=== PATIENT | male | born 1940 | race Caucasian/White ===

== ENCOUNTER 2017-01-05 22:15 | Emergency (ER) | payer MEDICARE ==
[2017-01-05 22:35] LABS: Glucose,Whole Blood 112 mg/dL (75-99)
[2017-01-05 23:06] LABS: Basophils % (A) 0 %; CH 35.1; CHCM 34.2; Eosinophils # (A) 0.2 k/uL (0-0.7); Eosinophils % (A) 2 %; HCT 47.9 % (39.0-53.0); HDW 2.16; HGB 15.9 gm/dL (13.0-17.5); Luc # (Auto) 0.16; Luc % (Auto) 2; Lymphocytes # (A) 1.2 k/uL (1.0-4.8); Lymphocytes % (A) 16 %; MCH 34.2 pg (25.0-35.0); MCHC 33.2 g/dL (31.0-37.0); MCV 103.1 fL (80.0-100.0); Macrocytosis Slight; Monocytes # (A) 0.4 k/uL (0-1.0); Monocytes % (A) 5 %; Neutrophils # (A) 5.3 k/uL (1.3-7.7); Neutrophils % (A) 74 %; RBC 4.65 m/uL (4.30-5.90); RDW 13.5 % (11.5-15.5); WBC 7.2 k/uL (3.8-10.6); WBC (Perox) 7.03
[2017-01-05 23:14] LABS: Anion Gap 12 mmol/L; Calcium 9.4 mg/dL (8.4-10.2); Carbon Dioxide 24 mmol/L (22-30); Chloride 104 mmol/L (98-107); Glucose 117 mg/dL (74-99); Non-African American GFR(MDRD) >60 (>60 ml/min/1.73 sqM); Sodium 140 mmol/L (137-145); Total Bilirubin 0.8 mg/dL (0.2-1.3); Total Protein 6.7 g/dL (6.3-8.2)
[2017-01-05 23:16] LABS: ALT 36 U/L (21-72); AST 29 U/L (17-59); Alkaline Phosphatase 62 U/L (38-126); Blood Urea Nitrogen 33 mg/dL (9-20); Phosphorous 3.4 mg/dL (2.5-4.5); Potassium 4.1 mmol/L (3.5-5.1)
--- NOTE | 2017-01-05 23:25 | XR ---
EXAM: XR Chest, 2 Views CLINICAL HISTORY: Reason: Pain TECHNIQUE: Frontal and lateral views of the chest. COMPARISON: 09/12/15 FINDINGS: Lungs: Left basilar platelike atelectasis. Pleural space: Unremarkable. No pneumothorax. Heart: Unremarkable. No cardiomegaly. Mediastinum: Unremarkable. Bones/joints: Multilevel degenerative changes of the spine with bridging marginal osteophytes. IMPRESSION: Left basilar platelike atelectasis.
[2017-01-05 23:27] LABS: Creatine Kinase 48 U/L (55-170)
[2017-01-05 23:39] LABS: Creatine Kinase MB 1.3 ng/mL (0.0-2.4); Troponin I <0.012 ng/mL (0.000-0.034)
--- NOTE | 2017-01-05 23:53 | ED ---
Altered Mental Status HPI - General Source: patient Mode of arrival: ambulatory Limitations: altered mental status <Subha Elizabeth - Last Filed: 01/06/17 00:47> <AntwanRoc - Last Filed: 01/06/17 00:56> - General Chief Complaint: Altered Mental Status Stated Complaint: altered Time Seen by Provider: 01/05/17 22:29 - History of Present Illness Initial Comments: 76-year-old male patient presents to emergency department today after having an episode of acute confusion and slurred speech. states that she and the patient were lying in bed having a conversation. She states that he went by it when she asked him what was wrong when he spoke his speech was garbled. She states that he has had numerous episodes similar to this in the past. He has known hypoglycemia. She did give the patient glucose tablets and try to get him to drink some milk. states that after he took a sip of an out patient started breathing heavily. She states that when she tried a question patient asked what was wrong he seemed confused and wouldn't answer her. She states when his breathing continued to be labored she called EMS. She states at that time patient asked her what she was doing, took the phone from her hand and tried to brush his hair with her. She states that patient continued with the confusion for about 35 minutes. She states EMS did arrive there patient seemed to come out of it. She states that he repeatedly questioned why EMS was there. She did convince him to come to the emergency department for evaluation. During my exam patient is alert and oriented 4. Patient states he has a foggy memory of the incident. states that he seemed to be back to normal. Speech is fluent and clear. Patient denies any headache, dizziness, weakness, chest pain, shortness of breath,, congestion, abdominal pain, nausea, vomiting, conservation, diarrhea, hematuria, dysuria, urinary frequency or urinary urgency. The patient states that he has had 50 similar episodes over the last 4 years. 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 states that patient seems to get the episodes more often when he does heavy labor. She states that over the last 2 days he has been cutting down trees and loading the residual wood. She states that they have had full workups and numerous CAT scans in the past and have not been able to find the cause of these episodes. Patient states that they do have a follow-up appointment at [facility] tomorrow with a genetics nurse. States that he goes for a rechecks every 6 months. (Subha Elizabeth) - Related Data Home Medications Medication Instructions Recorded Confirmed Testosterone [Androderm] 2 patch TOPICAL DAILY 09/26/14 01/05/17 Multivit-Min/FA/Lycopen/Lutein 1 tab PO DAILY 09/12/15 01/05/17 [Centrum Silver Tablet] Phos-Nak Powder Concentrate 1 packet PO QID 09/12/15 01/05/17 Biotin 5 mg PO DAILY 01/05/17 01/05/17 Cyanocobalamin (Vitamin B-12) 1,000 mcg PO DAILY 01/05/17 01/05/17 [Vitamin B-12] Allergies Allergy/AdvReac Type Severity Reaction Status Date / Time No Known Allergies Allergy Verified 01/05/17 23:26 Review of Systems ROS Other: All systems not noted in ROS Statement are negative. <Subha Elizabeth - Last Filed: 01/06/17 00:47> ROS Other: All systems not noted in ROS Statement are negative. <Roc Moncada - Last Filed: 01/06/17 00:56> ROS Statement: Those systems with pertinent positive or pertinent negative responses have been documented in the HPI. 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 History of Any Multi-Drug Resistant Organisms: None Reported Past Surgical History: Appendectomy, Hernia Repair Additional Past Surgical History / Comment(s): DEVIATED NASAL SEPTUM SX X2, TURP , HAD A PERM PACER PUT due to syncopy but found to have LOW PHOSPHOUS-PACER SINCE REMOVED BUT WIRES STILL IN PLACE.COLONOSCPY, EGD, L inguina hernia repair, electrical vaporization of prostate twice. sinus surgery , colonoscopy Past Anesthesia/Blood Transfusion Reactions: No Reported Reaction Additional Past Anesthesia/Blood Transfusion Reaction / Comment(s): Pt has never received blood. Past Psychological History: No Psychological Hx Reported Smoking Status: Former smoker Past Alcohol Use History: None Reported Past Drug Use History: None Reported - Past Family History Father Family Medical History: Myocardial Infarction ([place]) Additional Family Medical History / Comment(s): Father at age 66 or 67yrs of possible UT Mother Family Medical History: No Reported History Additional Family Medical History / Comment(s): AGE 93 was healthy Brother(s) Family Medical History: Cancer Additional Family Medical History / Comment(s): BRAIN CANCER <Subha Elizabeth - Last Filed: 01/06/17 00:47> General Exam Limitations: altered mental status General appearance: alert, in no apparent distress Head exam: Present: atraumatic, normocephalic, normal inspection Eye exam: Present: normal appearance, PERRL, EOMI. Absent: scleral icterus, conjunctival injection, periorbital swelling Pupils: Present: normal accommodation ENT exam: Present: normal exam, normal oropharynx, mucous membranes moist Neck exam: Present: normal inspection. Absent: tenderness, meningismus, lymphadenopathy Respiratory exam: Present: normal lung sounds bilaterally. Absent: respiratory distress, wheezes, rales, rhonchi, stridor Cardiovascular Exam: Present: regular rate, normal rhythm, normal heart sounds. Absent: systolic murmur, diastolic murmur, rubs, gallop, clicks GI/Abdominal exam: Present: soft, normal bowel sounds. Absent: distended, tenderness, guarding, rebound, rigid Extremities exam: Present: normal inspection, full ROM, normal capillary refill. Absent: tenderness, pedal edema, joint swelling, calf tenderness Back exam: Present: normal inspection Neurological exam: Present: alert, oriented X3, CN II-XII intact, other (GCS 15. NIHHS 0. ) Psychiatric exam: Present: normal affect, normal mood Skin exam: Present: warm, dry, intact, normal color. Absent: rash <Subha Elizabeth - Last Filed: 01/06/17 00:47> Course <Subha Elizabeth - Last Filed: 01/06/17 00:47> <Roc Moncada - Last Filed: 01/06/17 00:56> Vital Signs 01/05/17 01/05/17 01/05/17 22:23 22:49 23:03 Temperature 98.7 F Pulse Rate 77 78 78 Respiratory 20 18 18 Rate Blood Pressure 178/84 149/82 151/76 O2 Sat by Pulse 96 99 99 Oximetry 01/06/17 01/06/17 00:00 00:52 Temperature 97.4 F L Pulse Rate 75 69 Respiratory 18 16 Rate Blood Pressure 154/78 119/70 O2 Sat by Pulse 95 98 Oximetry - Reevaluation(s) Reevaluation #1: 01/06/17 00:56 I did personally evaluate this case and did review the findings. The patient does not want to be admitted to the hospital at this time. This apparently is one of many similar events in the past. They do not want CAT scan. They will follow-up with her doctor on palpation. There are where the risks and benefits. They were offered admission and did not want to be admitted. (Roc Moncada) Medical Decision Making - Lab Data Result diagrams: 01/05/17 22:40 01/05/17 22:40 - Radiology Data Radiology results: report reviewed, image reviewed <Subha Elizabeth - Last Filed: 01/06/17 00:47> - Lab Data Result diagrams: 01/05/17 22:40 01/05/17 22:40 <Roc Moncada - Last Filed: 01/06/17 00:56> - Medical Decision Making 76-year-old male patient presented to emergency department today after an acute episode of confusion and slurred speech. states episode lasted about 35 minutes. She also stated the patient has had approximately 50 episodes similar to this over the last 4 years, has had a workup numerous times without any diagnosis for why this keeps happening. Did offer a computed tomography scan at patient presentation. They state they have had numerous CT scans in the past all have been normal, they refused this test at this time. Labs were performed and reviewed and did show some mild dehydration. Phosphorus level is normal at this time. Chest x-ray no acute cardiopulmonary process. Did recommend admission for further evaluation and observation per patient. Patient states that he is feeling back to his normal self, states that patient seems to be acting normally for his baseline. They refused his admission at this time stating that he does have a follow-up appointment tomorrow that they do not want to miss. Patient is currently alert and oriented 4. Has remained alert and oriented 4 throughout stay in the emergency department. They state that he will follow-up with his primary care physician in one to 2 days for recheck. They state they will return immediately for any new, worsening, or concerning symptoms. (Subha Elizabeth) - Lab Data Lab Results 01/05/17 01/05/17 01/05/17 Range/Units 22:33 22:40 22:40 WBC 7.2 (3.8-10.6) k/uL RBC 4.65 (4.30-5.90) m/uL Hgb 15.9 (13.0-17.5) gm/dL Hct 47.9 (39.0-53.0) % MCV 103.1 H (80.0-100.0) fL MCH 34.2 (25.0-35.0) pg MCHC 33.2 (31.0-37.0) g/dL RDW 13.5 (11.5-15.5) % Plt Count 142 L (150-450) k/uL Neutrophils % 74 % Lymphocytes % 16 % Monocytes % 5 % Eosinophils % 2 % Basophils % 0 % Neutrophils # 5.3 (1.3-7.7) k/uL Lymphocytes # 1.2 (1.0-4.8) k/uL Monocytes # 0.4 (0-1.0) k/uL Eosinophils # 0.2 (0-0.7) k/uL Basophils # 0.0 (0-0.2) k/uL Macrocytosis Slight Sodium (137-145) mmol/L Potassium (3.5-5.1) mmol/L Chloride (98-107) mmol/L Carbon Dioxide (22-30) mmol/L Anion Gap mmol/L BUN (9-20) mg/dL Creatinine (0.66-1.25) mg/dL Est GFR (MDRD) Af Amer (>60 ml/min/1.73 sqM) Est GFR (MDRD) Non-Af (>60 ml/min/1.73 sqM) Glucose (74-99) mg/dL POC Glucose (mg/dL) 112 H (75-99) mg/dL POC Glu Center Director Lead Teacher ID Edith Boudreaux Calcium (8.4-10.2) mg/dL Phosphorus (2.5-4.5) mg/dL Total Bilirubin (0.2-1.3) mg/dL AST (17-59) U/L ALT (21-72) U/L Alkaline Phosphatase (38-126) U/L Total Creatine Kinase 48 L (55-170) U/L CK-MB (CK-2) 1.3 (0.0-2.4) ng/mL CK-MB (CK-2) Rel Index 2.7 Troponin I <0.012 (0.000-0.034) ng/mL Total Protein (6.3-8.2) g/dL Albumin (3.5-5.0) g/dL Urine Color Urine Appearance (Clear) Urine pH (5.0-8.0) Ur Specific [place] (1.001-1.035) Urine Protein (Negative) Urine Glucose (UA) (Negative) Urine Ketones (Negative) Urine Blood (Negative) Urine Nitrite (Negative) Urine Bilirubin (Negative) Urine Urobilinogen (<2.0) mg/dL Ur Leukocyte Esterase (Negative) 01/05/17 01/05/17 Range/Units 22:40 23:51 WBC (3.8-10.6) k/uL RBC (4.30-5.90) m/uL Hgb (13.0-17.5) gm/dL Hct (39.0-53.0) % MCV (80.0-100.0) fL MCH (25.0-35.0) pg MCHC (31.0-37.0) g/dL RDW (11.5-15.5) % Plt Count (150-450) k/uL Neutrophils % % Lymphocytes % % Monocytes % % Eosinophils % % Basophils % % Neutrophils # (1.3-7.7) k/uL Lymphocytes # (1.0-4.8) k/uL Monocytes # (0-1.0) k/uL Eosinophils # (0-0.7) k/uL Basophils # (0-0.2) k/uL Macrocytosis Sodium 140 (137-145) mmol/L Potassium 4.1 (3.5-5.1) mmol/L Chloride 104 (98-107) mmol/L Carbon Dioxide 24 (22-30) mmol/L Anion Gap 12 mmol/L BUN 33 H (9-20) mg/dL Creatinine 1.00 (0.66-1.25) mg/dL Est GFR (MDRD) Af Amer >60 (>60 ml/min/1.73 sqM) Est GFR (MDRD) Non-Af >60 (>60 ml/min/1.73 sqM) Glucose 117 H (74-99) mg/dL POC Glucose (mg/dL) (75-99) mg/dL POC Glu Center Director Lead Teacher ID Calcium 9.4 (8.4-10.2) mg/dL Phosphorus 3.4 (2.5-4.5) mg/dL Total Bilirubin 0.8 (0.2-1.3) mg/dL AST 29 (17-59) U/L ALT 36 (21-72) U/L Alkaline Phosphatase 62 (38-126) U/L Total Creatine Kinase (55-170) U/L CK-MB (CK-2) (0.0-2.4) ng/mL CK-MB (CK-2) Rel Index Troponin I (0.000-0.034) ng/mL Total Protein 6.7 (6.3-8.2) g/dL Albumin 4.2 (3.5-5.0) g/dL Urine Color Yellow Urine Appearance Clear (Clear) Urine pH 6.5 (5.0-8.0) Ur Specific [place] 1.017 (1.001-1.035) Urine Protein Negative (Negative) Urine Glucose (UA) Negative (Negative) Urine Ketones Negative (Negative) Urine Blood Negative (Negative) Urine Nitrite Negative (Negative) Urine Bilirubin Negative (Negative) Urine Urobilinogen <2.0 (<2.0) mg/dL Ur Leukocyte Esterase Negative (Negative) - Radiology Data Two-view x-ray of the chest shows left basilar platelike atelectasis, pleural spaces unremarkable, no pneumothorax, heart is unremarkable no cardia megaly, mediastinum is unremarkable, bones and joints show multilevel degenerative changes of the spine with bridging marginal osteophytes. Impression by Dr. Clark reveals left basilar platelike atelectasis. (Subha Elizabeth) Disposition Time of Disposition: 00:47 <Subha Elizabeth - Last Filed: 01/06/17 00:47> <Roc Moncada - Last Filed: 01/06/17 00:56> Clinical Impression: Episode of confusion Disposition: HOME SELF-CARE Condition: Good Instructions: Altered Mental Status (ED) Additional Instructions: Keep scheduled appointment with her genetics nurse tomorrow at [facility]. Follow up with primary care physician in one to 2 days for recheck. Return immediately for any new, worsening, returning, or concerning symptoms. Referrals: Akbar Encinas MD [Primary Care Provider] - 1-2 days
[2017-01-06 00:04] LABS: Appearance,Urine Clear (Clear); Bilirubin,Urine Negative (Negative); Glucose,Urine (UA) Negative (Negative); Ketones,Urine Negative (Negative); Leukocyte Esterase,Urine Negative (Negative); Nitrite,Urine Negative (Negative); PH, Urine 6.5 (5.0-8.0); Protein,Urine Negative (Negative); Specific Gravity,Urine 1.017 (1.001-1.035); UA Billing (MACRO vs. MICRO) CHEM; Urobilinogen,Urine <2.0 mg/dL (<2.0)
[2017-01-06 00:54] VITALS: BP 119/70; PULSE 69; RESP 16; TEMP 97.4
== END 2017-01-06 00:52 | disposition home or self-care (01) ==
LOC: EC 22:15
DX: R41.0 Disorientation, unspecified (principal); E83.30 Disorder of phosphorus metabolism, unspecified; J98.11 Atelectasis; Z79.899 Other long term (current) drug therapy; Z87.891 Personal history of nicotine dependence
CPT/HCPCS: 36415; 71020; 80053; 81003; 82550; 82553; 84100; 84484; 85025; 93005; 99285

== ENCOUNTER → 2017-11-19 | Outpatient (CLI) | payer MEDICARE | END | disposition home or self-care (01) | LOC: LABWHC1 09:10 | PROVIDERS: ATTEND Family Medicine | DX: E27.40 Unspecified adrenocortical insufficiency (principal) | CPT/HCPCS: 36415; 82024; 82533 ==

== ENCOUNTER 2018-03-30 03:17 | Inpatient (IN) | payer MEDICARE ==
[2018-03-30] MEDS ORDERED: LORazepam 2 MG/ML INJ IM STA (03:23)
[2018-03-30] MEDS ORDERED: SODIUM CHLORIDE 0.9% 1,000 ML IV STA (03:23)
[2018-03-30 03:31] LABS: Glucose,Whole Blood 140 mg/dL (75-99)
[2018-03-30 03:43] LABS: Basophils % (A) 0 %; Eosinophils # (A) 0.3 k/uL (0-0.7); Eosinophils % (A) 3 %; HCT 45.4 % (39.0-53.0); HGB 15.1 gm/dL (13.0-17.5); Lymphocytes # (A) 3.7 k/uL (1.0-4.8); Lymphocytes % (A) 37 %; MCHC 33.3 g/dL (31.0-37.0); MCV 102.3 fL (80.0-100.0); Macrocytosis Slight; Mean Platelet Volume 8.1; Monocytes # (A) 0.5 k/uL (0-1.0); Monocytes % (A) 5 %; Neutrophils # (A) 5.2 k/uL (1.3-7.7); Neutrophils % (A) 53 %; Platelet Count 193 k/uL (150-450); RBC 4.44 m/uL (4.30-5.90); RDW 12.8 % (11.5-15.5); WBC 9.9 k/uL (3.8-10.6)
[2018-03-30 03:55] LABS: ALT 31 U/L (21-72); AST 25 U/L (17-59); Albumin 4.1 g/dL (3.5-5.0); Alcohol <10 mg/dL; Alkaline Phosphatase 64 U/L (38-126); Anion Gap 11 mmol/L; Blood Urea Nitrogen 29 mg/dL (9-20); Calcium 9.6 mg/dL (8.4-10.2); Carbon Dioxide 24 mmol/L (22-30); Chloride 105 mmol/L (98-107); Glucose 149 mg/dL (74-99); Potassium 3.5 mmol/L (3.5-5.1); Sodium 140 mmol/L (137-145); Total Bilirubin 0.6 mg/dL (0.2-1.3); Total Protein 6.7 g/dL (6.3-8.2)
[2018-03-30 04:09] LABS: Appearance,Urine Clear (Clear); Bilirubin,Urine Negative (Negative); Blood,Urine Negative (Negative); Color,Urine Yellow; Glucose,Urine (UA) Negative (Negative); Ketones,Urine Negative (Negative); Leukocyte Esterase,Urine Negative (Negative); Nitrite,Urine Negative (Negative); PH, Urine 6.5 (5.0-8.0); Protein,Urine Trace (Negative); Urobilinogen,Urine <2.0 mg/dL (<2.0)
--- NOTE | 2018-03-30 04:16 | ED ---
Altered Mental Status HPI - General Chief Complaint: Altered Mental Status Stated Complaint: Altered Mental Status Time Seen by Provider: 03/30/18 03:23 Source: patient, EMS Mode of arrival: EMS Limitations: no limitations, altered mental status - History of Present Illness Initial Comments: Wilson Lozano is a 77-year-old male with a distant medical history of a single seizure in his 50s which his reports was due to low phosphorus level. Patient was subsequently had a phosphorus supplementation until June of this year. The patient has been in his usual state of health, reports that the exercise regularly walking at least a mile every day and doing yoga. She reports that she woke up to find him shaking and not responding to her to get his attention. She was concerned that he was seizing and 911 was called. EMS reports that they arrived on scene, the patient was altered, not responding appropriately. Patient is noted to have some tongue biting and also urinary incontinence. Patient was combative with EMS and was restrained and transported to the ER for further evaluation. - Related Data Home Medications Medication Instructions Recorded Confirmed Multivit-Min/FA/Lycopen/Lutein 1 tab PO DAILY 09/12/15 03/30/18 [Centrum Silver Tablet] Cyanocobalamin (Vitamin B-12) 1,000 mcg PO DAILY 01/05/17 03/30/18 [Vitamin B-12] Allergies Allergy/AdvReac Type Severity Reaction Status Date / Time No Known Allergies Allergy Verified 03/30/18 03:23 Review of Systems ROS Statement: Those systems with pertinent positive or pertinent negative responses have been documented in the HPI. ROS Other: All systems not noted in ROS Statement are negative. ( provided review of systems to the best of her ability) Limitations: ROS unobtainable due to patients medical condition (Patient unable to provide review of systems due to altered mental status) Past Medical History Past Medical History: GERD/Reflux, Osteoarthritis (OA), Prostate Disorder, Seizure Disorder, Skin Disorder, Syncope Additional Past Medical History / Comment(s): low phosphorus-loss of consciousness with this at times-etiology unknown after numerous work-ups, HYPOTESTOSTERONISM, PSORIASES, ARTHRITIS,LACTOSE INTOLERANT, hx of BPH and has had prostate surgery twice, ocular migraines. History of Any Multi-Drug Resistant Organisms: None Reported Past Surgical History: Appendectomy, Hernia Repair Additional Past Surgical History / Comment(s): DEVIATED NASAL SEPTUM SX X2, TURP , HAD A PERM PACER PUT due to syncopy but found to have LOW PHOSPHOUS-PACER SINCE REMOVED BUT WIRES STILL IN PLACE.COLONOSCPY, EGD, L inguina hernia repair, electrical vaporization of prostate twice. sinus surgery , colonoscopy Past Anesthesia/Blood Transfusion Reactions: No Reported Reaction Additional Past Anesthesia/Blood Transfusion Reaction / Comment(s): Pt has never received blood. Past Psychological History: No Psychological Hx Reported Smoking Status: Former smoker Past Alcohol Use History: None Reported Past Drug Use History: None Reported - Past Family History Father Family Medical History: Myocardial Infarction ([place]) Additional Family Medical History / Comment(s): Father at age 66 or 67yrs of possible [place] Mother Family Medical History: No Reported History Additional Family Medical History / Comment(s): AGE 93 was healthy Brother(s) Family Medical History: Cancer Additional Family Medical History / Comment(s): BRAIN CANCER General Exam - General Exam Comments Initial Comments: Physical Exam GENERAL: Patient is altered, rashing, yelling out but not making any sense HENT: Normocephalic, Atraumatic. Noted to have tongue biting with dried blood in the oropharynx EYES: PERRL, EOMI PULMONARY: Unlabored respirations. No audible rales rhonchi or wheezing was noted. CARDIOVASCULAR: There is a regular rate and rhythm without any murmurs gallops or rubs. Pacemaker in place in left chest ABDOMEN: Soft and nontender with normal bowel sounds. SKIN: Skin is clear with no lesions or rashes and otherwise unremarkable. : Deferred NEUROLOGIC: Patient is awake, alert and agitated, oriented to self only MUSCULOSKELETAL: Normal extremities with adequate strength and full range of motion. No lower extremity swelling or edema. No calf tenderness. PSYCHIATRIC: Confused, agitated Limitations: no limitations Limitations: no limitations, altered mental status Course Vital Signs 03/30/18 03/30/18 03/30/18 03:20 03:26 03:30 Temperature 97.7 F Pulse Rate 93 93 92 Respiratory 20 13 16 Rate Blood Pressure 146/87 169/97 162/86 O2 Sat by Pulse 97 Oximetry 03/30/18 03/30/18 03/30/18 03:40 03:50 04:00 Temperature Pulse Rate 85 Respiratory 15 12 Rate Blood Pressure 146/87 150/83 150/83 O2 Sat by Pulse Oximetry 03/30/18 03/30/18 03/30/18 04:10 04:20 04:30 Temperature Pulse Rate 79 80 78 Respiratory 12 17 14 Rate Blood Pressure 138/79 138/79 O2 Sat by Pulse 90 L 97 95 Oximetry 03/30/18 03/30/18 03/30/18 04:40 04:50 05:00 Temperature Pulse Rate 80 74 72 Respiratory 17 14 14 Rate Blood Pressure 137/91 100/49 100/49 O2 Sat by Pulse 91 L 93 L 93 L Oximetry 03/30/18 03/30/18 05:20 05:30 Temperature Pulse Rate 73 79 Respiratory 19 16 Rate Blood Pressure 93/50 93/50 O2 Sat by Pulse 93 L 94 L Oximetry Medical Decision Making - Medical Decision Making Patient arrived to the ER via EMS priority 1 Patient was seen and evaluated immediately upon arrival to the emergency department Patient was agitated and thrashing, striking out at staff. Concerning the patient is postictal, IM Ativan was ordered Labs and imaging were ordered Patient became calm after IM Ativan, was able to cooperate for computed tomography scan Labs notable for elevated lactic which is likely secondary to seizure activity CT head with no acute findings Patient resting comfortably after IM Ativan Results were discussed with the patient's At this time I have a high suspicion that this patient did in fact have a seizure. I will plan to admit him to the hospital with seizure precautions and a consult to neurology. is agreeable to this. Patient care was discussed with his primary care physician Dr. Encinas who accepts the admission. - Lab Data Result diagrams: 03/30/18 03:30 03/30/18 03:30 Lab Results 03/30/18 03/30/18 03/30/18 Range/Units 03:26 03:30 03:30 WBC 9.9 (3.8-10.6) k/uL RBC 4.44 (4.30-5.90) m/uL Hgb 15.1 (13.0-17.5) gm/dL Hct 45.4 (39.0-53.0) % MCV 102.3 H (80.0-100.0) fL MCH 34.0 (25.0-35.0) pg MCHC 33.3 (31.0-37.0) g/dL RDW 12.8 (11.5-15.5) % Plt Count 193 (150-450) k/uL Neutrophils % 53 % Lymphocytes % 37 % Monocytes % 5 % Eosinophils % 3 % Basophils % 0 % Neutrophils # 5.2 (1.3-7.7) k/uL Lymphocytes # 3.7 (1.0-4.8) k/uL Monocytes # 0.5 (0-1.0) k/uL Eosinophils # 0.3 (0-0.7) k/uL Basophils # 0.0 (0-0.2) k/uL Macrocytosis Slight PT (9.0-12.0) sec INR (<1.2) APTT (22.0-30.0) sec Sodium 140 (137-145) mmol/L Potassium 3.5 (3.5-5.1) mmol/L Chloride 105 (98-107) mmol/L Carbon Dioxide 24 (22-30) mmol/L Anion Gap 11 mmol/L BUN 29 H (9-20) mg/dL Creatinine 1.11 (0.66-1.25) mg/dL Est GFR (CKD-EPI)AfAm 73 (>60 ml/min/1.73 sqM) Est GFR (CKD-EPI)NonAf 63 (>60 ml/min/1.73 sqM) Glucose 149 H (74-99) mg/dL POC Glucose (mg/dL) 140 H (75-99) mg/dL POC Glu Senior National Account Manager ID Lorraine Alas Plasma Lactic Acid Amish (0.7-2.0) mmol/L Calcium 9.6 (8.4-10.2) mg/dL Phosphorus (2.5-4.5) mg/dL Total Bilirubin 0.6 (0.2-1.3) mg/dL AST 25 (17-59) U/L ALT 31 (21-72) U/L Alkaline Phosphatase 64 (38-126) U/L Troponin I (0.000-0.034) ng/mL Total Protein 6.7 (6.3-8.2) g/dL Albumin 4.1 (3.5-5.0) g/dL Urine Color Urine Appearance (Clear) Urine pH (5.0-8.0) Ur Specific [place] (1.001-1.035) Urine Protein (Negative) Urine Glucose (UA) (Negative) Urine Ketones (Negative) Urine Blood (Negative) Urine Nitrite (Negative) Urine Bilirubin (Negative) Urine Urobilinogen (<2.0) mg/dL Ur Leukocyte Esterase (Negative) Urine Opiates Screen (NotDetected) Ur Oxycodone Screen (NotDetected) Urine Methadone Screen (NotDetected) Ur Propoxyphene Screen (NotDetected) Ur Barbiturates Screen (NotDetected) U Tricyclic Antidepress (NotDetected) Ur Phencyclidine Scrn (NotDetected) Ur Amphetamines Screen (NotDetected) U Methamphetamines Scrn (NotDetected) U Benzodiazepines Scrn (NotDetected) Urine Cocaine Screen (NotDetected) U Marijuana (THC) Screen (NotDetected) Serum Alcohol <10 mg/dL 03/30/18 03/30/18 03/30/18 Range/Units 03:30 03:30 03:30 WBC (3.8-10.6) k/uL RBC (4.30-5.90) m/uL Hgb (13.0-17.5) gm/dL Hct (39.0-53.0) % MCV (80.0-100.0) fL MCH (25.0-35.0) pg MCHC (31.0-37.0) g/dL RDW (11.5-15.5) % Plt Count (150-450) k/uL Neutrophils % % Lymphocytes % % Monocytes % % Eosinophils % % Basophils % % Neutrophils # (1.3-7.7) k/uL Lymphocytes # (1.0-4.8) k/uL Monocytes # (0-1.0) k/uL Eosinophils # (0-0.7) k/uL Basophils # (0-0.2) k/uL Macrocytosis PT 10.0 (9.0-12.0) sec INR 1.0 (<1.2) APTT 21.0 L (22.0-30.0) sec Sodium (137-145) mmol/L Potassium (3.5-5.1) mmol/L Chloride (98-107) mmol/L Carbon Dioxide (22-30) mmol/L Anion Gap mmol/L BUN (9-20) mg/dL Creatinine (0.66-1.25) mg/dL Est GFR (CKD-EPI)AfAm (>60 ml/min/1.73 sqM) Est GFR (CKD-EPI)NonAf (>60 ml/min/1.73 sqM) Glucose (74-99) mg/dL POC Glucose (mg/dL) (75-99) mg/dL POC Glu Senior National Account Manager ID Plasma Lactic Acid Amish 4.9 H* (0.7-2.0) mmol/L Calcium (8.4-10.2) mg/dL Phosphorus (2.5-4.5) mg/dL Total Bilirubin (0.2-1.3) mg/dL AST (17-59) U/L ALT (21-72) U/L Alkaline Phosphatase (38-126) U/L Troponin I <0.012 (0.000-0.034) ng/mL Total Protein (6.3-8.2) g/dL Albumin (3.5-5.0) g/dL Urine Color Urine Appearance (Clear) Urine pH (5.0-8.0) Ur Specific [place] (1.001-1.035) Urine Protein (Negative) Urine Glucose (UA) (Negative) Urine Ketones (Negative) Urine Blood (Negative) Urine Nitrite (Negative) Urine Bilirubin (Negative) Urine Urobilinogen (<2.0) mg/dL Ur Leukocyte Esterase (Negative) Urine Opiates Screen (NotDetected) Ur Oxycodone Screen (NotDetected) Urine Methadone Screen (NotDetected) Ur Propoxyphene Screen (NotDetected) Ur Barbiturates Screen (NotDetected) U Tricyclic Antidepress (NotDetected) Ur Phencyclidine Scrn (NotDetected) Ur Amphetamines Screen (NotDetected) U Methamphetamines Scrn (NotDetected) U Benzodiazepines Scrn (NotDetected) Urine Cocaine Screen (NotDetected) U Marijuana (THC) Screen (NotDetected) Serum Alcohol mg/dL 03/30/18 03/30/18 Range/Units 03:30 03:42 WBC (3.8-10.6) k/uL RBC (4.30-5.90) m/uL Hgb (13.0-17.5) gm/dL Hct (39.0-53.0) % MCV (80.0-100.0) fL MCH (25.0-35.0) pg MCHC (31.0-37.0) g/dL RDW (11.5-15.5) % Plt Count (150-450) k/uL Neutrophils % % Lymphocytes % % Monocytes % % Eosinophils % % Basophils % % Neutrophils # (1.3-7.7) k/uL Lymphocytes # (1.0-4.8) k/uL Monocytes # (0-1.0) k/uL Eosinophils # (0-0.7) k/uL Basophils # (0-0.2) k/uL Macrocytosis PT (9.0-12.0) sec INR (<1.2) APTT (22.0-30.0) sec Sodium (137-145) mmol/L Potassium (3.5-5.1) mmol/L Chloride (98-107) mmol/L Carbon Dioxide (22-30) mmol/L Anion Gap mmol/L BUN (9-20) mg/dL Creatinine (0.66-1.25) mg/dL Est GFR (CKD-EPI)AfAm (>60 ml/min/1.73 sqM) Est GFR (CKD-EPI)NonAf (>60 ml/min/1.73 sqM) Glucose (74-99) mg/dL POC Glucose (mg/dL) (75-99) mg/dL POC Glu Senior National Account Manager ID Plasma Lactic Acid Amish (0.7-2.0) mmol/L Calcium (8.4-10.2) mg/dL Phosphorus 3.0 (2.5-4.5) mg/dL Total Bilirubin (0.2-1.3) mg/dL AST (17-59) U/L ALT (21-72) U/L Alkaline Phosphatase (38-126) U/L Troponin I (0.000-0.034) ng/mL Total Protein (6.3-8.2) g/dL Albumin (3.5-5.0) g/dL Urine Color Yellow Urine Appearance Clear (Clear) Urine pH 6.5 (5.0-8.0) Ur Specific [place] 1.020 (1.001-1.035) Urine Protein Trace H (Negative) Urine Glucose (UA) Negative (Negative) Urine Ketones Negative (Negative) Urine Blood Negative (Negative) Urine Nitrite Negative (Negative) Urine Bilirubin Negative (Negative) Urine Urobilinogen <2.0 (<2.0) mg/dL Ur Leukocyte Esterase Negative (Negative) Urine Opiates Screen Not Detected (NotDetected) Ur Oxycodone Screen Not Detected (NotDetected) Urine Methadone Screen Not Detected (NotDetected) Ur Propoxyphene Screen Not Detected (NotDetected) Ur Barbiturates Screen Not Detected (NotDetected) U Tricyclic Antidepress Not Detected (NotDetected) Ur Phencyclidine Scrn Not Detected (NotDetected) Ur Amphetamines Screen Not Detected (NotDetected) U Methamphetamines Scrn Not Detected (NotDetected) U Benzodiazepines Scrn Not Detected (NotDetected) Urine Cocaine Screen Not Detected (NotDetected) U Marijuana (THC) Screen Not Detected (NotDetected) Serum Alcohol mg/dL - EKG Data EKG Comments: EKG obtained at 3:25 AM, rate is 93, rhythm is sinus, there is a left axis, there are normal intervals, LA 184, QRS 120, QTC 489. There is noted to be a biphasic T-wave in V3 no other acute ST elevations or depressions. Disposition Clinical Impression: Seizure, Lactic acidosis Disposition: ADMITTED IP TO THIS [facility] Condition: Stable Is patient prescribed a controlled substance at d/c from ED?: No Referrals: Akbar Encinas MD [Primary Care Provider] - 1-2 days
[2018-03-30 04:21] LABS: Amphetamine Screen,Urine Not Detected (NotDetected); Barbiturate Screen,Urine Not Detected (NotDetected); Benzodiazepines Screen,Urine Not Detected (NotDetected); Cocaine Screen,Urine Not Detected (NotDetected); Methadone Screen, Urine Not Detected (NotDetected); Opiate Screen,Urine Not Detected (NotDetected); Oxycodone Screen, Urine Not Detected (NotDetected); Phencyclidine Screen,Urine Not Detected (NotDetected); Tricyclic Antidepressant,Urine Not Detected (NotDetected); Urn Cannabinoid Scrn Not Detected (NotDetected)
[2018-03-30] MEDS ORDERED: SODIUM CHLORIDE 0.9% 2,000 ML IV STA (04:24)
--- NOTE | 2018-03-30 04:29 | CT ---
EXAM: CT Head Without Intravenous Contrast CLINICAL HISTORY: ITS.REASON CT Reason: seizure activity TECHNIQUE: Axial computed tomography images of the head/brain without intravenous contrast. CTDI is 38 mGy and DLP is 844 mGy-cm. This CT exam was performed using one or more of the following dose reduction techniques: automated exposure control, adjustment of the mA and/or kV according to patient size, and/or use of iterative reconstruction technique. COMPARISON: CT brain 09/12/15 FINDINGS: Brain: No hemorrhage, large hypodensity, or mass effect. Ventricles: No hydrocephalus. Bones/joints: Unremarkable. Soft tissues: Unremarkable. Sinuses: Unremarkable. Mastoid air cells: Clear. IMPRESSION: No acute hemorrhage, hydrocephalus, or mass effect. If further evaluation is required, an MRI with epilepsy protocol is recommended.
[2018-03-30] MEDS ORDERED: NALOXONE 0.4 MG/ML 1 ML VIAL IV PRN (05:24)
[2018-03-30] MEDS ORDERED: LORazepam 2 MG/ML INJ IV PRN (05:27)
[2018-03-30] MEDS ORDERED: ASPIRIN 81 MG PO PRN (10:43)
[2018-03-30] MEDS: SODIUM CHLORIDE 0.9% 1,000 ML IV SCH ×3 (11:23→20:48)
--- NOTE | 2018-03-30 11:45 | P.HPIM ---
History of Present Illness 77-year-old male on presented to the emergency room by EMS with report of possible seizure post ictal. Patient had episode where he bit his tongue was not coherent and had urinary incontinence. Review of Systems Constitutional: Reports fatigue Neurological: Reports confusion, Reports motor disturbance Past Medical History Past Medical History: GERD/Reflux, Osteoarthritis (OA), Prostate Disorder, Seizure Disorder, Skin Disorder, Syncope Additional Past Medical History / Comment(s): Seizures, spouse states pt has had cardiac arrest in past, low phosphorus in past worked up extensively with at several institutions and no cause found/levels have been normal last few month/pt now off phosphorus medication, low testosterone in the past but levels have been normal last few months so pt is off testoterone rx, thought possibly had hypoglycemia, rare ocular migraines, BPH, psoriasis, lactose intolerant. History of Any Multi-Drug Resistant Organisms: None Reported Past Surgical History: Appendectomy, Hernia Repair, Pacemaker, Prostate Surgery Additional Past Surgical History / Comment(s): Prostrate vaporization and TURP, L inguinal hernia repair, deviated septum surgery, pacemaker later removed but still has wires, EGD/colonoscopy. Past Anesthesia/Blood Transfusion Reactions: No Reported Reaction Additional Past Anesthesia/Blood Transfusion Reaction / Comment(s): Pt has never received blood. Type of Cardiac Device: Permanent Pacemaker Device Placement Date:: 1996-since removed/still has wires Smoking Status: Former smoker - Past Family History Sister(s) Family Medical History: Thyroid Disorder Additional Family Medical History / Comment(s): Hyperthyroidism Father Family Medical History: Myocardial Infarction ([place]) Additional Family Medical History / Comment(s): Father at age 66 or 67yrs of [place] Mother Family Medical History: No Reported History Additional Family Medical History / Comment(s): AGE 93 was healthy Brother(s) Family Medical History: Cancer Additional Family Medical History / Comment(s): Older brother had geoblastoma/ brain cancer and younger brother with renal cancer/renal failure and is on dialysis. Medications and Allergies Home Medications Medication Instructions Recorded Confirmed Type Multivit-Min/FA/Lycopen/Lutein 1 tab PO DAILY 09/12/15 03/30/18 History [Centrum Silver Tablet] Aspirin 81 mg PO Q4H PRN 03/30/18 03/30/18 History Cholecalciferol [Vitamin D3] 1,000 unit PO DAILY 03/30/18 03/30/18 History Allergies Allergy/AdvReac Type Severity Reaction Status Date / Time lactose AdvReac Nausea & Verified 03/30/18 07:10 Vomiting & Diarrhea Physical Exam Vitals: Vital Signs Temp Pulse Pulse Resp BP BP Pulse Ox 03/30/18 08:00 98.2 F 71 18 157/94 94 L 03/30/18 06:40 71 18 120/67 94 L 03/30/18 06:30 54 L 16 108/69 94 L 03/30/18 06:20 72 19 108/69 94 L 03/30/18 06:10 73 19 107/60 93 L 03/30/18 06:00 75 20 102/58 93 L 03/30/18 05:50 74 18 102/58 93 L 03/30/18 05:40 74 18 99/56 93 L 03/30/18 05:30 79 16 93/50 94 L 03/30/18 05:20 73 19 93/50 93 L 03/30/18 05:00 72 14 100/49 93 L 03/30/18 04:50 74 14 100/49 93 L 03/30/18 04:40 80 17 137/91 91 L 03/30/18 04:30 78 14 138/79 95 03/30/18 04:20 80 17 138/79 97 03/30/18 04:10 79 12 90 L 03/30/18 04:00 150/83 03/30/18 03:50 12 150/83 03/30/18 03:40 85 15 146/87 03/30/18 03:30 92 16 162/86 03/30/18 03:26 93 13 169/97 03/30/18 03:20 97.7 F 93 20 146/87 97 Intake and Output 03/29/18 03/30/18 03/30/18 22:59 06:59 14:59 Other: Weight 81.284 kg - Constitutional General appearance: mild distress - EENT Eyes: PERRLA Ears: bilateral: normal - Neck Neck: normal ROM - Respiratory Respiratory: negative: CTA - Cardiovascular Rhythm: regular - Gastrointestinal General gastrointestinal: soft - Integumentary Integumentary: normal - Neurologic Neurologic: CNII-XII intact - Musculoskeletal Musculoskeletal: generalized weakness, strength equal bilaterally Results CBC & Chem 7: 03/30/18 03:30 03/30/18 03:30 Labs: Abnormal Lab Results - Last 24 Hours (Table) 03/30/18 03/30/18 03/30/18 Range/Units 03:26 03:30 03:30 MCV 102.3 H (80.0-100.0) fL APTT (22.0-30.0) sec BUN 29 H (9-20) mg/dL Glucose 149 H (74-99) mg/dL POC Glucose (mg/dL) 140 H (75-99) mg/dL Plasma Lactic Acid Amish (0.7-2.0) mmol/L Urine Protein (Negative) 03/30/18 03/30/18 03/30/18 Range/Units 03:30 03:30 03:42 MCV (80.0-100.0) fL APTT 21.0 L (22.0-30.0) sec BUN (9-20) mg/dL Glucose (74-99) mg/dL POC Glucose (mg/dL) (75-99) mg/dL Plasma Lactic Acid Amish 4.9 H* (0.7-2.0) mmol/L Urine Protein Trace H (Negative) CT Scan - head: report reviewed Thrombosis Risk Factor Assmnt - Choose All That Apply Any of the Below Risk Factors Present?: Yes Other Risk Factors: Yes Each Risk Factor Represents 3 Points: Age 75 years or older Other congenital or acquired thrombophilia - If yes, enter type in comment: No Thrombosis Risk Factor Assessment Total Risk Factor Score: 3 Thrombosis Risk Factor Assessment Level: Moderate Risk Assessment and Plan Plan: Assessment Seizure disorder Lactic acidosis GERD Osteoarthritis BPH Dehydration Plan Consultation with Dr. Pike regarding possibility of seizure
--- NOTE | 2018-03-30 17:57 | EEG ---
ELECTROENCEPHALOGRAM REPORT DATE OF SERVICE: 03/30/2018 REASON FOR TESTING: Altered mental status. DESCRIPTION OF THE PROCEDURE: This EEG was performed using a 21-channel digital electroencephalograph, following international 10-20 system. DESCRIPTION OF THE RECORDING: From the beginning of the tracing, and with the patient's eyes closed, the background rhythm was mostly consisting of 8 Hz alpha frequency in the posterior occipital leads. Muscle artifacts are seen. Photic stimulation was performed with no driving response seen. No pathological waves were elicited. Hyperventilation was not performed. The patient remains awake throughout the tracing. No epileptiform discharges were seen. His EKG lead showed a regular rate and rhythm. INTERPRETATION: This awake EEG can be considered within normal limits. There was no asymmetry seen. No epileptiform discharges were noticed. The absence of epileptiform discharges does not rule out the diagnosis of epilepsy; therefore clinical correlation is recommended. MMBELIAL / IJStan: [id number] /
--- NOTE | 2018-03-30 20:43 | P.CNNES ---
History of Present Illness Consult date: 03/30/18 Reason for Consult: Patient admitted with possible seizure. History of Present Illness: This patient is a 77-year-old right-handed white male who was in his usual state of health until early this morning. According to the patient's who was at bedside today and provided the medical history he apparently had what appeared to be a seizure early this morning at 3 AM. The was in bed and apparently she was aroused very quickly at about 3 AM when she noticed her was moving side to side and having lip smacking and grading of his teeth. She tried to help him and assist him to stop and he was unresponsive and he was staring into space. He bit his tongue and there was blood coming from the mouth onto his pillowcase. Apparently continued for several minutes in this fashion and she decided to call EMS. She tried to shake him to get him to snap out of the vent but he continued on relentlessly. When EMS arrived on the scene the patient remains somewhat confused and disoriented. He was not responding appropriately to the EMS personnel. He did bite his tongue and there was notation made by the EMS personnel stating that he had urinary incontinence. Patient became very combative and required restraints. He was transported to the emergency room where he was seen at [facility] ER by Dr. Izquierdo. She quickly assessed him in the ER at about 3 AM and noted that he was still very postictal and confused. His was also able to assist their and apparently he was given 1 mg of Ativan and this helped him to relax. Once he was less combative he was sent for a computed tomography scan of the brain which was reported to revealed no acute hemorrhage. There was no evidence of hydrocephalus or mass effect. MRI of the brain was recommended. Unfortunately the patient has a pacemaker and is unable to have MRI of the brain performed. He was noted to have elevation of his lactic acid level in the ER possibly secondary to a seizure. Dr. Izquierdo's impression in the ER was that the patient did in fact have a seizure. He was recommended admission to the hospital for neurology consultation. Patient is now examined at bedside with his present. His states that he clearly was confused and combative when she tried to arouse him at 3 AM this morning. She states he just would not open his mouth instead was grinding his teeth and had bit his tongue. As noted the patient was subtotally admitted to Hospital from the emergency room and is now doing much better. He is able to answer questions appropriately. On further questioning the patient states he has been having episodes which she attributes to dizzy spells off and on for the past several years. According to his he did have a seizure-like event in 1989. He was worked up at that time but apparently was not placed on long-term anticonvulsant therapy. The patient states he has been having small spells for the past several years off-and-on. He states they only last seconds in duration. In June of this year he had some changes to his medication list and was taken off of phosphorus. Apparently he had an admission in 2014 for similar episode of seizure-like events which was due to a mismanagement of his phosphorus dosage. In June Dr. Akbar Encinas advised him to discontinue his phosphorus. In November of this year he was also tapered off of his testosterone. Apparently he had been doing fairly well but still has little spells which is clearly not defined as to whether these may represent simple partial seizures or other alteration of consciousness. We discussed these findings in detail today with the patient and his at bedside. We are recommending the patient to be started on anticonvulsant therapy tonight and should have further follow-up and workup at the epilepsy monitoring unit at the [facility] when an appointment can be made for him. The patient and his are in agreement and will discuss this further with Dr. Encinas tomorrow morning. We are recommending discharge the patient on levetiracetam [ Keppra] 500 mg 1 by mouth twice a day starting tonight. He should have a follow -up Keppra level done in 1 week after discharge. He underwent a routine EEG today which was read by Dr. George as being normal. We recommend he should have follow-up in the epilepsy monitoring unit where he can be monitored for several days and a decision made whether he needs to be maintained on anticonvulsant therapy. We have also gone over the [place] driving law with the patient and his in detail today. The patient is aware that he cannot drive in the [facility] for appeared of 6 months following this event that occurred this morning suggesting underlying seizure. The patient states this be very inconvenient for him as he remains very active and feels he has to dry. We once again made it clear in our discussion with him that this is the [place] state law and that he should abide with these restrictions until further clearance from the specialist at the [facility] after appeared of 6 months. Apparently the patient is being seen at the [facility] for several other medical conditions. He denies any history of underlying cancer. As mentioned he is unable to have MRI of the brain as he has a pacemaker. We will continue close neurological follow- up for the patient during this admission. He should have a Keppra blood level done in a week to make sure he is in a therapeutic range. We once again clearly reviewed with the patient the [place] driving law which states he cannot drive for appeared of 6 months following his last seizure or syncopal episode. We will continue close neurological follow-up for the patient during this admission. We suggest that Dr. Akbar Encinas make arrangements for him to be seen in the epilepsy monitoring unit at the [facility] as soon as possible. Neurology is now been consulted for further evaluation and recommendations. Review of Systems Constitutional: Denies chills, Denies fever Eyes: denies blurred vision, denies pain Ears, nose, mouth and throat: Denies headache, Denies sore throat Cardiovascular: Denies chest pain, Denies shortness of breath Respiratory: Denies cough Gastrointestinal: Denies abdominal pain, Denies diarrhea, Denies nausea, Denies vomiting Musculoskeletal: Denies myalgias Integumentary: Denies pruritus, Denies rash Neurological: Reports confusion, Reports convulsions, Reports memory loss, Reports seizures, Denies numbness, Denies weakness Psychiatric: Denies anxiety, Denies depression Endocrine: Denies fatigue, Denies weight change Past Medical History Past Medical History: GERD/Reflux, Osteoarthritis (OA), Prostate Disorder, Seizure Disorder, Skin Disorder, Syncope Additional Past Medical History / Comment(s): Seizures, spouse states pt has had cardiac arrest in past, low phosphorus in past worked up extensively with at several institutions and no cause found/levels have been normal last few month/pt now off phosphorus medication, low testosterone in the past but levels have been normal last few months so pt is off testoterone rx, thought possibly had hypoglycemia, rare ocular migraines, BPH, psoriasis, lactose intolerant. History of Any Multi-Drug Resistant Organisms: None Reported Past Surgical History: Appendectomy, Hernia Repair, Pacemaker, Prostate Surgery Additional Past Surgical History / Comment(s): Prostrate vaporization and TURP, L inguinal hernia repair, deviated septum surgery, pacemaker later removed but still has wires, EGD/colonoscopy. Past Anesthesia/Blood Transfusion Reactions: No Reported Reaction Additional Past Anesthesia/Blood Transfusion Reaction / Comment(s): Pt has never received blood. Type of Cardiac Device: Permanent Pacemaker Device Placement Date:: 1996-since removed/still has wires Smoking Status: Former smoker - Past Family History Sister(s) Family Medical History: Thyroid Disorder Additional Family Medical History / Comment(s): Hyperthyroidism Father Family Medical History: Myocardial Infarction (CT) Additional Family Medical History / Comment(s): Father at age 66 or [address] Mother Family Medical History: No Reported History Additional Family Medical History / Comment(s): AGE 93 was healthy Brother(s) Family Medical History: Cancer Additional Family Medical History / Comment(s): Older brother had geoblastoma/ brain cancer and younger brother with renal cancer/renal failure and is on dialysis. Medications and Allergies Home Medications Medication Instructions Recorded Confirmed Type Multivit-Min/FA/Lycopen/Lutein 1 tab PO DAILY 09/12/15 03/30/18 History [Centrum Silver Tablet] Aspirin 81 mg PO Q4H PRN 03/30/18 03/30/18 History Cholecalciferol [Vitamin D3] 1,000 unit PO DAILY 03/30/18 03/30/18 History Allergies Allergy/AdvReac Type Severity Reaction Status Date / Time lactose AdvReac Nausea & Verified 03/30/18 07:10 Vomiting & Diarrhea Physical Examination - Vital Signs Vital Signs: Vital Signs Temp Pulse Pulse Resp BP BP Pulse Ox 03/30/18 16:00 98.0 F 71 18 107/59 96 03/30/18 11:49 98.3 F 90 18 147/70 97 03/30/18 08:00 98.2 F 71 18 157/94 94 L 03/30/18 06:40 71 18 120/67 94 L 03/30/18 06:30 54 L 16 108/69 94 L 03/30/18 06:20 72 19 108/69 94 L 03/30/18 06:10 73 19 107/60 93 L 03/30/18 06:00 75 20 102/58 93 L 03/30/18 05:50 74 18 102/58 93 L 03/30/18 05:40 74 18 99/56 93 L 03/30/18 05:30 79 16 93/50 94 L 03/30/18 05:20 73 19 93/50 93 L 03/30/18 05:00 72 14 100/49 93 L 03/30/18 04:50 74 14 100/49 93 L 03/30/18 04:40 80 17 137/91 91 L 03/30/18 04:30 78 14 138/79 95 03/30/18 04:20 80 17 138/79 97 03/30/18 04:10 79 12 90 L 03/30/18 04:00 150/83 03/30/18 03:50 12 150/83 03/30/18 03:40 85 15 146/87 03/30/18 03:30 92 16 162/86 03/30/18 03:26 93 13 169/97 03/30/18 03:20 97.7 F 93 20 146/87 97 Intake and Output 03/30/18 03/30/18 03/30/18 06:59 14:59 22:59 Intake Total 240 Balance 240 Intake: Oral 240 Other: Weight 81.284 kg - Constitutional General appearance: average body habitus, cooperative - EENT EENT: PERRL, mucous membranes moist - Respiratory Respiratory: lungs clear, normal breath sounds - Cardiovascular Cardiovascular: regular rate, normal S1, normal S2 Extremities: no peripheral edema bilaterally - Gastrointestinal Gastrointestinal: normoactive bowel sounds - Integumentary Integumentary: normal - Neurologic Cranial nerve examination: PERRL, EOMI, VFF, V1/V2/V3 grossly intact, face symmetric, tongue midline, intact gag reflex, intact corneal reflex, normal palatal elevation Speech examination: intact Sensorimotor examination: intact Motor examination - right side: 4/5: biceps, triceps, wrist flexion, wrist extension, manager adobe, hip flexors, knee extensors, dorsiflexion, toe extension (EHL) , plantarflexion Motor examination - left side: 4/5: biceps, triceps, wrist flexion, wrist extension, manager adobe, hip flexors, knee extensors, dorsiflexion, toe extension (EHL) , plantarflexion Detailed sensory examination: intact Reflex and gait examination: intact Reflexes: 1+: ankle, bicep, knee, tricep - Musculoskeletal Musculoskeletal: no pain - Psychiatric Psychiatric: mood/affect appropriate, cooperative Results - Laboratory Findings CBC and BMP: 03/30/18 03:30 03/30/18 03:30 Abnormal Lab Findings: Abnormal Labs 03/30/18 03/30/18 03/30/18 03:26 03:30 03:30 MCV 102.3 H APTT BUN 29 H Glucose 149 H POC Glucose (mg/dL) 140 H Plasma Lactic Acid Amish Urine Protein 03/30/18 03/30/18 03/30/18 03:30 03:30 03:42 MCV APTT 21.0 L BUN Glucose POC Glucose (mg/dL) Plasma Lactic Acid Amish 4.9 H* Urine Protein Trace H Assessment and Plan (1) New onset seizure Current Visit: Yes Status: Acute Code(s): R56.9 - UNSPECIFIED CONVULSIONS SNOMED Code(s): 67379524 (2) Lactic acidosis Current Visit: Yes Status: Acute Code(s): E87.2 - ACIDOSIS SNOMED Code(s) : 33532417 (3) Hypophosphatemia Current Visit: No Status: Acute Code(s): E83.39 - OTHER DISORDERS OF PHOSPHORUS METABOLISM SNOMED Code(s): 6699554 (4) Syncope Current Visit: No Status: Acute Code(s): R55 - SYNCOPE AND COLLAPSE SNOMED Code(s): 628887804 Plan: This patient is a 77-year-old male being evaluated for possible new onset seizure that occurred early this morning at his home. Patient awoke his at 3 AM as he was shaking and moving about in bed in an unusual manner. His was awakened at 3 AM and noticed that he was grinding his teeth and doing some lipsmacking. He bit his tongue and was bleeding from the mouth. She tried to shake and awaken him but he was unresponsive. EMS was immediately called by the and when they had arrived they found the patient be postictal with evidence of biting his tongue as well as urinary incontinence. He became very combative and required restraints and he was transported by EMS to the emergency room at [facility] ER. Patient was seen in the ER by Dr. Izquierdo who found him to be postictal and confused. He was given Ativan and then sent for a computed tomography scan of the brain results of which are noted above. CAT scan was reported negative for any evidence of acute hemorrhage, mass effect, or hydrocephalus. Patient is unable to have MRI of the brain as he has a pacemaker. He was admitted to hospital for further evaluation. He underwent a EEG which was reviewed by Dr. George and is reported to be normal. We have discussed the [employer] driving law with the patient in detail as well as his at bedside. They're both aware that he cannot drive in the [facility] for. To 6 months following this event. We are strongly recommending to start the patient on anticonvulsant therapy today and he is agreeable and we will begin him on Keppra 500 mg twice a day. He is to follow-up in the epilepsy monitoring unit at the [facility] where he can undergo further long-term monitoring to determine the extent of his underlying seizure disorder and events. Patient will be started on Keppra this evening. He may have a Keppra level done in a week and adjusted as necessary. Once again we are recommending Dr. Akbar Encinas to make arrangements for this patient to be evaluated in the epilepsy monitoring unit at the [facility] as soon as possible. Patient was once again reminded of the [place] driving law and is aware of the restriction of no driving for 6 months following this event of possible seizure and unresponsiveness. We will continue close neurological follow-up for the patient during this admission. His overall prognosis at this time remains very guarded. Time with Patient: Greater than 30
[2018-03-30] MEDS: levETIRAcetam 500 MG TAB PO SCH (20:47)
[2018-03-31] MEDS: SODIUM CHLORIDE 0.9% 1,000 ML IV SCH ×2 (05:06→10:34)
[2018-03-31 07:39] LABS: Anion Gap 5 mmol/L; Blood Urea Nitrogen 21 mg/dL (9-20); Calcium 8.6 mg/dL (8.4-10.2); Carbon Dioxide 24 mmol/L (22-30); Chloride 112 mmol/L (98-107); Glucose 94 mg/dL (74-99); Potassium 3.7 mmol/L (3.5-5.1); Sodium 141 mmol/L (137-145)
[2018-03-31] MEDS: levETIRAcetam 500 MG TAB PO SCH (07:53)
[2018-03-31 08:27] VITALS: RESP 18
[2018-03-31] MEDS ORDERED: CHOLECALCIFEROL 1,000 UNIT TAB PO SCH (09:00)
[2018-03-31] MEDS ORDERED: MULTIVITAMINS, THERA 1 EACH TAB PO SCH (09:00)
[2018-03-31 11:38] VITALS: BP 164/78; PULSE 87; TEMP 97
--- NOTE | 2018-03-31 12:05 | P.DS ---
Providers Date of admission: 03/30/18 05:28 Expected date of discharge: 03/31/18 Attending physician: Akbar Encinas Consults: 03/30/18 08:11 Consult Physician Stat Consulting Provider: Leanna Marvin Consult Reason/Comments: seizures Do you want consulting provider notified?: Yes Primary care physician: Akbar Encinas [facility] Course: 77-year-old male was brought to the emergency room after change in mental status status with tongue biting and urinary incontinence. Patient became combative in the emergency room. Patient was evaluated by neurologist. EEG negative. Diagnosis was seizure disorder started on Keppra. Patient will follow-up with family physician for in home monitoring Assessment Seizure disorder Lactic acidosis secondary to seizure disorder Dehydration GERD Osteoarthritis BPH Plan Follow-up with family physician Patient Condition at Discharge: Stable Plan - Discharge Summary Discharge Rx Participant: No New Discharge Prescriptions: New levETIRAcetam [Keppra] 500 mg PO Q12HR 30 Days #60 tab Continue Multivit-Min/FA/Lycopen/Lutein [Centrum Silver Tablet] 1 tab PO DAILY Cholecalciferol [Vitamin D3] 1,000 unit PO DAILY Aspirin 81 mg PO Q4H PRN PRN Reason: Pain Discharge Medication List Multivit-Min/FA/Lycopen/Lutein [Centrum Silver Tablet] 1 tab PO DAILY 09/12/15 [ History] Aspirin 81 mg PO Q4H PRN 03/30/18 [History] Cholecalciferol [Vitamin D3] 1,000 unit PO DAILY 03/30/18 [History] levETIRAcetam [Keppra] 500 mg PO Q12HR 30 Days #60 tab 03/31/18 [Rx] Follow up Appointment(s)/Referral(s): Akbar Encinas MD [Primary Care Provider] - 04/03/18 9:00 am (friday -previously scheduled appointment)
== END 2018-03-31 13:00 | disposition home or self-care (01) | DRG 101 ==
LOC: SUPCPDRO 03:17 → EC 03:17 → 3SCARD 05:28
PROVIDERS: ADMIT Family Medicine; ATTEND Family Medicine
DX: G40.909 Epilepsy, unspecified, not intractable, without status epilepticus (principal); E87.2 Acidosis; E83.39 Other disorders of phosphorus metabolism; E86.0 Dehydration; K21.9 Gastro-esophageal reflux disease without esophagitis; M19.90 Unspecified osteoarthritis, unspecified site; N40.0 Benign prostatic hyperplasia without lower urinary tract symptoms; R32 Unspecified urinary incontinence; Z78.1 Physical restraint status; Z80.51 Family history of malignant neoplasm of kidney; Z80.8 Family history of malignant neoplasm of other organs or systems; Z82.49 Family history of ischemic heart disease and other diseases of the circulatory system; Z86.74 Personal history of sudden cardiac arrest; Z87.891 Personal history of nicotine dependence; Z95.0 Presence of cardiac pacemaker; L40.9 Psoriasis, unspecified; E73.9 Lactose intolerance, unspecified; Z90.79 Acquired absence of other genital organ(s); R45.1 Restlessness and agitation; Z79.82 Long term (current) use of aspirin
CPT/HCPCS: 36415; 70450; 80048; 80053; 80177; 80306; 80320; 81003; 83605; 84100; 84402; 84403; 84484; 85025; 85610; 85730; 93005; 95819; 96360; 96361; 96372; 99285

== ENCOUNTER 2018-09-13 08:35 | Emergency (ER) | payer MEDICARE ==
[2018-09-13 08:53] VITALS: TEMP 97.6
[2018-09-13] MEDS ORDERED: SODIUM CHLORIDE 0.9% 1,000 ML IV STA ×2 (09:14)
[2018-09-13 09:28] LABS: Basophils % (A) 0 %; Eosinophils # (A) 0.1 k/uL (0-0.7); Eosinophils % (A) 1 %; HCT 38.9 % (39.0-53.0); HGB 12.9 gm/dL (13.0-17.5); Lymphocytes # (A) 0.9 k/uL (1.0-4.8); Lymphocytes % (A) 9 %; MCH 33.5 pg (25.0-35.0); MCHC 33.2 g/dL (31.0-37.0); MCV 100.9 fL (80.0-100.0); Mean Platelet Volume 7.5; Monocytes # (A) 0.4 k/uL (0-1.0); Monocytes % (A) 5 %; Neutrophils # (A) 8.1 k/uL (1.3-7.7); Neutrophils % (A) 85 %; Platelet Count 159 k/uL (150-450); RBC 3.86 m/uL (4.30-5.90); RDW 13.2 % (11.5-15.5); WBC 9.6 k/uL (3.8-10.6)
--- NOTE | 2018-09-13 09:34 | ED ---
Seizure HPI - General Chief Complaint: Seizure Stated Complaint: Seizure Time Seen by Provider: 09/13/18 08:49 Source: family, EMS, old records reviewed Mode of arrival: EMS Limitations: altered mental status - History of Present Illness Initial Comments: Patient is a 77-year-old male with a history of seizure disorder and reported epilepsy presents emergency department today after 2 episodes seizure activity,of clenching his teeth and becoming stiff and tremors. He would have postictal episodes of afterward and act confused according to . First episode was at 3:00 in the morning second episode was at 7 AM. Patient arrives to emergency Department after urinating on himself at 8am. He arrived somewhat postictal and was given ativan by EMS. Patient has had this happen before, was previously on Keppra but stated that made him feel ill. He reports he's not been taking Keppra. He reports that any drinking normally. He denies any pain. He reports he had no fall or significant head injury related to this "seizure- like" activity. Patient denies any chest pain shortness of breath. - Related Data Home Medications Medication Instructions Recorded Confirmed Multivit-Min/FA/Lycopen/Lutein 1 tab PO DAILY 09/12/15 09/13/18 [Centrum Silver Tablet] Cholecalciferol [Vitamin D3] 1,000 unit PO DAILY 03/30/18 09/13/18 Phosak 1 pack PO BID 09/13/18 09/13/18 Vitamin B Complex 1 cap PO DAILY 09/13/18 09/13/18 Allergies Allergy/AdvReac Type Severity Reaction Status Date / Time lactose AdvReac Nausea & Verified 09/13/18 09:12 Vomiting & Diarrhea Review of Systems ROS Statement: Those systems with pertinent positive or pertinent negative responses have been documented in the HPI. ROS Other: All systems not noted in ROS Statement are negative. Past Medical History Past Medical History: GERD/Reflux, Osteoarthritis (OA), Prostate Disorder, Seizure Disorder, Skin Disorder, Syncope Additional Past Medical History / Comment(s): Seizures, spouse states pt has had cardiac arrest in past, low phosphorus in past worked up extensively with at several institutions and no cause found/levels have been normal last few month/pt now off phosphorus medication, low testosterone in the past but levels have been normal last few months so pt is off testoterone rx, thought possibly had hypoglycemia, rare ocular migraines, BPH, psoriasis, lactose intolerant. History of Any Multi-Drug Resistant Organisms: None Reported Past Surgical History: Appendectomy, Hernia Repair, Pacemaker, Prostate Surgery Additional Past Surgical History / Comment(s): Prostrate vaporization and TURP, L inguinal hernia repair, deviated septum surgery, pacemaker later removed but still has wires, EGD/colonoscopy. Past Anesthesia/Blood Transfusion Reactions: No Reported Reaction Additional Past Anesthesia/Blood Transfusion Reaction / Comment(s): Pt has never received blood. Type of Cardiac Device: Permanent Pacemaker Device Placement Date:: 1996-since removed/still has wires Past Psychological History: Anxiety Smoking Status: Former smoker Past Alcohol Use History: None Reported Past Drug Use History: None Reported - Past Family History Sister(s) Family Medical History: Thyroid Disorder Additional Family Medical History / Comment(s): Hyperthyroidism Father Family Medical History: Myocardial Infarction (NE) Additional Family Medical History / Comment(s): Father at age 66 or 67yrs of NE Mother Family Medical History: No Reported History Additional Family Medical History / Comment(s): AGE 93 was healthy Brother(s) Family Medical History: Cancer Additional Family Medical History / Comment(s): Older brother had geoblastoma/brain cancer and younger brother with renal cancer/renal failure and is on dialysis. General Exam - General Exam Comments Initial Comments: 77-year-old male. Patient is slightly confused and appearing postictal tired. Limitations: altered mental status General appearance: alert, in no apparent distress Head exam: Present: atraumatic, normocephalic, normal inspection Eye exam: Present: normal appearance, PERRL, EOMI. Absent: scleral icterus, conjunctival injection, periorbital swelling ENT exam: Present: normal exam, mucous membranes moist Neck exam: Present: normal inspection. Absent: tenderness, meningismus, lymphadenopathy Respiratory exam: Present: normal lung sounds bilaterally. Absent: respiratory distress, wheezes, rales, rhonchi, stridor Cardiovascular Exam: Present: regular rate, normal rhythm, normal heart sounds. Absent: systolic murmur, diastolic murmur, rubs, gallop, clicks GI/Abdominal exam: Present: soft, normal bowel sounds. Absent: distended, tenderness, guarding, rebound, rigid Extremities exam: Present: normal inspection, full ROM, normal capillary refill. Absent: tenderness, pedal edema, joint swelling, calf tenderness Back exam: Present: normal inspection, full ROM Neurological exam: Present: alert, oriented X3, CN II-XII intact Expanded Patient oriented to: Present: person, place, time Speech: Present: fluid speech Cranial nerves: EOM's Intact: Normal, Facial Sensation: Normal Cerebellar function: Finger to Nose: Normal Upper motor neuron: Pronator Drift: Normal Sensory exam: Upper Extremity Light Touch: Normal, Lower Extremity Light Touch: Normal Motor strength exam: RUE: 5, LUE: 5, RLE: 5, LLE: 5 Eye Response: (4) open spontaneously Motor Response: (6) obeys commands Verbal Response: (5) oriented [place] Total: 15 Psychiatric exam: Present: normal affect, normal mood Skin exam: Present: warm, dry, intact, normal color. Absent: rash Course Vital Signs 09/13/18 09/13/18 09/13/18 08:48 09:30 10:30 Temperature 97.6 F Pulse Rate 87 60 61 Respiratory 20 20 21 Rate Blood Pressure 109/62 98/53 103/55 O2 Sat by Pulse 86 L 100 99 Oximetry 09/13/18 09/13/18 09/13/18 11:01 12:00 12:30 Temperature Pulse Rate 87 91 86 Respiratory 17 Rate Blood Pressure 107/61 127/54 112/91 O2 Sat by Pulse 97 99 98 Oximetry Medical Decision Making - Medical Decision Making 77-year-old male with a history of seizure disorder presents today after 2 seizures. Patient reports that he's been having these episodes intermittently for a few months. He has been evaluated by pillowcase folder Dr. Garcia at [facility]. He follows with Dr. Xie regularly. Patient was given IV fluids and lab work obtained. He complains of no pain at this time. CT of the brain was completed and negative for any acute process. Chest x-ray is normal. EKG shows no acute changes. Patient's lab work was otherwise unremarkable. He reports he's had history of low phosphorus. Patient's phosphorus level is 2.4 at this time. When I reevaluated the Patient I discussed all the findings with family. Family is very hesitant for him to be discharged home. I discussed the case with Dr. Xie from [facility]. He recommended the Patient be transferred to them for more workup with neurology. Patient case discussed with ER attending physician. Due to the active opacity I did discuss the Patient could be discharged and Started on his antiseizure medication at a lower dose and could possibly follow-up outpatient. Patient's family reports they're still concerned with discharge home at this time. After another discussion with Dr. Xie, he reports to pers e transfer to [facility]. Patient is stable at this time alert and oriented 3. Does not appear to be significantly postictal at this time. Patient will be transferred to [facility] via EMS. - Lab Data Result diagrams: 09/13/18 09:15 09/13/18 09:15 Lab Results 09/13/18 09/13/18 09/13/18 Range/Units 09:15 09:15 09:15 WBC 9.6 (3.8-10.6) k/uL RBC 3.86 L (4.30-5.90) m/uL Hgb 12.9 L (13.0-17.5) gm/dL Hct 38.9 L (39.0-53.0) % MCV 100.9 H (80.0-100.0) fL MCH 33.5 (25.0-35.0) pg MCHC 33.2 (31.0-37.0) g/dL RDW 13.2 (11.5-15.5) % Plt Count 159 (150-450) k/uL Neutrophils % 85 % Lymphocytes % 9 % Monocytes % 5 % Eosinophils % 1 % Basophils % 0 % Neutrophils # 8.1 H (1.3-7.7) k/uL Lymphocytes # 0.9 L (1.0-4.8) k/uL Monocytes # 0.4 (0-1.0) k/uL Eosinophils # 0.1 (0-0.7) k/uL Basophils # 0.0 (0-0.2) k/uL Sodium 137 (137-145) mmol/L Potassium 4.1 (3.5-5.1) mmol/L Chloride 107 (98-107) mmol/L Carbon Dioxide 24 (22-30) mmol/L Anion Gap 6 mmol/L BUN 27 H (9-20) mg/dL Creatinine 0.89 (0.66-1.25) mg/dL Est GFR (CKD-EPI)AfAm >90 (>60 ml/min/1.73 sqM) Est GFR (CKD-EPI)NonAf 82 (>60 ml/min/1.73 sqM) Glucose 111 H (74-99) mg/dL Calcium 8.9 (8.4-10.2) mg/dL Phosphorus 2.4 L (2.5-4.5) mg/dL Magnesium 1.9 (1.6-2.3) mg/dL Total Bilirubin 0.7 (0.2-1.3) mg/dL AST 23 (17-59) U/L ALT 29 (21-72) U/L Alkaline Phosphatase 53 (38-126) U/L Troponin I <0.012 (0.000-0.034) ng/mL Total Protein 5.3 L (6.3-8.2) g/dL Albumin 3.4 L (3.5-5.0) g/dL 09/13/18 10:16 EKG shows sinus rhythm with marked sinus arrhythmia, otherwise normal EKG. Ventricular rate of 77 bpm. NE interval is 188 ms. QRS duration 104. QT QTC 396/448 ms. - Radiology Data Radiology results: report reviewed CT shows no acute intracranial normality. Mild degenerative changes noted. No active intrathoracic disease on chest x-ray. Disposition Clinical Impression: Seizure Disposition: DC/TRNS INTERMEDIATE CARE FAC Condition: Stable Is patient prescribed a controlled substance at d/c from ED?: No Referrals: Akbar Encinas MD [STAFF PHYSICIAN] - 1-2 days Time of Disposition: 14:04 - Out of Hospital Transfer - Req. Specs Out of Hospital Transfer - Requested Specifics: Other [facility] ([facility])
[2018-09-13 09:41] LABS: ALT 29 U/L (21-72); AST 23 U/L (17-59); Albumin 3.4 g/dL (3.5-5.0); Alkaline Phosphatase 53 U/L (38-126); Anion Gap 6 mmol/L; Blood Urea Nitrogen 27 mg/dL (9-20); Calcium 8.9 mg/dL (8.4-10.2); Carbon Dioxide 24 mmol/L (22-30); Chloride 107 mmol/L (98-107); Glucose 111 mg/dL (74-99); Magnesium 1.9 mg/dL (1.6-2.3); Phosphorus 2.4 mg/dL (2.5-4.5); Potassium 4.1 mmol/L (3.5-5.1); Sodium 137 mmol/L (137-145); Total Bilirubin 0.7 mg/dL (0.2-1.3); Total Protein 5.3 g/dL (6.3-8.2)
--- NOTE | 2018-09-13 09:43 | XR ---
EXAMINATION TYPE: XR chest 2V DATE OF EXAM: 09/13/2018 HISTORY: Pain. REFERENCE: Previous study dated 01/05/2017. FINDINGS: There are pacing wire leads overlying the chest. The lungs are clear. Pleural space are clear. The heart is not enlarged. IMPRESSION: NO ACTIVE INTRATHORACIC DISEASE.
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
[2018-09-13 12:42] VITALS: RESP 17
[2018-09-13] MEDS ORDERED: PROPARACAINE 0.5% OPHTH DROPS 15 ML BTL ONE (14:32)
[2018-09-13 15:02] VITALS: BP 115/75; PULSE 82
[2018-09-13 15:17] LABS: Appearance,Urine Clear (Clear); Bilirubin,Urine Negative (Negative); Blood,Urine Negative (Negative); Color,Urine Light Yellow; Glucose,Urine (UA) Negative (Negative); Ketones,Urine Negative (Negative); Leukocyte Esterase,Urine Negative (Negative); Nitrite,Urine Negative (Negative); Protein,Urine Negative (Negative); Specific Gravity,Urine 1.012 (1.001-1.035); Urobilinogen,Urine <2.0 mg/dL (<2.0)
[2018-09-13 15:26] LABS: Amphetamine Screen,Urine Not Detected (NotDetected); Barbiturate Screen,Urine Not Detected (NotDetected); Benzodiazepines Screen,Urine Not Detected (NotDetected); Cocaine Screen,Urine Not Detected (NotDetected); Methadone Screen, Urine Not Detected (NotDetected); Opiate Screen,Urine Not Detected (NotDetected); Oxycodone Screen, Urine Not Detected (NotDetected); Phencyclidine Screen,Urine Not Detected (NotDetected); Tricyclic Antidepressant,Urine Not Detected (NotDetected); Urn Cannabinoid Scrn Not Detected (NotDetected)
== END 2018-09-13 15:07 ==
LOC: EC 08:35
DX: G40.909 Epilepsy, unspecified, not intractable, without status epilepticus (principal); Z91.048 Other nonmedicinal substance allergy status; Z86.74 Personal history of sudden cardiac arrest; Z95.0 Presence of cardiac pacemaker; Z87.891 Personal history of nicotine dependence
CPT/HCPCS: 36415; 70450; 71046; 80053; 80177; 80306; 81003; 83735; 84100; 84484; 85025; 93005; 96360; 96361; 99285

== ENCOUNTER 2021-11-21 15:42 | Emergency (ER) | payer MEDICARE, OTHER ==
[2021-11-21] MEDS ORDERED: SODIUM CHLORIDE 0.9% 500 ML 500 ML IV STA (16:08)
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
[2021-11-21 17:43] VITALS: RESP 18
--- NOTE | 2021-11-21 17:47 | XR ---
EXAMINATION TYPE: XR pelvis AP view DATE OF EXAM: 11/21/2021 COMPARISON: NONE HISTORY: Pain TECHNIQUE: Single view FINDINGS: Pelvic ring is intact. There is acetabular spurring. Proximal femurs are intact. Sacroiliac joints are intact. IMPRESSION: No fracture seen.
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
[2021-11-21 18:17] LABS: Basophils % (A) 0 %; Eosinophils # (A) 0.1 k/uL (0-0.7); Eosinophils % (A) 1 %; HCT 41.2 % (39.0-53.0); HGB 13.8 gm/dL (13.0-17.5); Lymphocytes # (A) 0.8 k/uL (1.0-4.8); Lymphocytes % (A) 13 %; MCH 34.8 pg (25.0-35.0); MCHC 33.5 g/dL (31.0-37.0); MCV 103.9 fL (80.0-100.0); Macrocytosis Slight; Mean Platelet Volume 9.4; Monocytes # (A) 0.3 k/uL (0-1.0); Monocytes % (A) 5 %; Neutrophils # (A) 5.1 k/uL (1.3-7.7); Neutrophils % (A) 79 %; Platelet Count 183 k/uL (150-450); RBC 3.97 m/uL (4.30-5.90); RDW 13.5 % (11.5-15.5); WBC 6.5 k/uL (3.8-10.6)
[2021-11-21 18:22] LABS: Appearance,Urine Clear (Clear); Bilirubin,Urine Negative (Negative); Blood,Urine Negative (Negative); Color,Urine Yellow; Glucose,Urine (UA) Negative (Negative); Ketones,Urine Negative (Negative); Leukocyte Esterase,Urine Negative (Negative); Nitrite,Urine Negative (Negative); PH, Urine 5.5 (5.0-8.0); Protein,Urine Negative (Negative); Specific Gravity,Urine 1.022 (1.001-1.035); Urobilinogen,Urine <2.0 mg/dL (<2.0)
[2021-11-21 18:26] LABS: ALT 19 U/L (4-49); AST 28 U/L (17-59); African American GFR (CKD) >90 (>60 ml/min/1.73 sqM); Albumin 4.2 g/dL (3.5-5.0); Alcohol <10 mg/dL; Alkaline Phosphatase 46 U/L (38-126); Anion Gap 5 mmol/L; Blood Urea Nitrogen 30 mg/dL (9-20); Calcium 9.4 mg/dL (8.4-10.2); Carbon Dioxide 29 mmol/L (22-30); Chloride 106 mmol/L (98-107); Glucose 105 mg/dL (74-99); Non-African American GFR(CKD) 80 (>60 ml/min/1.73 sqM); Potassium 3.7 mmol/L (3.5-5.1); Sodium 140 mmol/L (137-145); Total Bilirubin 0.9 mg/dL (0.2-1.3); Total Protein 6.7 g/dL (6.3-8.2)
[2021-11-21 18:27] LABS: Partial Thromboplastin Time 23.2 sec (22.0-30.0); Prothrombin Time 10.7 sec (9.0-12.0)
[2021-11-21 18:32] LABS: Amphetamine Screen,Urine Not Detected (NotDetected); Barbiturate Screen,Urine Not Detected (NotDetected); Benzodiazepines Screen,Urine Not Detected (NotDetected); Cocaine Screen,Urine Not Detected (NotDetected); Methadone Screen, Urine Not Detected (NotDetected); Opiate Screen,Urine Not Detected (NotDetected); Oxycodone Screen, Urine Not Detected (NotDetected); Phencyclidine Screen,Urine Not Detected (NotDetected); Tricyclic Antidepressant,Urine Not Detected (NotDetected); Urn Cannabinoid Scrn Not Detected (NotDetected)
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
[2021-11-21 20:52] VITALS: BP 178/89; PULSE 58; TEMP 97.6
== END 2021-11-21 20:52 | disposition home or self-care (01) ==
LOC: EC 15:42
DX: S06.0X0A Concussion without loss of consciousness, initial encounter (principal); R40.2412 Glasgow coma scale score 13-15, at arrival to emergency department; Z91.011 Allergy to milk products; V43.52XA Car driver injured in collision with other type car in traffic accident, initial encounter
CPT/HCPCS: 36415; 70450; 70486; 71045; 72125; 72170; 80053; 80306; 80320; 81003; 84484; 85025; 85610; 85730; 86850; 86900; 86901; 96360; 99285

== ENCOUNTER 2023-03-07 06:13 | Inpatient (IN) | payer MEDICARE ==
[2023-03-07] MEDS ORDERED: SODIUM CHLORIDE 0.9% 1,000 ML IV STA (06:30)
[2023-03-07] MEDS ORDERED: MORPHINE SULFATE 4 MG/ML SYRINGE IV STA (06:30)
[2023-03-07] MEDS ORDERED: NITROGLYCERIN SL TABS 0.4 MG TAB SUBLINGUAL PRN (06:31)
[2023-03-07] MEDS ORDERED: ASPIRIN 81 MG PO STA (06:31)
[2023-03-07] MEDS ORDERED: HEPARIN SODIUM 1,000 UN/ML (10ML VL) IV ONE (06:31)
[2023-03-07] MEDS ORDERED: MORPHINE SULFATE 4 MG/ML SYRINGE IV PRN (06:31)
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
[2023-03-07] MEDS ORDERED: HEPARIN SOD,PORK IN 0.45% NACL 25,000 UNIT in 0.45% NACL 1 250ML.BAG IV SCH (06:45)
--- NOTE | 2023-03-07 06:50 | XR ---
EXAM: XR Chest, 1 View CLINICAL HISTORY: ITS.REASON XR Reason: cp TECHNIQUE: Frontal view of the chest. COMPARISON: No relevant prior studies available. FINDINGS: Lungs: Unremarkable. No consolidation. Pleural space: Unremarkable. No pneumothorax. Heart: Unremarkable. No cardiomegaly. Mediastinum: Unremarkable. Bones/joints: Unremarkable. Tubes, lines and devices: Residual CRMD leads visible. IMPRESSION: No acute findings in the chest.
[2023-03-07] MEDS: ATORVASTATIN 80 MG TAB PO SCH (06:52)
[2023-03-07] MEDS ORDERED: SODIUM CHLORIDE 0.9% 1,000 ML IV ONE (07:00)
[2023-03-07] MEDS ORDERED: VERAPAMIL 2.5 MG/ML 2 ML AMP ONE (07:01)
[2023-03-07] MEDS ORDERED: HEPARIN SODIUM 1,000 UN/ML (10ML VL) ONE (07:01)
[2023-03-07] MEDS ORDERED: fentaNYL (PF) 50 MCG/ML 2 ML AMP ONE (07:01)
[2023-03-07] MEDS ORDERED: MIDAZOLAM 2 MG/2 ML VIAL IVP ONE (07:10)
[2023-03-07] MEDS ORDERED: fentaNYL (PF) 50 MCG/ML 2 ML AMP IVP ONE (07:10)
[2023-03-07] MEDS ORDERED: LIDOCAINE 1% INJ 10MG/ML (5 ML VIAL-PF) SQ ONE (07:11)
[2023-03-07 07:13] LABS: ALT 42 U/L (4-49); AST 49 U/L (17-59); African American GFR (CKD) >90 (>60 ml/min/1.73 sqM); Albumin 4.6 g/dL (3.5-5.0); Alkaline Phosphatase 73 U/L (38-126); Anion Gap 12 mmol/L; Blood Urea Nitrogen 27 mg/dL (9-20); Calcium 9.9 mg/dL (8.4-10.2); Carbon Dioxide 28 mmol/L (22-30); Chloride 103 mmol/L (98-107); Glucose 122 mg/dL (74-99); Magnesium 1.9 mg/dL (1.6-2.3); Non-African American GFR(CKD) 81 (>60 ml/min/1.73 sqM); Phosphorus 3.8 mg/dL (2.5-4.5); Potassium 4.2 mmol/L (3.5-5.1); Sodium 143 mmol/L (137-145); Total Bilirubin 0.8 mg/dL (0.2-1.3); Total Protein 7.5 g/dL (6.3-8.2)
[2023-03-07] MEDS ORDERED: VERAPAMIL SYRINGE (5 MG/10 ML) INTRAARTER ONE (07:13)
[2023-03-07] MEDS: HEPARIN SODIUM 1,000 UN/ML (10ML VL) IVP ONE ×2 (07:15→07:30)
[2023-03-07 07:16] LABS: INR 0.9 (<1.2); Partial Thromboplastin Time 23.2 sec (22.0-30.0); Prothrombin Time 9.9 sec (9.0-12.0)
[2023-03-07] MEDS ORDERED: TICAGRELOR 90 MG TAB PO ONE (07:16)
[2023-03-07] MEDS ORDERED: TICAGRELOR 90 MG TAB ONE (07:18)
[2023-03-07 07:21] LABS: NT-Pro-B-Type Natriuretic Pept 815 pg/mL
[2023-03-07] MEDS ORDERED: NITROGLYCERIN 1000MCG/10ML SYRINGE INTRAARTER ONE (07:34)
--- NOTE | 2023-03-07 07:55 | P.CRDCN ---
History of Present Illness History of present illness: HISTORY OF PRESENTING ILLNESS This is a pleasant 82-year-old with past medical history significant for hypertension as well as previous pacemaker that was removed apparently after electrolytes were improved as well as remote tobacco abuse. Patient presented with chest pain that started at 3 AM. He states he has never had pain similar to this in the past. He admits to associated shortness breath. He presented to the ER and was found to have diffuse anterolateral ST elevations as well as inferior ST elevations which did improve after aspirin and heparin. Denies any family history of or coronary artery disease. He did have a pacemaker placed previously however the generator was taken out as he did not need this anymore. REVIEW OF SYSTEMS At the time of my exam: CONSTITUTIONAL: Denies fever or chills. CARDIOVASCULAR: +chest pain, +shortness of breath, no orthopnea, PND or pa lpitations. RESPIRATORY: Denies cough. GASTROINTESTINAL: Denies abdominal pain, diarrhea, constipation, nausea or vomiting. MUSCULOSKELETAL: Denies myalgias. NEUROLOGIC: Denies numbness, tingling or weakness. ENDOCRINE: Denies fatigue, weight change, polydipsia or polyurina. GENITOURINARY: Denies burning, hematuria or urgency with micturation. HEMATOLOGIC: Denies history of anemia or bleeding. PHYSICAL EXAMINATION Vital signs reviewed. CONSTITUTIONAL: No apparent distress. HEENT: Head is normocephalic. Pupils are equal, round. Sclerae anicteric. Mucous membranes of the mouth are moist. No JVD. No carotid bruit. CHEST EXAMINATION: Lungs are clear to auscultation. No chest wall tenderness is noted on palpation or with deep breathing. HEART EXAMINATION: Regular rate and rhythm. S1, S2 heard. No murmurs, gallops or rub. ABDOMEN: Soft, nontender. Positive bowel sounds. EXTREMITIES: 2+ peripheral pulses, no lower extremity edema and no calf tenderness. NEUROLOGIC EXAMINATION: Patient is awake, alert and oriented x3. ASSESSMENT 1. Anterolateral STEMI with inferior involvement likely wraparound LAD 2. Hypertension 3. Previous history of permanent pacemaker status post generator removal PLAN Patient with anterolateral ST elevations involving inferior leads as well likely related to wraparound LAD. ST elevations have somewhat improved after aspirin and heparin. Discussed emergent left heart catheterization and patient agreeable. Aspirin, heparin, check 2-D echo. Further recommendations to follow. Past Medical History Past Medical History: GERD/Reflux, Osteoarthritis (OA), Prostate Disorder, Seizure Disorder, Skin Disorder, Syncope Additional Past Medical History / Comment(s): Seizures, spouse states pt has had cardiac arrest in past, low phosphorus in past worked up extensively with at several institutions and no cause found/levels have been normal last few month/pt now off phosphorus medication, low testosterone in the past but levels have been normal last few months so pt is off testoterone rx, thought possibly had hypoglycemia, rare ocular migraines, BPH, psoriasis, lactose intolerant. History of Any Multi-Drug Resistant Organisms: None Reported Past Surgical History: Appendectomy, Hernia Repair, Pacemaker, Prostate Surgery Additional Past Surgical History / Comment(s): Prostrate vaporization and TURP, L inguinal hernia repair, deviated septum surgery, pacemaker later removed but still has wires, EGD/colonoscopy. Past Anesthesia/Blood Transfusion Reactions: No Reported Reaction Additional Past Anesthesia/Blood Transfusion Reaction / Comment(s): Pt has never received blood. Type of Cardiac Device: Permanent Pacemaker Device Placement Date:: 1996-since removed/still has wires Past Psychological History: Anxiety Past Alcohol Use History: None Reported Past Drug Use History: None Reported - Past Family History Sister(s) Family Medical History: Thyroid Disorder Additional Family Medical History / Comment(s): Hyperthyroidism Father Family Medical History: Myocardial Infarction ([place]) Additional Family Medical History / Comment(s): Father at age 66 or 67yrs of [place] Mother Family Medical History: No Reported History Additional Family Medical History / Comment(s): AGE 93 was healthy Brother(s) Family Medical History: Cancer Additional Family Medical History / Comment(s): Older brother had geoblastoma/brain cancer and younger brother with renal cancer/renal failure and is on dialysis. Medications and Allergies Home Medications Medication Instructions Recorded Confirmed Type Aspirin EC [Ecotrin Low Dose] 81 mg PO HS 03/07/23 03/07/23 History NIFEdipine XL [Procardia XL] 60 mg PO DAILY 03/07/23 03/07/23 History carvediloL [Coreg] 3.125 mg PO BID 03/07/23 03/07/23 History Allergies Allergy/AdvReac Type Severity Reaction Status Date / Time lactose AdvReac Nausea & Verified 03/07/23 06:43 Vomiting & Diarrhea Physical Exam Vitals: Vital Signs Temp Pulse Resp BP Pulse Ox 03/07/23 06:17 97.5 F L 71 16 168/97 96 Intake and Output 03/06/23 03/07/23 03/07/23 22:59 06:59 14:59 Other: Weight 74.843 kg Results Current Medications Generic Name Dose Route Start Last Admin Trade Name Freq PRN Reason Stop Dose Admin Aspirin 325 mg 03/08/23 09:00 Aspirin 325 Mg Tab PO DAILY BETSY Atorvastatin Calcium 80 mg 03/07/23 09:00 03/07/23 06:52 Atorvastatin 80 Mg Tab PO 80 mg DAILY BETSY Administration Sodium Chloride 1,000 mls @ 130 mls/hr 03/07/23 06:30 03/07/23 06:42 Saline 0.9% IV 03/07/23 14:11 130 mls/hr .[id number] STA Administration Heparin Sodium/Sodium Chloride 250 mls @ 8.981 mls/hr 03/07/23 06:45 03/07/23 06:46 25,000 unit/ Sodium Chloride IV 12 units/kg/hr .Q24H BETSY 8.981 mls/hr Administration Protocol 12 UNITS/KG/HR Metoprolol Tartrate 25 mg 03/07/23 09:00 Metoprolol Tartrate 25 Mg Tab PO BID BETSY Morphine Sulfate 4 mg 03/07/23 06:31 Morphine Sulfate 4 Mg/Ml Syringe IV Q4HR PRN Chest Pain Nitroglycerin 0.4 mg 03/07/23 06:31 Nitroglycerin Sl Tabs 0.4 Mg Tab SUBLINGUAL Q5M PRN Chest Pain Intake and Output 03/06/23 03/07/23 03/07/23 22:59 06:59 14:59 Other: Weight 74.843 kg
[2023-03-07] MEDS ORDERED: IOPAMIDOL-370 200ML BTL INJ ONE (07:57)
--- NOTE | 2023-03-07 08:01 | P.PRCINT ---
Percutaneous Coronary Int. - Percutaneous Coronary Intervention Percutaneous Coronary Intervention: PROCEDURES PERFORMED: Bilateral coronary angiography, ultrasound guided arterial access, PCI left main into LAD with a 3.5 x 28mm Xience MARVIN, post dilated with a 4.5 NC balloon left main and proximal LAD, intravascular ultrasound INDICATION: Anterolateral STEMI CONSENT:I have discussed the risks, benefits and alternative therapies for the above-mentioned procedure and for both sedation/analgesia as well as necessary blood product administration, if indicated, as they pertain to this patient. The patient has indicated understanding and acceptance of the risks and procedures discussed. PROCEDURE: After the risks, benefits and alternatives of the above mentioned procedure explained in detail with the patient, informed consent was obtained. Patient was taken to the catheterization lab and prepped and draped in usual fashion. Ultrasound guidance was used to assess for arterial access. 1% lidocaine was used to anesthetize the right radial artery. A 6-Iranian sheath was placed in the right radial artery using modified Seldinger technique and ultrasound guidance. Left coronary angiography was performed with a 5-Iranian JL 3.5 catheter and right coronary angiography was performed with a 6-Iranian AR2 catheter in various views. The decision was made to perform PCI of the LAD. Heparin was given for ACT greater than 250. A 6-Iranian CLS 3.5 guide was used to engage left main. A 0.014 BMW wire was advanced of this LAD. Predilation was performed with a 2.5 balloon and then a 3.25 noncompliant balloon. Intravascular ultrasound showed extension into the left main and therefore decision made to stent into the left main. PCI was performed with a 3.5 x 28 mm Xience MARVIN into the left main and LAD. The proximal LAD was postdilated gently with a 4.5 noncompliant balloon up to 10 mm and then the left main was postdilated with a 4.5 noncompliant balloon. Final angiograms were performed. Repeat intravascular ultrasound showed diffuse disease distally however well-expanded stent with left main 4.5 mm expansion. The right radial sheath was removed and a TR band was placed with hemostasis achieved. The patient tolerated the procedure well. Patient was transported back to the post catheterization holding area in stable condition. Conscious Sedation: Patient was monitored under the direct supervision of myself for conscious sedation using Versed and fentanyl for a total duration of 43 m inutes HEMODYNAMICS: Aorta: 125/78 SELECTIVE CORONARY ARTERIOGRAPHY: LEFT MAIN: The left main is a large caliber vessel which bifurcates into the LAD and circumflex. There is no significant stenosis. LEFT ANTERIOR DESCENDING CORONARY ARTERY: LAD is a large caliber vessel which wraps around to the apex. There is an ostial LAD 95% stenosis. There is LUZ MARINA 2 flow. Diagonal 1 is small to moderate caliber with a ostial 60% stenosis and mid diagonal 70% stenosis. The remainder of the LAD has mild diffuse 10-30% stenosis. LEFT CIRCUMFLEX CORONARY ARTERY: Left circumflex is a moderate to large caliber vessel with proximal 30-40% stenosis and OM1 has a proximal 30% stenosis. RIGHT CORONARY ARTERY: The right coronary artery is a large caliber vessel which gives off a PDA and PLV branch and is the dominant vessel. There is a proximal RCA 50% stenosis and otherwise mild luminal irregularities FINAL IMPRESSION: 1. Coronary artery disease as described above including 95% ostial LAD, d iagonal 70% stenosis, circumflex 30-40%, proximal RCA 50% stenosis 2. S/p PCI left main into LAD with a 3.5 x 28mm Xience MARVIN, post dilated with a 4.5 NC balloon left main and proximal LAD PLAN: 1. Aggressive risk factor modification per most recent ACC/AHA guidelines. 2. Continue dual antiplatelets with aspirin and Brillinta for 12 months
[2023-03-07] MEDS ORDERED: ZOLPIDEM 5 MG TAB PO PRN (08:17)
[2023-03-07] MEDS ORDERED: RX INFO: IV CONTRAST WAS GIVEN 1 EACH MISC MISCELLANE PRN (08:17)
[2023-03-07] MEDS ORDERED: MAG HYDROX/AL HYDROX/SIMETH 30 ML CUP PO PRN (08:17)
[2023-03-07] MEDS ORDERED: ATROPINE SULFATE 0.1 MG/ML 10ML SYRINGE IV PRN (08:17)
[2023-03-07 08:19] LABS: Glucose,Whole Blood 106 mg/dL (70-110)
[2023-03-07 08:25] LABS: Basophils % (A) 0 %; Eosinophils # (A) 0.1 k/uL (0-0.7); Eosinophils % (A) 1 %; HCT 51.1 % (39.0-53.0); HGB 16.2 gm/dL (13.0-17.5); Lymphocytes # (A) 1.6 k/uL (1.0-4.8); Lymphocytes % (A) 22 %; MCHC 31.7 g/dL (31.0-37.0); MCV 103.9 fL (80.0-100.0); Macrocytosis Slight; Monocytes # (A) 0.4 k/uL (0-1.0); Monocytes % (A) 5 %; Neutrophils # (A) 5.2 k/uL (1.3-7.7); Neutrophils % (A) 70 %; Platelet Count 143 k/uL (150-450); RBC 4.92 m/uL (4.30-5.90); RDW 13.6 % (11.5-15.5); WBC 7.4 k/uL (3.8-10.6)
[2023-03-07] MEDS ORDERED: SODIUM CHLORIDE 0.9% 1,000 ML in EMPTY BAG 1 BAG IV SCH (08:30)
[2023-03-07] MEDS: METOPROLOL TARTRATE 25 MG TAB PO SCH ×3 (10:12→20:43)
[2023-03-07 13:29] VITALS: BMI 21.2
--- NOTE | 2023-03-07 14:05 | HP ---
HISTORY AND PHYSICAL CHIEF COMPLAINT: Chest pain. HISTORY OF PRESENT ILLNESS: This is an 82-year-old gentleman with a past medical history of multiple medical problems including seizure disorder, DJD, was admitted to [facility] with complaints of chest pain. The patient underwent cardiac catheterization and as well as stenting of the LAD. The patient also had 70% diagonal stenosis and 30% to 40% circumflex, and proximal RCA 50% stenosis. The patient is being closely monitored in ICU. There is no history of any fever, rigors, or chills at this time. PAST MEDICAL HISTORY: Reviewed include seizure disorder, DJD. Rest of the history and rest of the chart is also reviewed. HOME MEDICATIONS: Reviewed which include Coreg. Dose and rest of medications reviewed. ALLERGIES: Lactose. FAMILY HISTORY: History of myocardial infarction. SOCIAL HISTORY: No history of smoking or alcohol. REVIEW OF SYSTEMS: Fourteen-point review is negative except as mentioned earlier. PHYSICAL EXAMINATION: VITAL SIGNS: Pulse is 65, blood pressure is 150/85, respirations 20. HEENT: Conjunctivae normal. NECK: No JVD. CARDIOVASCULAR: S1, S2. RESPIRATIONS: Breath sounds diminished at the bases. ABDOMEN: Soft, nontender. LEGS: No edema. NERVOUS SYSTEM: No focal deficits. SKIN: No ulcer, rash, or bleeding. JOINTS: No active deforming arthropathy. LABORATORY DATA: MCV 103.9. Rest of the labs are noted. Troponin 1.200. ASSESSMENT: 1. Acute lys-NP-hehhpvu-elevation myocardial infarction, status post cardiac catheterization and LAD stenting. 2. Degenerative joint disease. 3. Seizure disorder. 4. History of syncope. 5. History of appendectomy. RECOMMENDATIONS AND DISCUSSION: This is an 82-year-old gentleman, who presented with multiple complex medical issues, we will monitor the patient closely. Continue the current medications. Continue with dual antiplatelet treatment, DVT prophylaxis. Closely follow with Cardiology. Resume the home medications. Repeat labs. We will follow the patient closely with you. Recommend close followup with primary physician in the outpatient setting. See orders for further details. MMODL / IJN: [id number] /
[2023-03-07] MEDS: TICAGRELOR 90 MG TAB PO SCH (20:49)
[2023-03-07] MEDS: ASPIRIN 81 MG PO SCH (20:50)
[2023-03-08 05:15] LABS: Basophils % (A) 0 %; Eosinophils # (A) 0.1 k/uL (0-0.7); Eosinophils % (A) 1 %; HCT 41.6 % (39.0-53.0); HGB 13.6 gm/dL (13.0-17.5); Lymphocytes # (A) 1.7 k/uL (1.0-4.8); Lymphocytes % (A) 18 %; MCHC 32.7 g/dL (31.0-37.0); MCV 104.1 fL (80.0-100.0); Macrocytosis Slight; Mean Platelet Volume 9.4; Monocytes # (A) 0.6 k/uL (0-1.0); Monocytes % (A) 6 %; Neutrophils # (A) 6.8 k/uL (1.3-7.7); Neutrophils % (A) 73 %; Platelet Count 142 k/uL (150-450); RDW 13.7 % (11.5-15.5); WBC 9.4 k/uL (3.8-10.6)
[2023-03-08 05:27] LABS: African American GFR (CKD) >90 (>60 ml/min/1.73 sqM); Anion Gap 6 mmol/L; Blood Urea Nitrogen 24 mg/dL (9-20); Calcium 8.9 mg/dL (8.4-10.2); Carbon Dioxide 30 mmol/L (22-30); Chloride 101 mmol/L (98-107); Glucose 107 mg/dL (74-99); Non-African American GFR(CKD) 84 (>60 ml/min/1.73 sqM); Sodium 137 mmol/L (137-145)
[2023-03-08] MEDS: METOPROLOL TARTRATE 25 MG TAB PO SCH ×2 (08:35→19:33)
[2023-03-08] MEDS: TICAGRELOR 90 MG TAB PO SCH ×2 (08:35→19:33)
[2023-03-08] MEDS: ATORVASTATIN 80 MG TAB PO SCH (08:35)
[2023-03-08] MEDS ORDERED: ASPIRIN 325 MG TAB PO SCH (09:00)
[2023-03-08 10:05] LABS: Chol/HDL Ratio 2.62 Ratio
[2023-03-08 10:06] LABS: Appearance,Urine Clear (Clear); Bilirubin,Urine Negative (Negative); Blood,Urine Negative (Negative); Color,Urine Colorless; Glucose,Urine (UA) Negative (Negative); Ketones,Urine Negative (Negative); Leukocyte Esterase,Urine Negative (Negative); Nitrite,Urine Negative (Negative); Protein,Urine Negative (Negative); Specific Gravity,Urine 1.011 (1.001-1.035); Urobilinogen,Urine <2.0 mg/dL (<2.0)
--- NOTE | 2023-03-08 10:50 | P.PN ---
Subjective HISTORY OF PRESENT ILLNESS: This is a pleasant 82-year-old with past medical history significant for hypertension as well as previous pacemaker that was removed apparently after electrolytes were improved as well as remote tobacco abuse. Patient presented with chest pain that started at 3 AM. He states he has never had pain similar to this in the past. He admits to associated shortness breath. He presented to the ER and was found to have diffuse anterolateral ST elevations as well as inferior ST elevations which did improve after aspirin and heparin. Denies any family history of or coronary artery disease. He did have a pacemaker placed previously however the generator was taken out as he did not need this anymore. 03/08/2023 Patient is status post cardiac catheterization yesterday with Dr. Jovel. Patient was found to have 90% ostial LAD, 70% stenosis of diagonal, circumflex 30-40% lesion, and proximal RCA 50% lesion. Patient underwent PCI of the left main into the LAD. Patient examined this morning in the intensive care unit. Patient denies any chest pain or pressure. He denies any shortness of breath. Telemetry reveals sinus mechanism. Patient did have some bradycardia overnight while sleeping. He denies any dizziness or lightheadedness. PHYSICAL EXAM: VITAL SIGNS: Reviewed. GENERAL: Well-developed in no acute distress. NECK: Supple. No JVD or thyromegaly LUNGS: Respirations even and unlabored. Lungs essentially clear to auscultation bilaterally. HEART: Regular rate and rhythm. S1 and S2 heard. EXTREMITIES: Normal range of motion. No clubbing or cyanosis. Peripheral pulses intact. No lower extremity edema ASSESSMENT: Acute STEMI, status post stenting of left main and LAD Coronary artery disease Hypertension Previous history of pacemaker implantation, status post generator removal Asymptomatic bradycardia PLAN: Continue dual antiplatelet therapy with aspirin and brilinta Continue high intensity statin Continue current dose of metoprolol. Patient is asymptomatic with his jacqueline ycardia overnight. If he becomes symptomatic, will decrease dosage 2-D echo is currently pending. Await results Patient may be transferred to the cardiac stepdown unit today Further recommendations pending patient's course Nurse practitioner note has been reviewed by physician. Signing provider agrees with the documented findings, assessment, and plan of care. Objective - Vital Signs Vital signs: Vital Signs Temp 97.5 F L 03/08/23 08:00 Pulse 62 03/08/23 08:00 Resp 18 03/08/23 08:00 BP 113/84 03/08/23 08:00 Pulse Ox 94 L 03/08/23 08:12 FiO2 Intake & Output 03/07/23 03/08/23 03/08/23 18:59 06:59 18:59 Intake Total 1440 30 250 Output Total 1000 852 250 Balance 440 -822 0 Weight 72.1 kg 77.8 kg Intake: IV 960 30 10 Invasive Line 1 30 Invasive Line 2 30 30 10 Sodium Chloride 0.9% 1, 800 000 ml In Empty Bag 1 bag @ 80 mls/hr IV .[id number] [facility] Rx#:[id number] Oral 480 240 Output: Urine 1000 675 250 Post Void Residual 177 Other: Voiding Method Urinal External Catheter External Catheter - Labs CBC & Chem 7: 03/08/23 04:26 03/08/23 04:26 Labs: Abnormal Lab Results - Last 24 Hours (Table) 03/07/23 03/08/23 03/08/23 Range/Units 09:34 04:26 04:26 RBC 4.00 L (4.30-5.90) m/uL MCV 104.1 H (80.0-100.0) fL Plt Count 142 L (150-450) k/uL BUN 24 H (9-20) mg/dL Glucose 107 H (74-99) mg/dL Troponin I 1.200 H* (0.000-0.034) ng/mL
[2023-03-08] MEDS: TAMSULOSIN 0.4 MG CAP.ER.24H PO SCH (12:13)
[2023-03-08] MEDS ORDERED: QUEtiapine 25 MG TAB PO PRN (12:20)
--- NOTE | 2023-03-08 13:10 | CA ---
Transthoracic Echo Report Name: Wilson Lozano Age: 82 Gender: M : 1940 Exam Date: 03/08/2023 09:11 Exam Location: [facility] Ht (in): 74 Wt (lb): 158 Ordering Physician: James Jovel DO ([email or web address]) Attending/Referring Phys: [employer] Leena Beatty RDCS Procedure CPT: Indications: lvef Cardiac Hx: Technical Quality: Fair Contrast 1: Total Dose (mL): Contrast 2: Total Dose (mL): MEASUREMENTS (Male / Female) Normal Values 2D ECHO LV Diastolic Diameter PLAX 5.2 cm 4.2 - 5.9 / 3.9 - 5.3 cm LV Systolic Diameter PLAX 3.4 cm IVS Diastolic Thickness 0.9 cm 0.6 - 1.0 / 0.6 - 0.9 cm LVPW Diastolic Thickness 1.1 cm 0.6 - 1.0 / 0.6 - 0.9 cm LV Relative Wall Thickness 0.4 RV Internal Dim ED PLAX 2.7 cm LA Systolic Diameter LX 3.4 cm 3.0 - 4.0 / 2.7 - 3.8 cm LV Diastolic Volume MOD 4C 91.4 cm??? LV Systolic Volume MOD 4C 37.4 cm??? LV Ejection Fraction MOD 4C 59.1 % LV Cardiac Index MOD 4C 1600.9 cm???/min???m??? LV Diastolic Length 4C 9.0 cm LV Systolic Length 4C 7.8 cm LV Diastolic Volume MOD 2C 61.2 cm??? LV Systolic Volume MOD 2C 31.8 cm??? LV Ejection Fraction MOD 2C 48.1 % LV Cardiac Index MOD 2C 871.9 cm???/min???m??? LV Diastolic Length 2C 7.9 cm LV Systolic Length 2C 6.7 cm LA Volume 39.7 cm??? 18 - 58 / 22 - 52 cm??? LA Volume Index 20.6 cm???/m??? 16 - 28 cm???/m??? M-MODE Aortic Root Diameter MM 3.8 cm MV E Point Septal Separation 0.4 cm AV Cusp Separation MM 2.1 cm DOPPLER AV Peak Velocity 109.2 cm/s AV Peak Gradient 4.8 mmHg MV Area PHT 2.4 cm??? Mitral E Point Velocity 79.3 cm/s Mitral A Point Velocity 92.8 cm/s Mitral E to A Ratio 0.9 MV Deceleration Time 313.8 ms MV E' Velocity 4.9 cm/s Mitral E to MV E' Ratio 16.1 TR Peak Velocity 263.3 cm/s TR Peak Gradient 27.7 mmHg Right Ventricular Systolic Press 32.7 mmHg FINDINGS Left Ventricle Left ventricular ejection fraction is estimated at 40-45 %. Left ventricular cavity size normal. Apical hypokinesis of septum ,inferior , anterior and lateral lala Right Ventricle Normal right ventricular size. Right ventricular systolic pressure within normal limits. Right Atrium Normal right atrial size. Left Atrium Normal left atrial size. Mitral Valve Structurally normal mitral valve. Mitral annular calcification. Mild mitral regurgitation. Aortic Valve Aortic valve sclerosis. No aortic regurgitation. No aortic stenosis. Tricuspid Valve Structurally normal tricuspid valve. Mild tricuspid regurgitation. Pulmonic Valve Pulmonic valve not well visualized. Pericardium No pericardial effusion. Aorta Mild aortic dilatation at the level of the sinuses of valsalva 38 mm CONCLUSIONS Mildly impaired LV function with EF 40-45% with mid ventricle and apical hypokinesia Previewed by: Dr. Roney Medley MD (Electronically Signed) Final Date: 08 March 2023 13:09
[2023-03-08] MEDS: FOLIC ACID 1 MG TAB PO SCH (13:35)
[2023-03-08] MEDS: THIAMINE 100 MG TAB PO SCH (13:35)
[2023-03-08] MEDS: MULTIVITAMINS, THERA 1 EACH TAB PO SCH (13:35)
--- NOTE | 2023-03-08 14:07 | CT ---
EXAMINATION TYPE: CT brain wo con DATE OF EXAM: 03/08/2023 COMPARISON: 11/21/2021 HISTORY: AMS CT DLP: 1189.4 mGycm Automated exposure control for dose reduction was used. FINDINGS: The ventricles, basal cisterns and sulci over convexities within normal limits and there is no mass e ffect or shift of midline structures. 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 There is a small stable remote white matter infarct adjacent to the frontal horn the righ t lateral ventricle There is a small remote lacunar infarct in the left caudate nucleus. There is no acute intra or extra-axial hemorrhage. The posterior fossa including the brainstem, fourth ventricle and cerebellar pontine angles appear no rmal. The intraorbital contents appear normal and symmetric. Visualized paranasal sinuses and mastoid air cells are well aerated IMPRESSION: 1. NO ACUTE BLEED OR MASS EFFECT. 2. STABLE REMOTE INFARCTS DESCRIBED ABOVE.
--- NOTE | 2023-03-08 14:17 | XR ---
EXAMINATION TYPE: XR chest 2V DATE OF EXAM: 03/08/2023 COMPARISON: 03/07/2023 HISTORY: Dyspnea TECHNIQUE: Frontal and lateral views of the chest are obtained. FINDING: The lungs are clear. There is no pleural effusion or pneumothorax. Heart size normal. There is a 2-lead cardiac pacemaker disconnected from the generator. The osseous structures and soft tissues unremarkable. IMPRESSION: No acute cardiopulmonary disease.
--- NOTE | 2023-03-08 15:04 | PN ---
PROGRESS NOTE DATE OF SERVICE: 03/08/2023 SUBJECTIVE: This is an 82-year-old gentleman, who was admitted after acute non-ST segment elevation myocardial infarction, underwent cardiac catheterization with LAD stenting. The patient is mildly confused at this time. No chest pain or palpitation. PAST MEDICAL HISTORY: Reviewed. REVIEW OF SYSTEMS: 14-point review of systems is negative except as mentioned earlier. CURRENT MEDICATIONS: Reviewed, include Lopressor. Rest of the medications noted. PHYSICAL EXAMINATION: VITAL SIGNS: Pulse is 62, blood pressure is 130/80, respirations 18. HEENT: Conjunctivae normal. NECK: No jugular venous distention. CARDIOVASCULAR: S1, S2. RESPIRATIONS: Breath sounds diminished at the bases. ABDOMEN: Soft, nontender. LEGS: No edema. NERVOUS SYSTEM: Nonfocal. LABORATORY DATA: Reviewed. ASSESSMENT: 1. Acute ufh-IH-ayltdlm elevation myocardial infarction, status post cardiac catheterization with LAD stent. 2. Acute delirium. 3. Degenerative joint disease. 4. Seizure disorder. 5. History of syncope. 6. History of appendectomy. 7. FULL CODE. RECOMMENDATIONS: Recommend to continue current medications, supplement vitamins, Seroquel p.r.n., and CT scan of the brain and chest x-ray. UA has already been done. Prognosis is guarded. I had a detailed discussion with the family at the bedside and further recommendations to follow. Prognosis stable currently. Family understands. MMODL / IJN: [id number] /
[2023-03-08] MEDS: ASPIRIN 81 MG PO SCH (19:33)
[2023-03-09] MEDS: ATORVASTATIN 80 MG TAB PO SCH (09:15)
[2023-03-09] MEDS: METOPROLOL TARTRATE 25 MG TAB PO SCH ×2 (09:15→20:05)
[2023-03-09] MEDS: TICAGRELOR 90 MG TAB PO SCH ×2 (09:15→20:05)
[2023-03-09] MEDS: TAMSULOSIN 0.4 MG CAP.ER.24H PO SCH (09:15)
[2023-03-09 10:06] LABS: Basophils % (A) 0 %; Eosinophils # (A) 0.1 k/uL (0-0.7); Eosinophils % (A) 1 %; HCT 42.8 % (39.0-53.0); Lymphocytes # (A) 1.3 k/uL (1.0-4.8); Lymphocytes % (A) 16 %; MCH 33.4 pg (25.0-35.0); MCHC 32.7 g/dL (31.0-37.0); Macrocytosis Slight; Mean Platelet Volume 9.2; Monocytes # (A) 0.3 k/uL (0-1.0); Monocytes % (A) 4 %; Neutrophils # (A) 6.5 k/uL (1.3-7.7); Neutrophils % (A) 78 %; Platelet Count 151 k/uL (150-450); RDW 13.6 % (11.5-15.5); WBC 8.4 k/uL (3.8-10.6)
[2023-03-09 10:17] LABS: ALT 35 U/L (4-49); AST 70 U/L (17-59); African American GFR (CKD) >90 (>60 ml/min/1.73 sqM); Albumin 3.7 g/dL (3.5-5.0); Alkaline Phosphatase 54 U/L (38-126); Anion Gap 10 mmol/L; Blood Urea Nitrogen 24 mg/dL (9-20); Calcium 9.1 mg/dL (8.4-10.2); Carbon Dioxide 25 mmol/L (22-30); Chloride 102 mmol/L (98-107); Glucose 151 mg/dL (74-99); Non-African American GFR(CKD) 79 (>60 ml/min/1.73 sqM); Potassium 3.7 mmol/L (3.5-5.1); Sodium 137 mmol/L (137-145); Total Protein 6.1 g/dL (6.3-8.2)
--- NOTE | 2023-03-09 11:35 | P.PN ---
Subjective HISTORY OF PRESENT ILLNESS: This is a pleasant 82-year-old with past medical history significant for hypertension as well as previous pacemaker that was removed apparently after electrolytes were improved as well as remote tobacco abuse. Patient presented with chest pain that started at 3 AM. He states he has never had pain similar to this in the past. He admits to associated shortness breath. He presented to the ER and was found to have diffuse anterolateral ST elevations as well as inferior ST elevations which did improve after aspirin and heparin. Denies any family history of or coronary artery disease. He did have a pacemaker placed previously however the generator was taken out as he did not need this anymore. 03/08/2023 Patient is status post cardiac catheterization yesterday with Dr. Jovel. Patient was found to have 90% ostial LAD, 70% stenosis of diagonal, circumflex 30-40% lesion, and proximal RCA 50% lesion. Patient underwent PCI of the left main into the LAD. Patient examined this morning in the intensive care unit. Patient denies any chest pain or pressure. He denies any shortness of breath. Telemetry reveals sinus mechanism. Patient did have some bradycardia overnight while sleeping. He denies any dizziness or lightheadedness. 03/09/2023 Patient examined this morning at the bedside. Patient's daughter is present. Patient denies any chest pain or pressure. He denies any shortness of breath. Patient had some confusion yesterday and underwent CT of the brain which was negative for an acute process. Echocardiogram completed revealing ejection fr action 40-45% with mid ventricle and apical hypokinesis, mild MR, mild TR Vital signs this morning are stable. Blood pressure slightly elevated this morning. However previous readings have been well controlled. PHYSICAL EXAM: VITAL SIGNS: Reviewed. GENERAL: Well-developed in no acute distress. NECK: Supple. No JVD or thyromegaly LUNGS: Respirations even and unlabored. Lungs essentially clear to auscultation bilaterally. HEART: Regular rate and rhythm. S1 and S2 heard. EXTREMITIES: Normal range of motion. No clubbing or cyanosis. Peripheral pulses intact. 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 Patient is asymptomatic with his bradycardia. If he becomes symptomatic, will decrease dosage Patient with isolated reading of high blood pressure this morning. Add lisinopril 5 mg daily secondary to cardiomyopathy. We'll continue to monitor blood pressure and make adjustments if needed. Continue to monitor patient for an additional 24 hours. Possible discharge home tomorrow. Further recommendations pending patient's course Nurse practitioner note has been reviewed by physician. Signing provider agrees with the documented findings, assessment, and plan of care. Objective - Vital Signs Vital signs: Vital Signs Temp 98.9 F 03/09/23 08:00 Pulse 90 03/09/23 08:00 Resp 16 03/09/23 08:00 BP 164/80 03/09/23 08:00 Pulse Ox 95 03/09/23 08:00 FiO2 Intake & Output 03/08/23 03/09/23 03/09/23 18:59 06:59 18:59 Intake Total 490 540 350 Output Total 250 0 Balance 240 540 350 Intake: IV 10 Invasive Line 2 10 Oral 480 540 350 Output: Gastric Drainage 0 Urine 250 Stool 0 0 Urine/Stool Mix 0 Emesis 0 Oral Regurgitation 0 Other: Voiding Method Toilet Toilet Toilet Urinal Urinal Urinal # Voids 0 1 1 # Bowel Movements 0 - Labs CBC & Chem 7: 03/09/23 09:25 03/09/23 09:25 Labs: Abnormal Lab Results - Last 24 Hours (Table) 03/09/23 03/09/23 Range/Units 09:25 09:25 RBC 4.20 L (4.30-5.90) m/uL MCV 102.0 H (80.0-100.0) fL BUN 24 H (9-20) mg/dL Glucose 151 H (74-99) mg/dL AST 70 H (17-59) U/L Total Protein 6.1 L (6.3-8.2) g/dL
[2023-03-09] MEDS: lisinopriL 5 MG TAB PO SCH (12:11)
[2023-03-09] MEDS: MULTIVITAMINS, THERA 1 EACH TAB PO SCH (12:12)
[2023-03-09] MEDS: THIAMINE 100 MG TAB PO SCH (12:12)
[2023-03-09] MEDS: FOLIC ACID 1 MG TAB PO SCH (12:12)
[2023-03-09 12:33] LABS: Appearance,Urine Clear (Clear); Bilirubin,Urine Negative (Negative); Blood,Urine Negative (Negative); Color,Urine Colorless; Glucose,Urine (UA) Negative (Negative); Ketones,Urine Negative (Negative); Leukocyte Esterase,Urine Negative (Negative); Nitrite,Urine Negative (Negative); Protein,Urine Negative (Negative); Specific Gravity,Urine 1.007 (1.001-1.035); Urobilinogen,Urine <2.0 mg/dL (<2.0)
[2023-03-09] MEDS: ASPIRIN 81 MG PO SCH (20:05)
--- NOTE | 2023-03-09 23:29 | PN ---
PROGRESS NOTE DATE OF SERVICE: 03/09/2023 SUBJECTIVE: This 82-year-old gentleman was admitted after a hxy-DE-reazckhvh myocardial infarction, underwent cardiac catheterization with LAD stenting. The patient was confused indicating acute delirium. A CAT scan of the brain done yesterday showed stable remote small infarcts. There is no history of any fever, rigors, or chills. PAST MEDICAL HISTORY: Reviewed. REVIEW OF SYSTEMS: A 14-point review is negative except as mentioned. CURRENT MEDICATIONS: Reviewed include folic acid and Zestril, rest of the medications and doses are reviewed. OBJECTIVE: VITAL SIGNS: Pulse is 90, blood pressure 160/80, respirations 16,. CHEST: Clear to auscultation. CARDIOVASCULAR: S1, S2. ABDOMEN: Soft. NERVOUS SYSTEM: No focal deficits. LABORATORY DATA: Reviewed. ASSESSMENT: 1. Acute tce-UZ-cwvfbuj-elevation myocardial infarction, status post cardiac catheterization, LAD stenting. 2. Acute delirium. 3. Degenerative joint disease. 4. Seizure disorder. 5. History of syncope. 6. History of appendectomy. 7. Full code. RECOMMENDATIONS: Recommended to continue current management, continue symptomatic treatment, otherwise at this time I would recommend repeat labs in the morning. Continue with dual antiplatelet treatment. Watch for any delirium, p.r.n. Seroquel has been ordered. Discussed at length with the family at the bedside and prognosis guarded. Further recommendations to follow, see orders for details. MMODL / IJN: [id number] /
[2023-03-10] MEDS: TAMSULOSIN 0.4 MG CAP.ER.24H PO SCH (08:57)
[2023-03-10] MEDS: METOPROLOL TARTRATE 25 MG TAB PO SCH (08:57)
[2023-03-10] MEDS: lisinopriL 5 MG TAB PO SCH (08:57)
[2023-03-10] MEDS: TICAGRELOR 90 MG TAB PO SCH (08:57)
[2023-03-10] MEDS: ATORVASTATIN 80 MG TAB PO SCH (08:57)
[2023-03-10 09:04] VITALS: BP 133/74; PULSE 66; RESP 18; TEMP 98.2
--- NOTE | 2023-03-10 10:23 | P.PN ---
Subjective Progress Note Date: 03/10/23 HISTORY OF PRESENT ILLNESS: This is a pleasant 82-year-old with past medical history significant for hyp ertension as well as previous pacemaker that was removed apparently after electrolytes were improved as well as remote tobacco abuse. Patient presented with chest pain that started at 3 AM. He states he has never had pain similar to this in the past. He admits to associated shortness breath. He presented to the ER and was found to have diffuse anterolateral ST elevations as well as inferior ST elevations which did improve after aspirin and heparin. Denies any family history of or coronary artery disease. He did have a pacemaker placed previously however the generator was taken out as he did not need this anymore. 03/08/2023 Patient is status post cardiac catheterization yesterday with Dr. Jovel. Patient was found to have 90% ostial LAD, 70% stenosis of diagonal, circumflex 30-40% lesion, and proximal RCA 50% lesion. Patient underwent PCI of the left main into the LAD. Patient examined this morning in the intensive care unit. Patient denies any chest pain or pressure. He denies any shortness of breath. Telemetry reveals sinus mechanism. Patient did have some bradycardia overnight while sleeping. He denies any dizziness or lightheadedness. 03/09/2023 Patient examined this morning at the bedside. Patient's daughter is present. Patient denies any chest pain or pressure. He denies any shortness of breath. Patient had some confusion yesterday and underwent CT of the brain which was negative for an acute process. Echocardiogram completed revealing ejection frac tion 40-45% with mid ventricle and apical hypokinesis, mild MR, mild TR Vital signs this morning are stable. Blood pressure slightly elevated this morning. However previous readings have been well controlled. 03/10 Patient is seen today on the CSD unit. Patient denies having any chest pain or pressure. No lightheadedness or dizziness. He is complaining of pressure with his bladder. Urinalysis was negative. Blood pressure 133/74, heart rate 66, pulse ox is 95% on room air, afebrile. BUN 25 creatinine 0.86. PHYSICAL EXAM: VITAL SIGNS: Reviewed. GENERAL: Well-developed in no acute distress. NECK: Supple. No JVD or thyromegaly LUNGS: Respirations even and unlabored. Lungs essentially clear to auscultation bilaterally. HEART: Regular rate and rhythm. S1 and S2 heard. EXTREMITIES: Normal range of motion. No clubbing or cyanosis. Peripheral pulses intact. No lower extremity edema ASSESSMENT: Acute STEMI, status post stenting of left main and LAD Coronary artery disease Ischemic myopathy, ejection fraction 40-45% Hypertension Previous history of pacemaker implantation, status post generator removal Asymptomatic bradycardia PLAN: Patient is cleared for discharge from Cardiology He may follow up with Dr. Jovel in 1 week Cardiac medications have been addressed in med rec and new prescriptions have been sent to his pharmacy. Patient is unable to afford the [employer] co-pay. Patient will receive one month free and this will be addressed at his next appointment. Nurse practitioner note has been reviewed by physician. Signing provider agrees with the documented findings, assessment, and plan of care. Objective - Vital Signs Vital signs: Vital Signs Temp 98.2 F 03/10/23 08:53 Pulse 66 03/10/23 08:53 Resp 18 03/10/23 08:53 BP 133/74 03/10/23 08:53 Pulse Ox 95 03/10/23 08:53 FiO2 Intake & Output 03/09/23 03/10/23 03/10/23 18:59 06:59 18:59 Intake Total 570 240 Output Total 200 0 Balance 370 0 240 Intake: Oral 570 240 Output: Urine 200 Stool 0 0 Other: Voiding Method Toilet Toilet Toilet Urinal Urinal Urinal # Voids 1 1 - Labs CBC & Chem 7: 03/10/23 11:39 03/10/23 11:39 Labs: Abnormal Lab Results - Last 24 Hours (Table) 03/09/23 Range/Units 09:25 BUN 24 H (9-20) mg/dL Glucose 151 H (74-99) mg/dL AST 70 H (17-59) U/L Total Protein 6.1 L (6.3-8.2) g/dL
[2023-03-10] MEDS: THIAMINE 100 MG TAB PO SCH (11:55)
[2023-03-10] MEDS: MULTIVITAMINS, THERA 1 EACH TAB PO SCH (11:55)
[2023-03-10] MEDS: FOLIC ACID 1 MG TAB PO SCH (11:55)
[2023-03-10 12:36] LABS: Basophils % (A) 0 %; Eosinophils # (A) 0.1 k/uL (0-0.7); Eosinophils % (A) 2 %; HCT 39.5 % (39.0-53.0); HGB 13.2 gm/dL (13.0-17.5); Lymphocytes # (A) 1.1 k/uL (1.0-4.8); Lymphocytes % (A) 15 %; MCH 34.4 pg (25.0-35.0); MCHC 33.5 g/dL (31.0-37.0); MCV 102.8 fL (80.0-100.0); Macrocytosis Slight; Mean Platelet Volume 9.3; Monocytes # (A) 0.5 k/uL (0-1.0); Monocytes % (A) 7 %; Neutrophils # (A) 5.9 k/uL (1.3-7.7); Neutrophils % (A) 76 %; Platelet Count 142 k/uL (150-450); RBC 3.84 m/uL (4.30-5.90); RDW 13.8 % (11.5-15.5); WBC 7.8 k/uL (3.8-10.6)
[2023-03-10 12:54] LABS: African American GFR (CKD) >90 (>60 ml/min/1.73 sqM); Anion Gap 6 mmol/L; Blood Urea Nitrogen 25 mg/dL (9-20); Calcium 8.9 mg/dL (8.4-10.2); Carbon Dioxide 26 mmol/L (22-30); Chloride 103 mmol/L (98-107); Glucose 87 mg/dL (74-99); Non-African American GFR(CKD) 80 (>60 ml/min/1.73 sqM); Potassium 4.2 mmol/L (3.5-5.1); Sodium 135 mmol/L (137-145)
--- NOTE | 2023-03-10 14:41 | DS ---
DISCHARGE SUMMARY FINAL DIAGNOSES: 1. Acute whv-NZ-rwldsov-elevation myocardial infarction, status post cardiac catheterization and LAD stenting. 2. Acute delirium, improved. 3. Degenerative joint disease. 4. Seizure disorder. 5. History of syncope. 6. History of appendectomy. 7. Full code. DISCHARGE DISPOSITION: The patient will be discharged in stable condition. Guarded prognosis. HISTORY OF PRESENT ILLNESS: This is an 82-year-old gentleman with a past medical history of multiple issues, was admitted with acute gfj-VJ-kgoznky-elevation myocardial infarction. The patient had cardiac stenting. The patient has some minimal delirium. Otherwise, improved significantly. The CT scan showed only old strokes. Recommend followup in outpatient setting and discharged. PHYSICAL EXAMINATION: VITALS: Stable. CARDIOVASCULAR: S1, soft. NERVOUS SYSTEM: No focal deficits. DISCHARGE MEDICATIONS: Continue with dual antiplatelet treatment including Brilinta, aspirin, and Lipitor, metoprolol and discontinue the Coreg and nifedipine. Follow up with Cardiology and as recommended. Follow up with Urology regarding the urological issues. MMODL / IJN: [id number] /
== END 2023-03-10 14:06 | disposition home or self-care (01) | DRG 322 ==
LOC: EC 06:13 → 2SICU 06:32 → 3SCARD 03-08 11:57
PROVIDERS: ADMIT Hospitalist; ATTEND Hospitalist
PROC: B2111ZZ Fluoroscopy of Multiple Coronary Arteries using Low Osmolar Contrast (ICD-10-PCS; 2023-03-07)
PROC: 027034Z Dilation of Coronary Artery, One Artery with Drug-eluting Intraluminal Device, Percutaneous Approach (ICD-10-PCS; principal; 2023-03-07 06:55)
PROC: 4A023N7 Measurement of Cardiac Sampling and Pressure, Left Heart, Percutaneous Approach (ICD-10-PCS; 2023-03-07 06:55)
PROC: B246ZZ3 Ultrasonography of Right and Left Heart, Intravascular (ICD-10-PCS; 2023-03-07 06:55)
DX: I21.09 ST elevation (STEMI) myocardial infarction involving other coronary artery of anterior wall (principal); F05 Delirium due to known physiological condition; I08.1 Rheumatic disorders of both mitral and tricuspid valves; I25.10 Atherosclerotic heart disease of native coronary artery without angina pectoris; I10 Essential (primary) hypertension; R00.1 Bradycardia, unspecified; I25.5 Ischemic cardiomyopathy; Z95.0 Presence of cardiac pacemaker; G40.909 Epilepsy, unspecified, not intractable, without status epilepticus; M19.90 Unspecified osteoarthritis, unspecified site; Z87.19 Personal history of other diseases of the digestive system; Z79.899 Other long term (current) drug therapy; I25.2 Old myocardial infarction; Z82.49 Family history of ischemic heart disease and other diseases of the circulatory system; Z86.73 Personal history of transient ischemic attack (TIA), and cerebral infarction without residual deficits; Z86.74 Personal history of sudden cardiac arrest; Z87.891 Personal history of nicotine dependence; Z90.49 Acquired absence of other specified parts of digestive tract; Z95.5 Presence of coronary angioplasty implant and graft
CPT/HCPCS: 70450; 71045; 71046; 80048; 80053; 80061; 81003; 83605; 83735; 83880; 84100; 84484; 85025; 85610; 85730; 92978; 93005; 93306; 93454; 96374; 96375; 99291

== ENCOUNTER 2023-04-03 04:04 | Inpatient (IN) | payer MEDICARE ==
--- NOTE | 2023-04-03 05:08 | ED ---
General Adult HPI - General Chief complaint: Seizure Stated complaint: Seizure Time Seen by Provider: 04/03/23 04:42 Source: EMS Mode of arrival: EMS Limitations: altered mental status - History of Present Illness Initial comments: Dictation was produced using Smart Panel dictation software. please excuse any grammatical, word or spelling errors. Chief Complaint: 82-year-old male presents with family members for seizure History of Present Illness: This is a 2-year-old male he has past medical history of seizure disorder. He has not taken seizure medication several months. He is to be prescribed Keppra however he wasn't fond of the side effects so stopped taking it. Patient otherwise has been his usual health. Yesterday evening he had episode that lasted several minutes. As witnessed by family members followed by postictal state. Another episode approximately 3 hours prior to arrival. Patient states he feels tired. Denies any pain. No constitutional symptoms. The ROS documented in this emergency department record has been reviewed and confirmed by me. Those systems with pertinent positive or negative responses peterson ve been documented in the HPI. All other systems are other negative and/or noncontributory. - Related Data Home Medications Medication Instructions Recorded Confirmed Aspirin EC [Ecotrin Low Dose] 81 mg PO HS 03/07/23 03/07/23 Previous Rx's Medication Instructions Recorded Atorvastatin [Lipitor] 80 mg PO DAILY #90 tab 03/10/23 Folic Acid 1 mg PO DAILY@1200 #30 tab 03/10/23 Mag Hydrox/Al Hydrox/Simeth 30 ml PO Q4HR PRN ml 03/10/23 [Maalox] Metoprolol Tartrate [Lopressor] 25 mg PO BID #180 tab 03/10/23 Multivitamins, Thera [Multivitamin 1 each PO DAILY@1200 #30 tab 03/10/23 (formulary)] Nitroglycerin Sl Tabs [Nitrostat] 0.4 mg SUBLINGUAL Q5M PRN #25 tab 03/10/23 Tamsulosin [Flomax] 0.4 mg PO PC-BRKFST #30 cap 03/10/23 Thiamine [Vitamin B-1] 100 mg PO DAILY@1200 #30 tab 03/10/23 Ticagrelor [Brilinta] 90 mg PO BID #180 tab 03/10/23 lisinopriL [Zestril] 5 mg PO DAILY #90 tab 03/10/23 Allergies Allergy/AdvReac Type Severity Reaction Status Date / Time lactose AdvReac Nausea & Verified 04/03/23 04:16 Vomiting & Diarrhea Review of Systems ROS Statement: Those systems with pertinent positive or pertinent negative responses have been documented in the HPI. ROS Other: All systems not noted in ROS Statement are negative. Past Medical History Past Medical History: GERD/Reflux, Osteoarthritis (OA), Prostate Disorder, Seiz ure Disorder, Skin Disorder, Syncope Additional Past Medical History / Comment(s): Seizures, spouse states pt has had cardiac arrest in past, low phosphorus in past worked up extensively with at several institutions and no cause found/levels have been normal last few month/p t now off phosphorus medication, low testosterone in the past but levels have been normal last few months so pt is off testoterone rx, thought possibly had hypoglycemia, rare ocular migraines, BPH, psoriasis, lactose intolerant. History of Any Multi-Drug Resistant Organisms: None Reported Past Surgical History: Appendectomy, Hernia Repair, Pacemaker, Prostate Surgery Additional Past Surgical History / Comment(s): Prostrate vaporization and TURP, L inguinal hernia repair, deviated septum surgery, pacemaker later removed but still has wires, EGD/colonoscopy. Past Anesthesia/Blood Transfusion Reactions: No Reported Reaction Additional Past Anesthesia/Blood Transfusion Reaction / Comment(s): Pt has never received blood. Date of Last Stent Placement:: 03/07/2023 Type of Cardiac Device: Permanent Pacemaker Device Placement Date:: 1996-since removed/still has wires Past Psychological History: Anxiety Past Alcohol Use History: None Reported Past Drug Use History: None Reported - Past Family History Sister(s) Family Medical History: Thyroid Disorder Additional Family Medical History / Comment(s): Hyperthyroidism Father Family Medical History: Myocardial Infarction ([place]) Additional Family Medical History / Comment(s): Father at age 66 or 67yrs of [place] Mother Family Medical History: No Reported History Additional Family Medical History / Comment(s): AGE 93 was healthy Brother(s) Family Medical History: Cancer Additional Family Medical History / Comment(s): Older brother had geoblastoma/brain cancer and younger brother with renal cancer/renal failure and is on dialysis. General Exam - General Exam Comments Initial Comments: PHYSICAL EXAM: General Impression: Alert and oriented x3, not in acute distress HEENT: Normocephalic atraumatic, extra-ocular movements intact, pupils equal and reactive to light bilaterally, mucous membranes moist. Cardiovascular: Heart regular rate and rhythm Chest: Able to complete full sentences, no retractions, no tachypnea Abdomen: abdomen soft, non-tender, non-distended, no organomegaly Musculoskeletal: Pulses present and equal in all extremities, no peripheral edema Motor: no focal deficits noted Neurological: CN II-XII grossly intact, no focal motor or sensory deficits noted Skin: Intact with no visualized rashes Psych: Normal affect and mood Limitations: altered mental status Course Vital Signs 04/03/23 04:07 Temperature 97.9 F Pulse Rate 75 Respiratory 18 Rate Blood Pressure 160/73 O2 Sat by Pulse 96 Oximetry EKG Findings - EKG Comments: EKG Findings:: My EKG interpretation: Ventricular rate 86, sinus bradycardia,. Interval 92, QRS 129, QTc 463. No FL prolongation, no QTC prolongation, no ST or T-wave changes noted. EKG compared to 03/07/2023 showing no changes. Overall, this EKG is unremarkable Medical Decision Making - Medical Decision Making Was pt. sent in by a medical professional or institution (, PA, CPR INSTRUCTOR, urgent care, hospital, or long-term...) When possible be specific @ -No Did you speak to anyone other than the patient for history (EMS, parent, family, police, friend...)? What history was obtained from this source @ -Family at the bedside states that patient had a seizure Did you review nursing and triage notes (agree or disagree)? Why? @ -I reviewed and agree with nursing and triage notes Were old charts reviewed (outside hosp., previous admission, EMS record, old EKG, old radiological studies, urgent care reports/EKG's, long-term records)? Report findings @ -No old charts were reviewed Differential Diagnosis (chest pain, altered mental status, abdominal pain women, abdominal pain men, vaginal bleeding, musculoskeletal, weakness, fever, dyspnea, syncope, headache, dizziness, GI bleed, back pain, seizure, CVA, palpatations, mental health)? @ -Differential Seizure: Recurrent seizure disorder, febrile seizure, alcohol withdrawal, stimulants, meningitis, encephalitis, intercranial hemorrhage, intracranial tumor, stroke, eclampsia, thyrotoxicosis, hypocalcemia, hyponatremia, hypernatremia, hypomagnesemia, psychogenic, this is not meant to be an all-inclusive list. EKG interpreted by me (3pts min.). @ -See above X-rays interpreted by me (1pt min.). @ -None done CT interpreted by me (1pt min.). @ -Computed tomography scan of the brain shows no acute processes U/S interpreted by me (1pt. min.). @ -None done What testing was considered but not performed or refused? (CT, X-rays, U/S, labs)? Why? @ -None What meds were considered but not given or refused? Why? @ -None Did you discuss the management of the patient with other professionals (professionals i.e. , PA, CPR INSTRUCTOR, lab, RT, psych nurse, social work instructor, health information coder, t eacher, financial compliance officer, case operator)? Give summary @ -Case discussed with hospitalist for admission Was smoking cessation discussed for >3mins.? @ -No Was critical care preformed (if so, how long)? @ -No Were there social determinants of health that impacted care today? How? (Homelessness, low income, unemployed, alcoholism, drug addiction, transportation, low edu. Level, literacy, decrease access to med. care, fpc, rehab)? @ -No Was there de-escalation of care discussed even if they declined (Discuss DNR or withdrawal of care, Hospice)? DNR status @ -No What co-morbidities impacted this encounter? (DM, HTN, Smoking, COPD, CAD, Cancer, CVA, ARF, Chemo, Hep., AIDS, mental health diagnosis, sleep apnea, morbid obesity)? @ -None Was patient admitted / discharged? Hospital course, mention meds given and route, prescriptions, significant lab abnormalities, going to OR and other pertinent info. @ -82-year-old male presents to emergency department after having had 2 seizures within 24 hours. Vital signs stable. Clinical presentation consistent with status epilepticus. Laboratory evaluation is within acceptable limits. Computed tomography scan of brain is unremarkable. Patient monitored in the emergency department for several hours with no recurrence of seizures. Patient be admitted with consultation to neurology. Undiagnosed new problem with uncertain prognosis? @ -No Drug Therapy requiring intensive monitoring for toxicity (Heparin, Nitro, Insulin, Cardizem)? @ -No Were any procedures done? @ -No Diagnosis/symptom? Acute, or Chronic, or Acute on Chronic? Uncomplicated (without systemic symptoms) or Complicated (systemic symptoms)? @ -Status epilepticus Side effects of treatment? @ -No Exacerbation, Progression, or Severe Exacerbation? @ -No Poses a threat to life or bodily function? How? (Chest pain, [place], [place], pneumonia, PE, COPD, DKA, ARF, appy, cholecystitis, CVA, Diverticulitis, Homicidal, Suicidal, threat to staff... and all critical care pts) @ -yes - Lab Data Result diagrams: 04/03/23 06:54 04/03/23 05:00 Lab Results 04/03/23 04/03/23 04/03/23 Range/Units 05:00 05:00 06:54 WBC 12.7 H (3.8-10.6) k/uL RBC 3.95 L (4.30-5.90) m/uL Hgb 13.3 (13.0-17.5) gm/dL Hct 40.0 (39.0-53.0) % MCV 101.3 H (80.0-100.0) fL MCH 33.7 (25.0-35.0) pg MCHC 33.3 (31.0-37.0) g/dL RDW 13.4 (11.5-15.5) % Plt Count 164 (150-450) k/uL MPV 9.3 Neutrophils % 89 % Lymphocytes % 6 % Monocytes % 4 % Eosinophils % 0 % Basophils % 0 % Neutrophils # 11.3 H (1.3-7.7) k/uL Lymphocytes # 0.7 L (1.0-4.8) k/uL Monocytes # 0.5 (0-1.0) k/uL Eosinophils # 0.0 (0-0.7) k/uL Basophils # 0.0 (0-0.2) k/uL Macrocytosis Slight Sodium 137 (137-145) mmol/L Potassium 5.1 (3.5-5.1) mmol/L Chloride 106 (98-107) mmol/L Carbon Dioxide 22 (22-30) mmol/L Anion Gap 9 mmol/L BUN 24 H (9-20) mg/dL Creatinine 0.88 (0.66-1.25) mg/dL Est GFR (CKD-EPI)AfAm >90 (>60 ml/min/1.73 sqM) Est GFR (CKD-EPI)NonAf 79 (>60 ml/min/1.73 sqM) Glucose 130 H (74-99) mg/dL Plasma Lactic Acid Amish 2.5 H* (0.7-2.0) mmol/L Calcium 8.8 (8.4-10.2) mg/dL Magnesium 2.1 (1.6-2.3) mg/dL Total Bilirubin 2.0 H (0.2-1.3) mg/dL AST 71 H (17-59) U/L ALT 40 (4-49) U/L Alkaline Phosphatase 38 (38-126) U/L Total Protein 6.6 (6.3-8.2) g/dL Albumin 4.0 (3.5-5.0) g/dL Disposition Clinical Impression: Status epilepticus Disposition: ADMITTED IP TO THIS [facility] Condition: Serious Instructions (If sedation given, give patient instructions): Seizure/Epilepsy Discharge Instructions & Follow-Up Referrals: Courtney Pearson [Primary Care Provider] - 1-2 days Decision Time: 07:37
[2023-04-03 06:00] LABS: ALT 40 U/L (4-49); AST 71 U/L (17-59); African American GFR (CKD) >90 (>60 ml/min/1.73 sqM); Alkaline Phosphatase 38 U/L (38-126); Anion Gap 9 mmol/L; Blood Urea Nitrogen 24 mg/dL (9-20); Calcium 8.8 mg/dL (8.4-10.2); Carbon Dioxide 22 mmol/L (22-30); Chloride 106 mmol/L (98-107); Glucose 130 mg/dL (74-99); Magnesium 2.1 mg/dL (1.6-2.3); Non-African American GFR(CKD) 79 (>60 ml/min/1.73 sqM); Potassium 5.1 mmol/L (3.5-5.1); Sodium 137 mmol/L (137-145); Total Protein 6.6 g/dL (6.3-8.2)
[2023-04-03 07:10] LABS: Basophils % (A) 0 %; Eosinophils % (A) 0 %; HGB 13.3 gm/dL (13.0-17.5); Lymphocytes # (A) 0.7 k/uL (1.0-4.8); Lymphocytes % (A) 6 %; MCH 33.7 pg (25.0-35.0); MCHC 33.3 g/dL (31.0-37.0); MCV 101.3 fL (80.0-100.0); Macrocytosis Slight; Mean Platelet Volume 9.3; Monocytes # (A) 0.5 k/uL (0-1.0); Monocytes % (A) 4 %; Neutrophils # (A) 11.3 k/uL (1.3-7.7); Neutrophils % (A) 89 %; Platelet Count 164 k/uL (150-450); RBC 3.95 m/uL (4.30-5.90); RDW 13.4 % (11.5-15.5); WBC 12.7 k/uL (3.8-10.6)
--- NOTE | 2023-04-03 07:10 | CT ---
EXAMINATION TYPE: CT brain wo con CT DLP: 1090 mGycm, Automated exposure control for dose reduction was used. DATE OF EXAM: 04/03/2023 6:37 AM COMPARISON: 03/08/2023.. CLINICAL INDICATION:Male, 82 years old with history of status epilepticus, TECHNIQUE: Brain: Axial CT images of the brain were obtained with coronal and sagittal reformats created and rev iewed. Contrast used: None. Oral contrast used: None. FINDINGS: Brain: Extra-axial spaces: No abnormal extra-axial fluid collections. Ventricular system: Dilatation in proportion to cerebral atrophy. Cerebral parenchyma: Hypodense area within the right thalamus and left caudate nucleus. Similar to pr ior. No acute intraparenchymal hemorrhage or mass effect. The carballo-white junction is well differenti ated. Scattered hypoattenuating areas are seen within the white matter. Cerebellum: Unremarkable. Mass effect: No evidence of midline shift. Intracranial vasculature: Atherosclerotic calcifications of the intracranial vessels. Soft tissues: Normal. Calvarium/osseous structures: No depressed skull fracture. Paranasal sinuses and mastoid air cells: Mild scattered paranasal sinus disease. Visualized orbits: Orbital contents are intact. IMPRESSION: 1. No acute intracranial process. 2. Nonspecific white matter changes, likely secondary to chronic small vessel ischemic disease. 3. Remote injury to the right thalamus versus prominent perivascular space.
[2023-04-03] MEDS ORDERED: NALOXONE 0.4 MG/ML 1 ML VIAL IV PRN (07:25)
[2023-04-03] MEDS: SODIUM CHLORIDE 0.9% 1,000 ML IV SCH (08:15)
[2023-04-03] MEDS ORDERED: LORazepam 2 MG/ML INJ IV PRN (10:44)
[2023-04-03] MEDS ORDERED: NITROGLYCERIN SL TABS 0.4 MG TAB SUBLINGUAL PRN (10:55)
[2023-04-03] MEDS ORDERED: lisinopriL 5 MG TAB PO SCH (11:00)
[2023-04-03] MEDS ORDERED: TAMSULOSIN 0.4 MG CAP.ER.24H PO SCH (11:00)
--- NOTE | 2023-04-03 11:01 | P.HPIM ---
History of Present Illness Patient is a pleasant 82-year-old male with known history of seizure disorder and was on Keppra for many years stopped taking that medication because of this side effects and the the weight that makes him feel. Patient came in with seizures and started at around 7 PM last night. Patient is pretty functional lives with daughter and . Patient had witnessed seizure today morning here which was witnessed by the staff which resolved with Ativan patient is presently sleeping when I evaluated the patient has he just received Ativan. Most of the history was obtained from the family members. Patient did have elevated lactic acid secondary to seizures. REVIEW OF SYSTEMS: All other systems are negative unable to obtain most of the history from the patient as he is sleeping PHYSICAL EXAMINATION: GENERAL: Patient is sleeping. Ativan, not in any acute distress. Well developed, well nourished. HEENT: Pupils are round and equally reacting to light. EOMI. No scleral icterus. No conjunctival pallor. Normocephalic, atraumatic. No pharyngeal erythema. No thyromegaly. CARDIOVASCULAR: S1 and S2 present. No murmurs, rubs, or gallops. PULMONARY: Chest is clear to auscultation, no wheezing or crackles. ABDOMEN: Soft, nontender, nondistended, normoactive bowel sounds. No palpable organomegaly. MUSCULOSKELETAL: No joint swelling or deformity. EXTREMITIES: No cyanosis, clubbing, or pedal edema. NEUROLOGICAL: Unable to assess SKIN: No rashes. Assessment and plan -Breakthrough seizures: Due to noncompliance of medications. Neurology will evaluate the patient once they recommend which antiseizure medication is more appropriate for him patient can be discharged on those medications.. -Lactic acidosis secondary to seizures x-ray and have him coronary artery disease patient will be started on atorvastatin, dual antiplatelet therapy, metoprolol and lisinopril. Gastroesophageal reflux disease -Benign prostatic hypertrophy for which patient is on tamsulosin which will be continued Patient probably can be discharged later today after evaluation by neurology and if he wakes up from Ativan affect and is not postictal Past Medical History Past Medical History: GERD/Reflux, Osteoarthritis (OA), Prostate Disorder, Seizure Disorder, Skin Disorder, Syncope Additional Past Medical History / Comment(s): Seizures, spouse states pt has had cardiac arrest in past, low phosphorus in past worked up extensively with at several institutions and no cause found/levels have been normal last few month/pt now off phosphorus medication, low testosterone in the past but levels have been normal last few months so pt is off testoterone rx, thought possibly had hypoglycemia, rare ocular migraines, BPH, psoriasis, lactose intolerant. History of Any Multi-Drug Resistant Organisms: None Reported Past Surgical History: Appendectomy, Hernia Repair, Pacemaker, Prostate Surgery Additional Past Surgical History / Comment(s): Prostrate vaporization and TURP, L inguinal hernia repair, deviated septum surgery, pacemaker later removed but still has wires, EGD/colonoscopy. Past Anesthesia/Blood Transfusion Reactions: No Reported Reaction Additional Past Anesthesia/Blood Transfusion Reaction / Comment(s): Pt has never received blood. Date of Last Stent Placement:: 03/07/2023 Type of Cardiac Device: Permanent Pacemaker Device Placement Date:: 1996-since removed/still has wires Past Psychological History: Anxiety Past Alcohol Use History: None Reported Past Drug Use History: None Reported - Past Family History Sister(s) Family Medical History: Thyroid Disorder Additional Family Medical History / Comment(s): Hyperthyroidism Father Family Medical History: Myocardial Infarction ([place]) Additional Family Medical History / Comment(s): Father at age 66 or 67yrs of [place] Mother Family Medical History: No Reported History Additional Family Medical History / Comment(s): AGE 93 was healthy Brother(s) Family Medical History: Cancer Additional Family Medical History / Comment(s): Older brother had geoblastoma/brain cancer and younger brother with renal cancer/renal failure and is on dialysis. Medications and Allergies Home Medications Medication Instructions Recorded Confirmed Type Aspirin EC [Ecotrin Low Dose] 81 mg PO HS 03/07/23 03/07/23 History Atorvastatin [Lipitor] 80 mg PO DAILY #90 tab 03/10/23 Rx Folic Acid 1 mg PO DAILY@1200 #30 tab 03/10/23 Rx Mag Hydrox/Al Hydrox/Simeth 30 ml PO Q4HR PRN ml 03/10/23 Rx [Maalox] Metoprolol Tartrate [Lopressor] 25 mg PO BID #180 tab 03/10/23 Rx Multivitamins, Thera [Multivitamin 1 each PO DAILY@1200 #30 tab 03/10/23 Rx (formulary)] Nitroglycerin Sl Tabs [Nitrostat] 0.4 mg SUBLINGUAL Q5M PRN #25 tab 03/10/23 Rx Tamsulosin [Flomax] 0.4 mg PO PC-BRKFST #30 cap 03/10/23 Rx Thiamine [Vitamin B-1] 100 mg PO DAILY@1200 #30 tab 03/10/23 Rx Ticagrelor [Brilinta] 90 mg PO BID #180 tab 03/10/23 Rx lisinopriL [Zestril] 5 mg PO DAILY #90 tab 03/10/23 Rx Allergies Allergy/AdvReac Type Severity Reaction Status Date / Time lactose AdvReac Nausea & Verified 04/03/23 04:16 Vomiting & Diarrhea Physical Exam Vitals: Vital Signs Temp Pulse Resp BP Pulse Ox 04/03/23 08:13 99.2 F 77 16 120/55 92 L 04/03/23 04:07 97.9 F 75 18 160/73 96 Intake and Output 04/02/23 04/03/23 04/03/23 22:59 06:59 14:59 Other: Weight 79.379 kg Results CBC & Chem 7: 04/03/23 06:54 04/03/23 05:00 Labs: Abnormal Lab Results - Last 24 Hours (Table) 04/03/23 04/03/23 04/03/23 Range/Units 05:00 05:00 06:54 WBC 12.7 H (3.8-10.6) k/uL RBC 3.95 L (4.30-5.90) m/uL MCV 101.3 H (80.0-100.0) fL Neutrophils # 11.3 H (1.3-7.7) k/uL Lymphocytes # 0.7 L (1.0-4.8) k/uL BUN 24 H (9-20) mg/dL Glucose 130 H (74-99) mg/dL Plasma Lactic Acid Amish 2.5 H* (0.7-2.0) mmol/L Total Bilirubin 2.0 H (0.2-1.3) mg/dL AST 71 H (17-59) U/L 04/03/23 Range/Units 08:52 WBC (3.8-10.6) k/uL RBC (4.30-5.90) m/uL MCV (80.0-100.0) fL Neutrophils # (1.3-7.7) k/uL Lymphocytes # (1.0-4.8) k/uL BUN (9-20) mg/dL Glucose (74-99) mg/dL Plasma Lactic Acid Amish 2.1 H* (0.7-2.0) mmol/L Total Bilirubin (0.2-1.3) mg/dL AST (17-59) U/L
--- NOTE | 2023-04-03 11:02 | P.DS ---
Providers Date of admission: 04/03/23 07:25 Attending physician: Rosalie Ramirez Consults: 04/03/23 07:25 Consult Physician Routine Consulting Provider: Katrin Sheets Consult Reason/Comments: seizure Do you want consulting provider notified?: Yes Primary care physician: Sutter Amador Hospital Course: Patient is a pleasant 82-year-old male with known history of seizure disorder and was on Keppra for many years stopped taking that medication because of this side effects and the the weight that makes him feel. Patient came in with seizures and started at around 7 PM last night. Patient is pretty functional lives with daughter and . Patient had witnessed seizure today morning here which was witnessed by the staff which resolved with Ativan patient is presently sleeping when I evaluated the patient has he just received Ativan. Most of the history was obtained from the family members. Patient did have elevated lactic acid secondary to seizures. REVIEW OF SYSTEMS: All other systems are negative unable to obtain most of the history from the patient as he is sleeping PHYSICAL EXAMINATION: GENERAL: Patient is sleeping. Ativan, not in any acute distress. Well developed, well nourished. HEENT: Pupils are round and equally reacting to light. EOMI. No scleral icterus. No conjunctival pallor. Normocephalic, atraumatic. No pharyngeal erythema. No thyromegaly. CARDIOVASCULAR: S1 and S2 present. No murmurs, rubs, or gallops. PULMONARY: Chest is clear to auscultation, no wheezing or crackles. ABDOMEN: Soft, nontender, nondistended, normoactive bowel sounds. No palpable organomegaly. MUSCULOSKELETAL: No joint swelling or deformity. EXTREMITIES: No cyanosis, clubbing, or pedal edema. NEUROLOGICAL: Unable to assess SKIN: No rashes. Assessment and plan -Breakthrough seizures: Due to noncompliance of medications. Neurology will evaluate the patient once they recommend which antiseizure medication is more appropriate for him patient can be discharged on those medications.. -Lactic acidosis secondary to seizures x-ray and have him coronary artery disease patient will be started on atorvastatin, dual antiplatelet therapy, metoprolol and lisinopril. Gastroesophageal reflux disease -Benign prostatic hypertrophy for which patient is on tamsulosin which will be continued Patient probably can be discharged later today after evaluation by neurology and if he wakes up from Ativan affect and is not postictal Patient Condition at Discharge: Serious Plan - Discharge Summary New Discharge Prescriptions: Continue Ticagrelor [Brilinta] 90 mg PO BID #180 tab Atorvastatin [Lipitor] 80 mg PO DAILY #90 tab lisinopriL [Zestril] 5 mg PO DAILY #90 tab Folic Acid 1 mg PO DAILY@1200 #30 tab Thiamine [Vitamin B-1] 100 mg PO DAILY@1200 #30 tab Aspirin EC [Ecotrin Low Dose] 81 mg PO HS Metoprolol Tartrate [Lopressor] 25 mg PO BID #180 tab Nitroglycerin Sl Tabs [Nitrostat] 0.4 mg SUBLINGUAL Q5M PRN #25 tab PRN Reason: Chest Pain Tamsulosin [Flomax] 0.4 mg PO PC-BRKFST #30 cap Mag Hydrox/Al Hydrox/Simeth [Maalox] 30 ml PO Q4HR PRN ml PRN Reason: Heartburn Multivitamins, Thera [Multivitamin (formulary)] 1 each PO DAILY@1200 #30 tab Discharge Medication List Aspirin EC [Ecotrin Low Dose] 81 mg PO HS 03/07/23 [History] Atorvastatin [Lipitor] 80 mg PO DAILY #90 tab 03/10/23 [Rx] Folic Acid 1 mg PO DAILY@1200 #30 tab 03/10/23 [Rx] Mag Hydrox/Al Hydrox/Simeth [Maalox] 30 ml PO Q4HR PRN ml 03/10/23 [Rx] Metoprolol Tartrate [Lopressor] 25 mg PO BID #180 tab 03/10/23 [Rx] Multivitamins, Thera [Multivitamin (formulary)] 1 each PO DAILY@1200 #30 tab 03/10/23 [Rx] Nitroglycerin Sl Tabs [Nitrostat] 0.4 mg SUBLINGUAL Q5M PRN #25 tab 03/10/23 [Rx] Tamsulosin [Flomax] 0.4 mg PO PC-BRKFST #30 cap 03/10/23 [Rx] Thiamine [Vitamin B-1] 100 mg PO DAILY@1200 #30 tab 03/10/23 [Rx] Ticagrelor [Brilinta] 90 mg PO BID #180 tab 03/10/23 [Rx] lisinopriL [Zestril] 5 mg PO DAILY #90 tab 03/10/23 [Rx] Follow up Appointment(s)/Referral(s): Arnie Jurado DO [STAFF PHYSICIAN] - 1 Week Courtney Pearson [Primary Care Provider] - 3 Days Patient Instructions/Handouts: Seizure/Epilepsy Discharge Instructions & Follow-Up Discharge Disposition: HOME SELF-CARE
--- NOTE | 2023-04-03 19:59 | EEG ---
ELECTROENCEPHALOGRAM REPORT PREAMBLE: This is an 82-year-old male came with status epilepticus. The patient has a history of epilepsy, not being treated with medication. EEG FINDINGS: This is a 21-channel digital EEG recorded with video component, utilizing 10/20 [employer] System with referential and bipolar montages. The recording starts with the patient being asleep, with presence of sleep spindles and diffuse low-amplitude theta and delta range activity. Photic driving response was not seen. The patient was somewhat awake for a very brief period of time, during which, 10 Hz posterior background alpha activity was seen. Reactivity to eye opening or closing was not clearly seen. Bitemporal, independent sharp waves were seen sporadically during this study. No electrographic seizure was recorded. EKG channel showed no obvious arrhythmia. IMPRESSION: This is an abnormal EEG due to presence of sporadic, intermittent, bitemporal, independent sharp waves seen. This is suggestive of focal cortical neuronal dysfunction in the above described region, with underlying cortical irritability and tendency for seizures. No electrographic seizure was recorded. MMODL / IJN: [id number] /
[2023-04-03] MEDS: METOPROLOL TARTRATE 25 MG TAB PO SCH ×2 (20:06→20:31)
[2023-04-03] MEDS: ATORVASTATIN 80 MG TAB PO SCH (20:06)
[2023-04-03] MEDS: TICAGRELOR 90 MG TAB PO SCH ×2 (20:06→20:31)
[2023-04-03] MEDS: lisinopriL 20 MG TAB PO SCH ×2 (20:07→20:31)
[2023-04-03] MEDS: MULTIVITAMINS, THERA 1 EACH TAB PO SCH (20:07)
[2023-04-03] MEDS ORDERED: Lacosamide IV (ages 17+ yrs) 200 MG/20 ML ML IVP SCH (21:00)
[2023-04-03] MEDS ORDERED: ASPIRIN 81 MG PO SCH (21:00)
--- NOTE | 2023-04-04 08:13 | P.CNNES ---
History of Present Illness Consult date: 04/03/23 Requesting physician: Amauri Herron Reason for Consult: Seizure History of Present Illness: Patient is a 82-year-old male with long-standing history of seizure disorder, currently not taking any seizure medication came with breakthrough grand mal seizures. Patient at present is postictal, has received Ativan, therefore not able to provide any history. Patient's daughter and were present today. Patient's family mentions that patient has history of seizure disorder for about 10+ years. He has 3 types of seizures. The first 2 type of seizures are more common and his grand mal seizure is very rare, for which he was brought to the hospital. His typical seizures consist of 30 seconds of memory glip in which he stares off and then he is back to normal. The second type of seizures starts with heavy breathing, that he moans, trying to get up and paces around, agitated and paces. He can only say "okay okay", or "I'm working on it". He exhibits repetitive behavior and is "out of it". He has no recollection of this memory, and is very tired after the event. This complete episode including post ictal confusion lasts for about 30 minutes, although the seizure-like activity lasts for 5 minutes. He has no memory of this event. Patient's daughter mentions that half the time he gets this kind of seizures and the other half times he gets memory glip type seizure as mentioned above. Patient's daughter has noticed that if he eats regularly, he has less of an issue. If he does not eat meals, then has tendency for seizures. Patient's daughter mentions that 4 weeks he may have no seizures that he may have several in a week and then none for a month and then may have several. The seizures occur somewhat in clusters. He has not had any grand mal seizure for long time. Yesterday at 7 PM he had a grand mal seizure was "out of it afterwards". He did bite his lip and also small area of tongue. Also lost control of urine. He had a second seizure at 2 AM this morning. He was brought to the hospital by ambulance, and arrived at 4:04 AM early this morning. Patient has previously tried Keppra, which was controlling seizures, but he did not like the way it feels him. He becomes irritable with Keppra. Therefore he stopped taking it. As per EMS flow sheet, when they arrived, patient was reported to have multiple seizures in a row but no seizures have stopped. Patient was sitting on the edge of the bed being held by his family. Patient had multiple seizures in the last hour. The last seizure was 4 days prior. Family mentions that he does not take medication because the way the medications make him feel. Patient was post ictal, trying to get up and is very confused. Patient has history of diabetes with recent cardiac stent placement. His blood glucose was 153, heart rate 84, respiration 20, saturation 98% and blood pressure 156/76. Patient was completely confused, not aware of his surroundings, wanted to leave. Patient also has history of hypophosphatemia, lactose intolerance and hypertension. Patient's family states that he has history of an ME about a month ago for which she was seen by Dr. Jovel underwent cardiac stenting. Patient's blood test shows normal electrolytes, renal functions, AST 71, ALT 40. Lactate was 2.5 on arrival. Now it is 1.5. WBC 12.7 hemoglobin 13.3 with elevated MCV 101.3. Platelets are normal. CT head revealed no acute i ntracranial process. Nonspecific white matter changes, likely secondary to chronic small vessel ischemic disease. Remote injury to the right thalamus versus prominent perivascular space. I personally reviewed CT head, agree with the findings. EKG shows sinus bradycardia Review of Systems As per report from patient's daughter and . Constitutional: Denies chills, Denies fever Eyes: denies blurred vision, denies diplopia, denies pain Ears: bilateral: decreased hearing, deny: earache, tinnitus Ears, nose, mouth and throat: Reports hoarseness, Denies headache, Denies sore throat Cardiovascular: Denies chest pain, Denies shortness of breath Respiratory: Reports cough, Denies excessive sputum Gastrointestinal: Reports diarrhea, Denies abdominal pain, Denies nausea, Denies vomiting Genitourinary: Denies dysuria, Denies flank pain, Denies impotence Musculoskeletal: Reports low back pain, Denies neck pain Integumentary: Denies pruritus, Denies rash Neurological: Reports as per HPI, Denies change in speech, Denies numbness, Denies paralysis, Denies vertigo Psychiatric: Denies anxiety, Denies depression (Stress) Endocrine: Reports fatigue, Denies weight change Past Medical History Past Medical History: GERD/Reflux, Osteoarthritis (OA), Prostate Disorder, Seizure Disorder, Skin Disorder, Syncope Additional Past Medical History / Comment(s): Seizures, spouse states pt has had cardiac arrest in past, low phosphorus in past worked up extensively with at several institutions and no cause found/levels have been normal last few month/pt now off phosphorus medication, low testosterone in the past but levels have been normal last few months so pt is off testoterone rx, thought possibly had hypoglycemia, rare ocular migraines, BPH, psoriasis, lactose intolerant. History of Any Multi-Drug Resistant Organisms: None Reported Past Surgical History: Appendectomy, Hernia Repair, Pacemaker, Prostate Surgery Additional Past Surgical History / Comment(s): Prostrate vaporization and TURP, L inguinal hernia repair, deviated septum surgery, pacemaker later removed but still has wires, EGD/colonoscopy. Past Anesthesia/Blood Transfusion Reactions: No Reported Reaction Additional Past Anesthesia/Blood Transfusion Reaction / Comment(s): Pt has never received blood. Date of Last Stent Placement:: 03/07/2023 Type of Cardiac Device: Permanent Pacemaker Device Placement Date:: 1996-since removed/still has wires Past Psychological History: Anxiety Past Alcohol Use History: None Reported Past Drug Use History: None Reported - Past Family History Sister(s) Family Medical History: Thyroid Disorder Additional Family Medical History / Comment(s): Hyperthyroidism Father Family Medical History: Myocardial Infarction ([place]) Additional Family Medical History / Comment(s): Father at age 66 or 67yrs of [place] Mother Family Medical History: No Reported History Additional Family Medical History / Comment(s): AGE 93 was healthy Brother(s) Family Medical History: Cancer Additional Family Medical History / Comment(s): Older brother had geoblastoma /brain cancer and younger brother with renal cancer/renal failure and is on dialysis. Medications and Allergies Home Medications Medication Instructions Recorded Confirmed Type Aspirin EC [Ecotrin Low Dose] 81 mg PO HS 03/07/23 04/03/23 History Atorvastatin [Lipitor] 80 mg PO DAILY #90 tab 03/10/23 04/03/23 Rx Folic Acid 1 mg PO DAILY@1200 #30 tab 03/10/23 04/03/23 Rx Mag Hydrox/Al Hydrox/Simeth 30 ml PO Q4HR PRN ml 03/10/23 04/03/23 Rx [Maalox] Metoprolol Tartrate [Lopressor] 25 mg PO BID #180 tab 03/10/23 04/03/23 Rx Nitroglycerin Sl Tabs [Nitrostat] 0.4 mg SUBLINGUAL Q5M PRN #25 tab 03/10/23 04/03/23 Rx Thiamine [Vitamin B-1] 100 mg PO DAILY@1200 #30 tab 03/10/23 04/03/23 Rx Ticagrelor [Brilinta] 90 mg PO BID #180 tab 03/10/23 04/03/23 Rx Multivitamins, Thera [Multivitamin 1 tab PO DAILY 04/03/23 04/03/23 History (formulary)] lisinopriL [Zestril] 20 mg PO DAILY 04/03/23 04/03/23 History Allergies Allergy/AdvReac Type Severity Reaction Status Date / Time lactose AdvReac Nausea & Verified 04/03/23 11:08 Vomiting & Diarrhea Physical Examination - Vital Signs Vital Signs: Vital Signs Temp Pulse Resp BP Pulse Ox 04/03/23 16:01 98.3 F 59 L 20 132/70 96 04/03/23 15:03 57 L 18 124/69 95 04/03/23 14:01 65 18 127/68 95 04/03/23 13:01 68 20 118/66 94 L 04/03/23 12:03 64 18 118/61 95 04/03/23 11:02 69 20 132/70 95 04/03/23 08:13 99.2 F 77 16 120/55 92 L 04/03/23 04:07 97.9 F 75 18 160/73 96 Intake and Output 04/03/23 04/03/23 04/03/23 06:59 14:59 22:59 Other: Weight 79.379 kg Patient is an elderly male, who is obviously postictal. Patient also has received Ativan. Patient is very groggy, postictal, somnolent. He does slightly wake up, but keeps his eyes closed, mumbles. This is typical for him to be like a postictal state, as per family. Speech and language functions could not be assessed, but after some time, he was able to speak more clearly. Detailed testing could not be performed. Attention, concentration is significantly impaired and fund of knowledge is difficult to assess because of mental status. On cranial nerve examination, pupils are equal, round and reacting to light, visual garay could not be tested because of mental status. Extraocular muscles are intact with no nystagmus. Face is symmetric, tongue protrudes to the midline. Palatal elevation and sensation cannot be assessed. Hearing, shoulder shrug cannot be assessed. On muscle strength testing, there is no pronator drift and the strength is normal in arms, although patient did not give optimal effort. He was moving his legs equally, but did not give full effort. Deep tendon reflexes are symmetric, but hypoactive. Sensory to touch is equal. Cerebellar functions cannot be assessed. Tone and bulk of muscles normal. Gait deferred.. On general examination, there is no carotid bruit or murmur, S1-S2 audible. Chest is clear on consultation. Abdomen is soft nontender. No organomegaly, bowel sounds present. Peripheral pulses are present. No peripheral edema. Results - Laboratory Findings CBC and BMP: 04/03/23 06:54 04/03/23 05:00 Abnormal Lab Findings: Abnormal Labs 04/03/23 04/03/23 04/03/23 05:00 05:00 06:54 WBC 12.7 H RBC 3.95 L MCV 101.3 H Neutrophils # 11.3 H Lymphocytes # 0.7 L BUN 24 H Glucose 130 H Plasma Lactic Acid Amish 2.5 H* Total Bilirubin 2.0 H AST 71 H 04/03/23 08:52 WBC RBC MCV Neutrophils # Lymphocytes # BUN Glucose Plasma Lactic Acid Amish 2.1 H* Total Bilirubin AST Assessment and Plan Assessment: * Long-standing history of localization-related epilepsy with temporal lobe seizures. Currently not on any antiepileptic medication. Patient typically gets complex partial seizures, however he presented with multiple grand mal seizures. * Hypertension * Left toes intolerance Plan: * EEG was performed, which was abnormal due to presence of sporadic intermittent, bitemporal, independent sharp waves. This is suggestive of focal cortical neuronal dysfunction with underlying cortical irritability and tendency for seizures. No electrographic seizure was recorded. * Patient has localization related epilepsy. He has previously tried Keppra but developed side effects, and does not want to go back on it. At present we will start him on Vimpat. He was given a loading dose of Vimpat 100 mg IV 1 dose. He will be discharged on Vimpat 50 mg twice a day for one week and then 100 mg twice a day and continue. Possible side effects were informed. * Patient was informed of [place] state law of no driving unless seizure free for 6 months, climbing ladders, operating dangerous machinery or unsupervised swimming. * Neurologically clear for discharge in a.m., if mentation and ambulation returns back to normal. * Patient has macrocytosis, we will check B12, folate. * Patient definitely needs to follow up with neurologist for further management of seizures. * Thank you for the consult. Time with Patient: Greater than 30
[2023-04-04] MEDS: ATORVASTATIN 80 MG TAB PO SCH (08:47)
[2023-04-04] MEDS: METOPROLOL TARTRATE 25 MG TAB PO SCH (08:49)
[2023-04-04] MEDS ORDERED: LACOSAMIDE 50 MG TABLET PO SCH (09:00)
[2023-04-04] MEDS ORDERED: lisinopriL 20 MG TAB PO ONE (09:00)
[2023-04-04] MEDS: SODIUM CHLORIDE 0.9% 1,000 ML IV SCH ×2 (09:57→12:53)
[2023-04-04] MEDS: TICAGRELOR 90 MG TAB PO SCH (10:22)
[2023-04-04 11:52] VITALS: PULSE 54
[2023-04-04] MEDS: MULTIVITAMINS, THERA 1 EACH TAB PO SCH (13:02)
[2023-04-04 14:08] VITALS: BP 136/89; RESP 16; TEMP 97.9
[2023-04-04] MEDS ORDERED: CYANOCOBALAMIN 500 MCG TAB PO SCH (15:00)
--- NOTE | 2023-04-06 07:05 | P.DS ---
Providers Date of admission: 04/03/23 07:25 Expected date of discharge: 04/04/23 Attending physician: Rosalie Ramirez Consults: 04/03/23 07:25 Consult Physician Routine Consulting Provider: Katrin Sheets Consult Reason/Comments: seizure Do you want consulting provider notified?: Yes Primary care physician: Courtney Pearson [facility] Course: Final diagnosis -Breakthrough seizures: Due to noncompliance of medications. -Lactic acidosis secondary to seizures -History of coronary artery disease -Gastroesophageal reflux disease -Benign prostatic hypertrophy -DVT prophylaxis -GI prophylaxis -Full code Discharge disposition Patient is being discharged in a stable condition with guarded prognosis to home. Patient will follow-up with Dr. Pearson in the outpatient setting upon discharge. Patient is to continue with close outpatient follow-up with neurology as scheduled. Patient is continued on Vimpat 50 mg twice daily for 1 week and then increase the dose to 100 mg twice daily thereafter. Total time taken is greater than 35 minutes. Hospital course This is a 82-year-old male who was recently admitted with breakthrough seizures secondary to noncompliance. Patient had been on Keppra although did not like the way it made him feel with significant side effects and had not been taking. Patient was seen and evaluated by neurology and has switched to vimpat and will continue. Patient is currently on 50 mg twice daily and will increase to 100 mg twice daily after and recommend close outpatient follow-up with neurology. Patient has been cleared by consultations. Please refer to neurology no for further HPI. Patient and family instructed on side effects of seizure medication and encouraged to monitor closely and discuss with primary care prov ider as well as neurology outpatient. Currently no reports of chest pain, shortness of breath, or palpitations. Patient is afebrile. No reports of nausea or vomiting and patient is tolerating diet. Patient will be discharged home today. High risk for readmission given noncompliance of medications Physical exam: Gen: This is a 82-year-old male who is awake, alert and oriented 3, thin built, elderly appearing HEENT: Head is atraumatic, normocephalic. Pupils equal, round. Sclerae is anicteric. NECK: Supple. No JVD. No lymphadenopathy. No thyromegaly. LUNGS: Clear to auscultation. No wheezes or rhonchi. No intercostal retractions. HEART: Regular rate and rhythm. No murmur. ABDOMEN: Soft. Bowel sounds are present. No masses. No tenderness. EXTREMITIES: No pedal edema. No calf tenderness. NEUROLOGICAL: Patient is awake, alert and oriented x3. Cranial nerves 2 through 12 are grossly intact. Please refer to medication reconciliation sheet for a list of medications. The impression and plan of care has been dictated by Emma Adrian, Nurse Practitioner as directed. Dr. Alison MD I have performed a history and examination and MDM of this patient, discussed the same with the dictator, and agree with the dictator's assessment and plan as written ,documented as a scribe. Based on total visit time, I have performed more than 50% of the visit. Patient Condition at Discharge: Fair Plan - Discharge Summary New Discharge Prescriptions: New Lacosamide [Vimpat] 50 mg PO BID #30 tab Continue Ticagrelor [Brilinta] 90 mg PO BID #180 tab Atorvastatin [Lipitor] 80 mg PO DAILY #90 tab Folic Acid 1 mg PO DAILY@1200 #30 tab Thiamine [Vitamin B-1] 100 mg PO DAILY@1200 #30 tab lisinopriL [Zestril] 20 mg PO DAILY Multivitamins, Thera [Multivitamin (formulary)] 1 tab PO DAILY Aspirin EC [Ecotrin Low Dose] 81 mg PO HS Metoprolol Tartrate [Lopressor] 25 mg PO BID #180 tab Nitroglycerin Sl Tabs [Nitrostat] 0.4 mg SUBLINGUAL Q5M PRN #25 tab PRN Reason: Chest Pain Mag Hydrox/Al Hydrox/Simeth [Maalox] 30 ml PO Q4HR PRN ml PRN Reason: Heartburn Discharge Medication List Aspirin EC [Ecotrin Low Dose] 81 mg PO HS 03/07/23 [History] Atorvastatin [Lipitor] 80 mg PO DAILY #90 tab 03/10/23 [Rx] Folic Acid 1 mg PO DAILY@1200 #30 tab 03/10/23 [Rx] Mag Hydrox/Al Hydrox/Simeth [Maalox] 30 ml PO Q4HR PRN ml 03/10/23 [Rx] Metoprolol Tartrate [Lopressor] 25 mg PO BID #180 tab 03/10/23 [Rx] Nitroglycerin Sl Tabs [Nitrostat] 0.4 mg SUBLINGUAL Q5M PRN #25 tab 03/10/23 [Rx] Thiamine [Vitamin B-1] 100 mg PO DAILY@1200 #30 tab 03/10/23 [Rx] Ticagrelor [Brilinta] 90 mg PO BID #180 tab 03/10/23 [Rx] Multivitamins, Thera [Multivitamin (formulary)] 1 tab PO DAILY 04/03/23 [History] lisinopriL [Zestril] 20 mg PO DAILY 04/03/23 [History] Lacosamide [Vimpat] 50 mg PO BID #30 tab 04/04/23 [Rx] Follow up Appointment(s)/Referral(s): Arnie Jurado DO [STAFF PHYSICIAN] - 1 Week (please call the office to schedule a follow up appointment) Courtney Pearson [Primary Care Provider] - 04/11/23 11:30 am Patient Instructions/Handouts: Seizure/Epilepsy Discharge Instructions & Follow-Up Activity/Diet/Wound Care/Special Instructions: Activity Limited until follow-up Follow-up with primary care provider and discharge Follow-up with neurology in 1-2 weeks Continue taking Vimpat 50 mg twice daily for 1 week and then increase the dose to 100 mg twice daily Discharge Disposition: HOME SELF-CARE
== END 2023-04-04 15:01 | disposition home or self-care (01) | DRG 101 ==
LOC: EC 04:04 → 5NMEDONC 07:25
PROVIDERS: ADMIT Hospitalist; ATTEND Hospitalist
DX: G40.201 Localization-related (focal) (partial) symptomatic epilepsy and epileptic syndromes with complex partial seizures, not intractable, with status epilepticus (principal); E87.20 Acidosis, unspecified; I25.10 Atherosclerotic heart disease of native coronary artery without angina pectoris; I10 Essential (primary) hypertension; R79.89 Other specified abnormal findings of blood chemistry; F41.9 Anxiety disorder, unspecified; K21.9 Gastro-esophageal reflux disease without esophagitis; N40.0 Benign prostatic hyperplasia without lower urinary tract symptoms; T42.6X6A Underdosing of other antiepileptic and sedative-hypnotic drugs, initial encounter; I25.2 Old myocardial infarction; Z79.02 Long term (current) use of antithrombotics/antiplatelets; Z79.899 Other long term (current) drug therapy; Z80.51 Family history of malignant neoplasm of kidney; Z80.8 Family history of malignant neoplasm of other organs or systems; Z82.49 Family history of ischemic heart disease and other diseases of the circulatory system; Z86.74 Personal history of sudden cardiac arrest; Z91.148 Patient's other noncompliance with medication regimen for other reason; Z91.199 Patient's noncompliance with other medical treatment and regimen due to unspecified reason; Z95.5 Presence of coronary angioplasty implant and graft; Z88.8 Allergy status to other drugs, medicaments and biological substances; Z91.128 Patient's intentional underdosing of medication regimen for other reason
CPT/HCPCS: 36415; 70450; 80053; 82607; 82746; 83605; 83735; 85025; 93005; 95819; 96374; 96375; 99285

== ENCOUNTER 2023-05-18 05:38 | Inpatient (IN) | payer MEDICARE ==
[2023-05-18] MEDS ORDERED: SODIUM CHLORIDE 0.9% 1,000 ML IV STA ×2 (06:19→06:38)
[2023-05-18 06:31] LABS: Basophils % (A) 0 %; Eosinophils # (A) 0.1 k/uL (0-0.7); Eosinophils % (A) 1 %; HCT 35.9 % (39.0-53.0); HGB 12.3 gm/dL (13.0-17.5); Lymphocytes # (A) 0.6 k/uL (1.0-4.8); Lymphocytes % (A) 4 %; MCH 34.3 pg (25.0-35.0); MCHC 34.1 g/dL (31.0-37.0); MCV 100.5 fL (80.0-100.0); Mean Platelet Volume 9.2; Monocytes # (A) 0.5 k/uL (0-1.0); Monocytes % (A) 3 %; Neutrophils # (A) 13.4 k/uL (1.3-7.7); Neutrophils % (A) 91 %; Platelet Count 125 k/uL (150-450); RBC 3.58 m/uL (4.30-5.90); RDW 13.3 % (11.5-15.5); WBC 14.8 k/uL (3.8-10.6)
--- NOTE | 2023-05-18 06:31 | ED ---
Weakness HPI - General Chief complaint: Weakness Stated complaint: fall,fever,weakness Time Seen by Provider: 05/18/23 05:57 Source: patient, family, RN notes reviewed Mode of arrival: ambulatory Limitations: no limitations - History of Present Illness Initial comments: This is an 82-year-old male who presents to the emergency department for generalized weakness. Reports increasing weakness over the last few days, especially in his legs. Denies any pain associated with this. States that when he goes to stand up, he feels like his legs are too weak and he just falls over. Denies any weakness in his upper body. Unsure if the weakness is worse in any particular leg. Additionally, he does report having a cough and his daughter states that his breathing is "noisy". Denies any chest pain. She also states that he was very warm and diaphoretic yesterday and this morning, but is unsure if he had a fever. MD Complaint: generalized weakness - Related Data Home Medications Medication Instructions Recorded Confirmed Aspirin EC [Ecotrin Low Dose] 81 mg PO HS 03/07/23 05/18/23 Multivitamins, Thera [Multivitamin 1 tab PO HS 04/03/23 05/18/23 (formulary)] lisinopriL [Zestril] 20 mg PO DAILY 04/03/23 05/18/23 Clopidogrel [Plavix] 75 mg PO DAILY 05/18/23 05/18/23 Lacosamide [Vimpat] 50 mg PO DAILY 05/18/23 05/18/23 Lacosamide [Vimpat] 100 mg PO HS 05/18/23 05/18/23 Magnesium Oxide [Mag-Ox] 250 mg PO HS 05/18/23 05/18/23 Previous Rx's Medication Instructions Recorded Atorvastatin [Lipitor] 80 mg PO DAILY #90 tab 03/10/23 Mag Hydrox/Al Hydrox/Simeth 30 ml PO Q4HR PRN ml 03/10/23 [Maalox] Metoprolol Tartrate [Lopressor] 25 mg PO BID #180 tab 03/10/23 Nitroglycerin Sl Tabs [Nitrostat] 0.4 mg SUBLINGUAL Q5M PRN #25 tab 03/10/23 Allergies Allergy/AdvReac Type Severity Reaction Status Date / Time lactose AdvReac Nausea & Verified 05/18/23 12:08 Vomiting & Diarrhea Review of Systems ROS Statement: Those systems with pertinent positive or pertinent negative responses have been documented in the HPI. ROS Other: All systems not noted in ROS Statement are negative. Past Medical History Past Medical History: GERD/Reflux, Osteoarthritis (OA), Prostate Disorder, Se izure Disorder, Skin Disorder, Syncope Additional Past Medical History / Comment(s): Seizures, spouse states pt has had cardiac arrest in past, low phosphorus in past worked up extensively with at several institutions and no cause found/levels have been normal last few month /pt now off phosphorus medication, low testosterone in the past but levels have been normal last few months so pt is off testoterone rx, thought possibly had hypoglycemia, rare ocular migraines, BPH, psoriasis, lactose intolerant. History of Any Multi-Drug Resistant Organisms: None Reported Past Surgical History: Appendectomy, Hernia Repair, Pacemaker, Prostate Surgery Additional Past Surgical History / Comment(s): Prostrate vaporization and TURP, L inguinal hernia repair, deviated septum surgery, pacemaker later removed but still has wires, EGD/colonoscopy. Past Anesthesia/Blood Transfusion Reactions: No Reported Reaction Additional Past Anesthesia/Blood Transfusion Reaction / Comment(s): Pt has never received blood. Date of Last Stent Placement:: 03/07/2023 Type of Cardiac Device: Permanent Pacemaker Device Placement Date:: 1996-since removed/still has wires Past Psychological History: Anxiety Smoking Status: Never smoker Past Alcohol Use History: None Reported Past Drug Use History: None Reported - Past Family History Sister(s) Family Medical History: Thyroid Disorder Additional Family Medical History / Comment(s): Hyperthyroidism Father Family Medical History: Myocardial Infarction ([place]) Additional Family Medical History / Comment(s): Father at age 66 or 67yrs of [place] Mother Family Medical History: No Reported History Additional Family Medical History / Comment(s): AGE 93 was healthy Brother(s) Family Medical History: Cancer Additional Family Medical History / Comment(s): Older brother had geoblastoma/brain cancer and younger brother with renal cancer/renal failure and is on dialysis. General Exam Limitations: no limitations General appearance: alert, in no apparent distress Head exam: Present: atraumatic, normocephalic, normal inspection Respiratory exam: Present: normal lung sounds bilaterally. Absent: respiratory distress, wheezes, rales, rhonchi, stridor Cardiovascular Exam: Present: regular rate, normal rhythm, normal heart sounds. Absent: systolic murmur, diastolic murmur, rubs, gallop, clicks GI/Abdominal exam: Present: soft, normal bowel sounds. Absent: distended, tenderness, guarding, rebound, rigid Neurological exam: Present: alert, oriented X3, CN II-XII intact Psychiatric exam: Present: normal affect, normal mood Skin exam: Present: warm, dry, intact, normal color. Absent: rash Course Vital Signs 05/18/23 05/18/23 05/18/23 05:46 06:30 07:38 Temperature 99.5 F 99.5 F Pulse Rate 92 70 73 Respiratory 18 16 18 Rate Blood Pressure 164/74 124/69 137/75 O2 Sat by Pulse 91 L 94 L 95 Oximetry 05/18/23 05/18/23 05/18/23 07:50 09:06 10:51 Temperature 98.2 F Pulse Rate 64 77 Respiratory 18 18 Rate Blood Pressure 128/65 128/70 O2 Sat by Pulse 94 L 94 L Oximetry 05/18/23 12:38 Temperature 99.7 F H Pulse Rate 78 Respiratory 18 Rate Blood Pressure 120/63 O2 Sat by Pulse 94 L Oximetry Medical Decision Making - Medical Decision Making This is an 82-year-old male who presents to the emergency department for generalized weakness. Was pt. sent in by a medical professional or institution? @ -No Did you speak to anyone other than the patient for history? @ -His daughter provided the majority of the information. Did you review nursing and triage notes? @ -Yes, and I agree, it is accurate with regards to the patient's symptoms. Were old charts reviewed? @ -No Differential Diagnosis? @ -Differential Weakness: Hypoglycemia, shock, sepsis, hyponatremia, anemia, infection, OK, ETOH, adverse medicine reaction, overdose, stroke, this is not meant to be an all-inclusive li st. EKG interpreted by me (3pts min.)? @ -EKG interpreted by me demonstrating the following: Sinus rhythm. Ventricular rate 83 beats per minute, OK interval 140 ms, QRS duration 118 ms, QTC 405 ms. X-rays interpreted by me (1pt min.)? @ -Chest x-ray obtained. My interpretation identifies right lobe opacities. CT interpreted by me (1pt min.)? @ -Not obtained U/S interpreted by me (1pt. min.)? @ -Not obtained What testing was considered but not performed? (CT, X-rays, U/S, labs)? Why? @ -None What meds were considered but not given? Why? @ -None Did you discuss the management of the patient with other professionals? @ -Yes, Shakira with [facility] who accepts the patient for admission. Did you reconcile home meds? @ -No Was smoking cessation discussed for >3mins.? @ -No Was critical care preformed (if so, how long)? @ -No Were there social determinants of health that impacted care today? How? (Candice elessness, low income, unemployed, alcoholism, drug addiction, transportation, low edu. Level, literacy, decrease access to med. care, correction, rehab)? @ -No Was there de-escalation of care discussed even if they declined? (Discuss DNR or withdrawal of care, Hospice)? @ -No What co-morbidities impacted this encounter? (DM, HTN, Smoking, COPD, CAD, Cancer, CVA, Hep., AIDS, mental health diagnosis, sleep apnea, morbid obesity)? @ -CAD, HLD, seizure disorder, osteoarthritis Was patient admitted / discharged? @ -Admitted. Lab work obtained demonstrating leukocytosis. Liver enzyme elevation is stable when compared with prior values. Lab work also demonstrates signs of dehydration and CRP elevation of 24.2. COVID, influenza, and RSV testing are negative. Chest x-ray obtained demonstrating right middle lobe opacities concerning for pneumonia. Urinalysis negative for signs of infection. Given the patient's progressive weakness with the pneumonia, he was admitted to medicine for further management. Patient started on the pneumonia protocol with ceftriaxone and azithromycin. Blood and sputum cultures obtained as well. Consults placed for physical and occupational therapy due to the weakness. Undiagnosed new problem with uncertain prognosis? @ -None Drug Therapy requiring intensive monitoring for toxicity (Heparin, Nitro, Insulin, Cardizem)? @ -None Were any procedures done? @ -None Diagnosis/symptom? @ -Pneumonia, weakness Acute, or Chronic, or Acute on Chronic? @ -Acute Uncomplicated (without systemic symptoms) or Complicated (systemic symptoms)? @ -Complicated Side effects of treatment? @ -None Exacerbation, Progression, or Severe Exacerbation] @ -Not applicable Poses a threat to life or bodily function? @ -Yes This case was discussed in detail with the attending ED physician, Dr. Chan. Presentation, findings, and treatment plan discussed in detail as well. - Lab Data Result diagrams: 05/18/23 06:06 05/18/23 06:06 Lab Results 05/18/23 05/18/23 05/18/23 Range/Units 06:06 06:06 06:06 WBC 14.8 H (3.8-10.6) k/uL RBC 3.58 L (4.30-5.90) m/uL Hgb 12.3 L (13.0-17.5) gm/dL Hct 35.9 L (39.0-53.0) % MCV 100.5 H (80.0-100.0) fL MCH 34.3 (25.0-35.0) pg MCHC 34.1 (31.0-37.0) g/dL RDW 13.3 (11.5-15.5) % Plt Count 125 L (150-450) k/uL MPV 9.2 Neutrophils % 91 % Lymphocytes % 4 % Monocytes % 3 % Eosinophils % 1 % Basophils % 0 % Neutrophils # 13.4 H (1.3-7.7) k/uL Lymphocytes # 0.6 L (1.0-4.8) k/uL Monocytes # 0.5 (0-1.0) k/uL Eosinophils # 0.1 (0-0.7) k/uL Basophils # 0.0 (0-0.2) k/uL PT 10.4 (10.0-12.5) sec INR 0.9 (<1.2) APTT 24.3 (22.0-30.0) sec Sodium (137-145) mmol/L Potassium (3.5-5.1) mmol/L Chloride (98-107) mmol/L Carbon Dioxide (22-30) mmol/L Anion Gap mmol/L BUN (9-20) mg/dL Creatinine (0.66-1.25) mg/dL Est GFR (CKD-EPI)AfAm (>60 ml/min/1.73 sqM) Est GFR (CKD-EPI)NonAf (>60 ml/min/1.73 sqM) Glucose (74-99) mg/dL Plasma Lactic Acid Amish (0.7-2.0) mmol/L Calcium (8.4-10.2) mg/dL Magnesium (1.6-2.3) mg/dL Total Bilirubin (0.2-1.3) mg/dL AST (17-59) U/L ALT (4-49) U/L Alkaline Phosphatase (38-126) U/L Creatine Kinase (55-170) U/L Troponin I (0.000-0.034) ng/mL C-Reactive Protein (<1.0) mg/dL Total Protein (6.3-8.2) g/dL Albumin (3.5-5.0) g/dL Urine Color Yellow Urine Appearance Cloudy (Clear) Urine pH 5.5 (5.0-8.0) Ur Specific [place] 1.023 (1.001-1.035) Urine Protein 2+ H (Negative) Urine Glucose (UA) Negative (Negative) Urine Ketones Negative (Negative) Urine Blood Small H (Negative) Urine Nitrite Negative (Negative) Urine Bilirubin Negative (Negative) Urine Urobilinogen <2.0 (<2.0) mg/dL Ur Leukocyte Esterase Negative (Negative) Urine RBC <1 (0-5) /hpf Urine WBC 2 (0-5) /hpf Ur Squamous Epith Cells <1 (0-4) /hpf Amorphous Sediment Few H (None) /hpf Hyaline Casts 1 (0-2) /lpf Urine Mucus Few H (None) /hpf Influenza Type A (PCR) (Not Detectd) Influenza Type B (PCR) (Not Detectd) RSV (PCR) (Not Detectd) SARS-CoV-2 (PCR) (Not Detectd) 05/18/23 05/18/23 05/18/23 Range/Units 06:06 06:06 06:06 WBC (3.8-10.6) k/uL RBC (4.30-5.90) m/uL Hgb (13.0-17.5) gm/dL Hct (39.0-53.0) % MCV (80.0-100.0) fL MCH (25.0-35.0) pg MCHC (31.0-37.0) g/dL RDW (11.5-15.5) % Plt Count (150-450) k/uL MPV Neutrophils % % Lymphocytes % % Monocytes % % Eosinophils % % Basophils % % Neutrophils # (1.3-7.7) k/uL Lymphocytes # (1.0-4.8) k/uL Monocytes # (0-1.0) k/uL Eosinophils # (0-0.7) k/uL Basophils # (0-0.2) k/uL PT (10.0-12.5) sec INR (<1.2) APTT (22.0-30.0) sec Sodium 133 L (137-145) mmol/L Potassium 3.6 (3.5-5.1) mmol/L Chloride 101 (98-107) mmol/L Carbon Dioxide 25 (22-30) mmol/L Anion Gap 7 mmol/L BUN 27 H (9-20) mg/dL Creatinine 0.90 (0.66-1.25) mg/dL Est GFR (CKD-EPI)AfAm >90 (>60 ml/min/1.73 sqM) Est GFR (CKD-EPI)NonAf 78 (>60 ml/min/1.73 sqM) Glucose 136 H (74-99) mg/dL Plasma Lactic Acid Amish 1.1 (0.7-2.0) mmol/L Calcium 8.4 (8.4-10.2) mg/dL Magnesium 1.7 (1.6-2.3) mg/dL Total Bilirubin 1.4 H (0.2-1.3) mg/dL AST 66 H (17-59) U/L ALT 71 H (4-49) U/L Alkaline Phosphatase 63 (38-126) U/L Creatine Kinase 34 L (55-170) U/L Troponin I 0.020 (0.000-0.034) ng/mL C-Reactive Protein (<1.0) mg/dL Total Protein 5.4 L (6.3-8.2) g/dL Albumin 3.1 L (3.5-5.0) g/dL Urine Color Urine Appearance (Clear) Urine pH (5.0-8.0) Ur Specific [place] (1.001-1.035) Urine Protein (Negative) Urine Glucose (UA) (Negative) Urine Ketones (Negative) Urine Blood (Negative) Urine Nitrite (Negative) Urine Bilirubin (Negative) Urine Urobilinogen (<2.0) mg/dL Ur Leukocyte Esterase (Negative) Urine RBC (0-5) /hpf Urine WBC (0-5) /hpf Ur Squamous Epith Cells (0-4) /hpf Amorphous Sediment (None) /hpf Hyaline Casts (0-2) /lpf Urine Mucus (None) /hpf Influenza Type A (PCR) (Not Detectd) Influenza Type B (PCR) (Not Detectd) RSV (PCR) (Not Detectd) SARS-CoV-2 (PCR) (Not Detectd) 05/18/23 05/18/23 Range/Units 06:06 06:06 WBC (3.8-10.6) k/uL RBC (4.30-5.90) m/uL Hgb (13.0-17.5) gm/dL Hct (39.0-53.0) % MCV (80.0-100.0) fL MCH (25.0-35.0) pg MCHC (31.0-37.0) g/dL RDW (11.5-15.5) % Plt Count (150-450) k/uL MPV Neutrophils % % Lymphocytes % % Monocytes % % Eosinophils % % Basophils % % Neutrophils # (1.3-7.7) k/uL Lymphocytes # (1.0-4.8) k/uL Monocytes # (0-1.0) k/uL Eosinophils # (0-0.7) k/uL Basophils # (0-0.2) k/uL PT (10.0-12.5) sec INR (<1.2) APTT (22.0-30.0) sec Sodium (137-145) mmol/L Potassium (3.5-5.1) mmol/L Chloride (98-107) mmol/L Carbon Dioxide (22-30) mmol/L Anion Gap mmol/L BUN (9-20) mg/dL Creatinine (0.66-1.25) mg/dL Est GFR (CKD-EPI)AfAm (>60 ml/min/1.73 sqM) Est GFR (CKD-EPI)NonAf (>60 ml/min/1.73 sqM) Glucose (74-99) mg/dL Plasma Lactic Acid Amish (0.7-2.0) mmol/L Calcium (8.4-10.2) mg/dL Magnesium (1.6-2.3) mg/dL Total Bilirubin (0.2-1.3) mg/dL AST (17-59) U/L ALT (4-49) U/L Alkaline Phosphatase (38-126) U/L Creatine Kinase (55-170) U/L Troponin I (0.000-0.034) ng/mL C-Reactive Protein 24.2 H (<1.0) mg/dL Total Protein (6.3-8.2) g/dL Albumin (3.5-5.0) g/dL Urine Color Urine Appearance (Clear) Urine pH (5.0-8.0) Ur Specific [place] (1.001-1.035) Urine Protein (Negative) Urine Glucose (UA) (Negative) Urine Ketones (Negative) Urine Blood (Negative) Urine Nitrite (Negative) Urine Bilirubin (Negative) Urine Urobilinogen (<2.0) mg/dL Ur Leukocyte Esterase (Negative) Urine RBC (0-5) /hpf Urine WBC (0-5) /hpf Ur Squamous Epith Cells (0-4) /hpf Amorphous Sediment (None) /hpf Hyaline Casts (0-2) /lpf Urine Mucus (None) /hpf Influenza Type A (PCR) Not Detected (Not Detectd) Influenza Type B (PCR) Not Detected (Not Detectd) RSV (PCR) Not Detected (Not Detectd) SARS-CoV-2 (PCR) Not Detected (Not Detectd) - Radiology Data Radiology results: report reviewed, image reviewed Disposition Clinical Impression: Pneumonia, Weakness Disposition: ADMITTED IP TO THIS HOSP
[2023-05-18] MEDS ORDERED: SODIUM CHLORIDE 0.9% 500 ML 500 ML IV STA (06:38)
[2023-05-18 06:50] LABS: ALT 71 U/L (4-49); AST 66 U/L (17-59); African American GFR (CKD) >90 (>60 ml/min/1.73 sqM); Albumin 3.1 g/dL (3.5-5.0); Alkaline Phosphatase 63 U/L (38-126); Anion Gap 7 mmol/L; Blood Urea Nitrogen 27 mg/dL (9-20); Calcium 8.4 mg/dL (8.4-10.2); Carbon Dioxide 25 mmol/L (22-30); Chloride 101 mmol/L (98-107); Creatine Kinase 34 U/L (55-170); Glucose 136 mg/dL (74-99); Magnesium 1.7 mg/dL (1.6-2.3); Non-African American GFR(CKD) 78 (>60 ml/min/1.73 sqM); Potassium 3.6 mmol/L (3.5-5.1); Sodium 133 mmol/L (137-145); Total Bilirubin 1.4 mg/dL (0.2-1.3); Total Protein 5.4 g/dL (6.3-8.2)
[2023-05-18 06:52] LABS: INR 0.9 (<1.2); Partial Thromboplastin Time 24.3 sec (22.0-30.0); Prothrombin Time 10.4 sec (10.0-12.5)
--- NOTE | 2023-05-18 07:21 | XR ---
EXAMINATION TYPE: XR chest 2V DATE OF EXAM: 05/18/2023 6:45 AM CLINICAL INDICATION:Male, 82 years old with history of Weakness; [facility] COMPARISON: Chest radiographs from 03/08/2023 TECHNIQUE: XR chest 2V Frontal and lateral views of the chest. FINDINGS: Lungs/Pleura: Right middle lobe airspace opacities. There is no evidence of pleural effusion, left fo george consolidation, or pneumothorax. Pulmonary vascularity: Pulmonary vascular congestion. Heart/mediastinum: Cardiomediastinal silhouette is enlarged and stable. Musculoskeletal: No acute osseous pathology. IMPRESSION: Right middle lobe airspace opacities correlate for pneumonia.
[2023-05-18] MEDS ORDERED: PNEUMONIA PROTOCOL UTILIZED 1 EACH MISC PO PRN (07:28)
[2023-05-18] MEDS ORDERED: AZITHROMYCIN 500 MG in SODIUM CHLORIDE 0.9% 250 ML IVPB STA (07:28)
[2023-05-18 07:46] LABS: Amorphous Sediment,Urine Few /hpf; Appearance,Urine Cloudy (Clear); Bilirubin,Urine Negative (Negative); Blood,Urine Small (Negative); Color,Urine Yellow; Glucose,Urine (UA) Negative (Negative); Hyaline Casts,Urine 1 /lpf (0-2); Ketones,Urine Negative (Negative); Leukocyte Esterase,Urine Negative (Negative); Mucus,Urine Few /hpf; Nitrite,Urine Negative (Negative); PH, Urine 5.5 (5.0-8.0); Protein,Urine 2+ (Negative); RBC,Urine <1 /hpf (0-5); Specific Gravity,Urine 1.023 (1.001-1.035); Squamous Epithelial Cell,Urine <1 /hpf (0-4); Urobilinogen,Urine <2.0 mg/dL (<2.0); WBC,Urine 2 /hpf (0-5)
[2023-05-18] MEDS ORDERED: NALOXONE 0.4 MG/ML 1 ML VIAL IV PRN (08:02)
[2023-05-18] MEDS ORDERED: HYDROcodone/APAP 5-325MG 1 EACH TAB PO PRN (08:02)
[2023-05-18] MEDS ORDERED: ONDANSETRON 4 MG/2 ML VIAL IVP PRN (08:02)
[2023-05-18] MEDS ORDERED: ACETAMINOPHEN TAB 325 MG TAB PO PRN (08:02)
[2023-05-18] MEDS ORDERED: IPRATROPIUM-ALBUTEROL 3 ML NEB INHALATION PRN (10:01)
[2023-05-18] MEDS ORDERED: BENZONATATE 100 MG CAP PO PRN (10:01)
[2023-05-18] MEDS: guaiFENesin 600 MG TABLET.ER PO SCH ×2 (10:52→22:03)
[2023-05-18] MEDS ORDERED: MAG HYDROX/AL HYDROX/SIMETH 30 ML CUP PO PRN (12:42)
--- NOTE | 2023-05-18 12:44 | P.HPIM ---
History of Present Illness H&P Date: 05/18/23 History of present illness; patient is a 82-year-old gentleman with past medical history significant for coronary artery disease, hypertension, hyperlipidemia who presented to the ER because of feeling of generalized weakness. Patient stated for the last few days he has been noticing that he has no strength in his legs, patient states that when he tries to get up his legs become shaky and he feels like he is going to fall. Patient also started noticing that he was developing a cough and he felt congested. Patient did feel warm at home, but didn't check his fever. Denies any chest pain. Patient does get short of breath on exertion. Because of the symptoms, patient presented to the ER Initial lab work done in the ER showed WBC 14.8, hemoglobin 12.3, platelet count 125, sodium 133, potassium 3.6, BUNs 27, creatinine 0.9, bilirubin 1.4, AST 66, ALT 71 UA negative for infection Influenza A not detected Influenza B not detected RSV not detected COVID-19 not detected EKG done in the ER showed heart rate of 83, no ST segment elevation or depression seen, no T-wave inversions seen. Chest x-ray done in the ER right middle lobe airspace opacities Patient admitted to internal medicine service REVIEW OF SYSTEMS: CONSTITUTIONAL: As mentioned in HPI HEENT: No recent visual problems or hearing problems. Denied any sore throat. CARDIOVASCULAR: No chest pain, orthopnea, PND, no palpitations, no syncope. PULMONARY: As mentioned in HPI GASTROINTESTINAL: No diarrhea, no nausea, no vomiting, no abdominal pain. NEUROLOGICAL: No headaches, no weakness, no numbness. HEMATOLOGICAL: Denies any bleeding or petechiae. GENITOURINARY: Denies any burning micturition, frequency, or urgency. MUSCULOSKELETAL/RHEUMATOLOGICAL: Denies any joint pain, swelling, or any muscle pain. ENDOCRINE: Denies any polyuria or polydipsia. The rest of the 14-point review of systems is negative. PHYSICAL EXAMINATION: GENERAL: The patient is alert and oriented x3, not in any acute distress. Well developed, well nourished. HEENT: Pupils are round and equally reacting to light. EOMI. No scleral icterus. No conjunctival pallor. Normocephalic, atraumatic. No pharyngeal erythema. No thyromegaly. CARDIOVASCULAR: S1 and S2 present. No murmurs, rubs, or gallops. PULMONARY: Diminished breath sounds at the lung bases, no wheezing or crackles. ABDOMEN: Soft, nontender, nondistended, normoactive bowel sounds. No palpable organomegaly. MUSCULOSKELETAL: No joint swelling or deformity. EXTREMITIES: No cyanosis, clubbing, or pedal edema. NEUROLOGICAL: Gross neurological examination did not reveal any focal deficits. SKIN: No rashes. Assessment and plan Bacterial pneumonia Hyperlipidemia History of coronary artery disease Hypertension Monitor vital signs Monitor CBC Monitor CMP Continue telemetry monitoring Blood cultures ordered Sputum cultures ordered Continue IV Rocephin and azithromycin Aggressive bronchopulmonary hygiene Continue breathing treatments Resume home meds Consult pulmonology Labs and medication were reviewed.. Continue same treatment. Continue with symptomatic treatment. Resume home medication. Monitor labs and vitals. DVT and GI prophylaxis. Further recommendations as per clinical course of the patient Dictation was produced using [employer] dictation software. please excuse any grammatical, word or spelling errors. Past Medical History Past Medical History: GERD/Reflux, Osteoarthritis (OA), Prostate Disorder, Seizure Disorder, Skin Disorder, Syncope Additional Past Medical History / Comment(s): Seizures, spouse states pt has had cardiac arrest in past, low phosphorus in past worked up extensively with at several institutions and no cause found/levels have been normal last few month/pt now off phosphorus medication, low testosterone in the past but levels have been normal last few months so pt is off testoterone rx, thought possibly had hypoglycemia, rare ocular migraines, BPH, psoriasis, lactose intolerant. History of Any Multi-Drug Resistant Organisms: None Reported Past Surgical History: Appendectomy, Hernia Repair, Pacemaker, Prostate Surgery Additional Past Surgical History / Comment(s): Prostrate vaporization and TURP, L inguinal hernia repair, deviated septum surgery, pacemaker later removed but still has wires, EGD/colonoscopy. Past Anesthesia/Blood Transfusion Reactions: No Reported Reaction Additional Past Anesthesia/Blood Transfusion Reaction / Comment(s): Pt has never received blood. Date of Last Stent Placement:: 03/07/2023 Type of Cardiac Device: Permanent Pacemaker Device Placement Date:: 1996-since removed/still has wires Past Psychological History: Anxiety Smoking Status: Never smoker Past Alcohol Use History: None Reported Past Drug Use History: None Reported - Past Family History Sister(s) Family Medical History: Thyroid Disorder Additional Family Medical History / Comment(s): Hyperthyroidism Father Family Medical History: Myocardial Infarction ([place]) Additional Family Medical History / Comment(s): Father at age 66 or 67yrs of [place] Mother Family Medical History: No Reported History Additional Family Medical History / Comment(s): AGE 93 was healthy Brother(s) Family Medical History: Cancer Additional Family Medical History / Comment(s): Older brother had geoblastoma/brain cancer and younger brother with renal cancer/renal failure and is on dialysis. Medications and Allergies Home Medications Medication Instructions Recorded Confirmed Type Aspirin EC [Ecotrin Low Dose] 81 mg PO HS 03/07/23 05/18/23 History Atorvastatin [Lipitor] 80 mg PO DAILY #90 tab 03/10/23 05/18/23 Rx Mag Hydrox/Al Hydrox/Simeth 30 ml PO Q4HR PRN ml 03/10/23 05/18/23 Rx [Maalox] Metoprolol Tartrate [Lopressor] 25 mg PO BID #180 tab 03/10/23 05/18/23 Rx Nitroglycerin Sl Tabs [Nitrostat] 0.4 mg SUBLINGUAL Q5M PRN #25 tab 03/10/23 05/18/23 Rx Multivitamins, Thera [Multivitamin 1 tab PO HS 04/03/23 05/18/23 History (formulary)] lisinopriL [Zestril] 20 mg PO DAILY 04/03/23 05/18/23 History Clopidogrel [Plavix] 75 mg PO DAILY 05/18/23 05/18/23 History Lacosamide [Vimpat] 50 mg PO DAILY 05/18/23 05/18/23 History Lacosamide [Vimpat] 100 mg PO HS 05/18/23 05/18/23 History Magnesium Oxide [Mag-Ox] 250 mg PO HS 05/18/23 05/18/23 History Allergies Allergy/AdvReac Type Severity Reaction Status Date / Time lactose AdvReac Nausea & Verified 05/18/23 12:08 Vomiting & Diarrhea Physical Exam Vitals: Vital Signs Temp Pulse Resp BP Pulse Ox 05/18/23 09:06 64 18 128/65 94 L 05/18/23 07:50 98.2 F 05/18/23 07:38 73 18 137/75 95 05/18/23 06:30 99.5 F 70 16 124/69 94 L 05/18/23 05:46 99.5 F 92 18 164/74 91 L Intake and Output 05/17/23 05/18/23 05/18/23 22:59 06:59 14:59 Other: Weight 73.482 kg Results CBC & Chem 7: 05/18/23 06:06 05/18/23 06:06 Labs: Abnormal Lab Results - Last 24 Hours (Table) 05/18/23 05/18/23 05/18/23 Range/Units 06:06 06:06 06:06 WBC 14.8 H (3.8-10.6) k/uL RBC 3.58 L (4.30-5.90) m/uL Hgb 12.3 L (13.0-17.5) gm/dL Hct 35.9 L (39.0-53.0) % MCV 100.5 H (80.0-100.0) fL Plt Count 125 L (150-450) k/uL Neutrophils # 13.4 H (1.3-7.7) k/uL Lymphocytes # 0.6 L (1.0-4.8) k/uL Sodium 133 L (137-145) mmol/L BUN 27 H (9-20) mg/dL Glucose 136 H (74-99) mg/dL Total Bilirubin 1.4 H (0.2-1.3) mg/dL AST 66 H (17-59) U/L ALT 71 H (4-49) U/L Creatine Kinase 34 L (55-170) U/L C-Reactive Protein (<1.0) mg/dL Total Protein 5.4 L (6.3-8.2) g/dL Albumin 3.1 L (3.5-5.0) g/dL Urine Protein 2+ H (Negative) Urine Blood Small H (Negative) Amorphous Sediment Few H (None) /hpf Urine Mucus Few H (None) /hpf 05/18/23 Range/Units 06:06 WBC (3.8-10.6) k/uL RBC (4.30-5.90) m/uL Hgb (13.0-17.5) gm/dL Hct (39.0-53.0) % MCV (80.0-100.0) fL Plt Count (150-450) k/uL Neutrophils # (1.3-7.7) k/uL Lymphocytes # (1.0-4.8) k/uL Sodium (137-145) mmol/L BUN (9-20) mg/dL Glucose (74-99) mg/dL Total Bilirubin (0.2-1.3) mg/dL AST (17-59) U/L ALT (4-49) U/L Creatine Kinase (55-170) U/L C-Reactive Protein 24.2 H (<1.0) mg/dL Total Protein (6.3-8.2) g/dL Albumin (3.5-5.0) g/dL Urine Protein (Negative) Urine Blood (Negative) Amorphous Sediment (None) /hpf Urine Mucus (None) /hpf
--- NOTE | 2023-05-18 14:01 | P.CNPUL ---
History of Present Illness Consult date: 05/18/23 Requesting physician: Toño Bey Reason for consult: dyspnea, abnormal CXR/CT Chief complaint: Left leg weakness, fall History of present illness: This is a pleasant 82-year-old gentleman with a known history of seizure disorder, prostate disorder, osteoarthritis, hypertension, permanent pacemaker implantation, gastroesophageal reflux disease,, remote history of smoking. He presented to the emergency room early this morning with complaints of generalized weakness. He was having trouble standing and felt like his left leg was weak and numb and he had fallen to the ground. He was having issues with shortness of breath and cough. His daughter stated he was warm and diaphoretic yesterday as well. Chest x-ray does reveal evidence of a right middle lobe airspace opacity. White count 14.8. Hemoglobin 12.3. Platelets 125. Sodium 133. Potassium 3.6. Bicarb 25. BUN 27. Creatinine 0.90. C-reactive protein 24.2. Viral screen negative. He is seen today in consultation in the emergency department. He is currently sitting up on the stretcher. He is somewhat of a poor historian. He does admit to a loose nonproductive cough. He has some shortness of breath. He is maintaining good O2 saturations in the 90s on room air currently. Current temperature 99.7. He is not tachycardic. No tachypnea. Blood pressure stable. He's been initiated on ceftriaxone and azithromycin along with bronchodilators. Review of Systems REVIEW OF SYSTEMS: CONSTITUTIONAL: Denies any recent significant weight loss or weight gain. EYES: Denies change in vision. EARS, NOSE, MOUTH, THROAT: Denies headaches, denies sore throat. CARDIOVASCULAR: Denies chest pain, palpitations or syncopal episodes. RESPIRATORY: Positive for shortness of breath, cough, congestion no hemoptysis. GASTROINTESTINAL: Denies change in appetite, denies abdominal pain GENITOURINARY: Denies hematuria, denies infections. MUSKULOSKELETAL: Weakness lower extremity. Denies pain, denies swelling. INTEGUMENTARY: Denies rash, denies eczema. NEUROLOGICAL: Denies recent memory loss, no recent seizure activity. PSYCHIATRIC: Denies anxiety, denies depression. HEMATOLOGIC/LYMPHATIC: Denies anemia, denies enlarged lymph nodes. Past Medical History Past Medical History: GERD/Reflux, Osteoarthritis (OA), Prostate Disorder, Seizure Disorder, Skin Disorder, Syncope Additional Past Medical History / Comment(s): Seizures, spouse states pt has had cardiac arrest in past, low phosphorus in past worked up extensively with at several institutions and no cause found/levels have been normal last few month/pt now off phosphorus medication, low testosterone in the past but levels have been normal last few months so pt is off testoterone rx, thought possibly had hypoglycemia, rare ocular migraines, BPH, psoriasis, lactose intolerant. History of Any Multi-Drug Resistant Organisms: None Reported Past Surgical History: Appendectomy, Hernia Repair, Pacemaker, Prostate Surgery Additional Past Surgical History / Comment(s): Prostrate vaporization and TURP, L inguinal hernia repair, deviated septum surgery, pacemaker later removed but still has wires, EGD/colonoscopy. Past Anesthesia/Blood Transfusion Reactions: No Reported Reaction Additional Past Anesthesia/Blood Transfusion Reaction / Comment(s): Pt has never received blood. Date of Last Stent Placement:: 03/07/2023 Type of Cardiac Device: Permanent Pacemaker Device Placement Date:: 1996-since removed/still has wires Past Psychological History: Anxiety Smoking Status: Never smoker Past Alcohol Use History: None Reported Past Drug Use History: None Reported - Past Family History Sister(s) Family Medical History: Thyroid Disorder Additional Family Medical History / Comment(s): Hyperthyroidism Father Family Medical History: Myocardial Infarction ([place]) Additional Family Medical History / Comment(s): Father at age 66 or 67yrs of [place] Mother Family Medical History: No Reported History Additional Family Medical History / Comment(s): AGE 93 was healthy Brother(s) Family Medical History: Cancer Additional Family Medical History / Comment(s): Older brother had geoblastoma/brain cancer and younger brother with renal cancer/renal failure and is on dialysis. Medications and Allergies Home Medications Medication Instructions Recorded Confirmed Type Aspirin EC [Ecotrin Low Dose] 81 mg PO HS 03/07/23 05/18/23 History Atorvastatin [Lipitor] 80 mg PO DAILY #90 tab 03/10/23 05/18/23 Rx Mag Hydrox/Al Hydrox/Simeth 30 ml PO Q4HR PRN ml 03/10/23 05/18/23 Rx [Maalox] Metoprolol Tartrate [Lopressor] 25 mg PO BID #180 tab 03/10/23 05/18/23 Rx Nitroglycerin Sl Tabs [Nitrostat] 0.4 mg SUBLINGUAL Q5M PRN #25 tab 03/10/23 05/18/23 Rx Multivitamins, Thera [Multivitamin 1 tab PO HS 04/03/23 05/18/23 History (formulary)] lisinopriL [Zestril] 20 mg PO DAILY 04/03/23 05/18/23 History Clopidogrel [Plavix] 75 mg PO DAILY 05/18/23 05/18/23 History Lacosamide [Vimpat] 50 mg PO DAILY 05/18/23 05/18/23 History Lacosamide [Vimpat] 100 mg PO HS 05/18/23 05/18/23 History Magnesium Oxide [Mag-Ox] 250 mg PO HS 05/18/23 05/18/23 History Allergies Allergy/AdvReac Type Severity Reaction Status Date / Time lactose AdvReac Nausea & Verified 05/18/23 12:08 Vomiting & Diarrhea Physical Exam Vitals: Vital Signs Temp Pulse Resp BP Pulse Ox 05/18/23 12:38 99.7 F H 78 18 120/63 94 L 05/18/23 10:51 77 18 128/70 94 L 05/18/23 09:06 64 18 128/65 94 L 05/18/23 07:50 98.2 F 05/18/23 07:38 73 18 137/75 95 05/18/23 06:30 99.5 F 70 16 124/69 94 L 05/18/23 05:46 99.5 F 92 18 164/74 91 L Intake and Output 05/17/23 05/18/23 05/18/23 22:59 06:59 14:59 Other: Weight 73.482 kg GENERAL EXAM: Alert, pleasant, 82-year-old male patient, on room air, comfortab le in no apparent distress. HEAD: Normocephalic. EYES: Normal reaction of pupils, equal size. NOSE: Clear with pink turbinates. THROAT: No erythema or exudates. NECK: No masses, no JVD. CHEST: No chest wall deformity. LUNGS: Equal air entry with no crackles, wheeze, rhonchi or dullness. CVS: S1 and S2 normal with no audible murmur, regular rhythm. ABDOMEN: No hepatosplenomegaly, normal bowel sounds, no guarding or rigidity. SPINE: No scoliosis or deformity SKIN: No rashes CENTRAL NERVOUS SYSTEM: No focal deficits, tone is normal in all 4 extremities. EXTREMITIES: There is no peripheral edema. No clubbing, no cyanosis. Peripheral pulses are intact. Results - Laboratory Findings CBC and BMP: 05/18/23 06:06 05/18/23 06:06 PT/INR, D-dimer PT 10.4 sec (10.0-12.5) 05/18/23 06:06 INR 0.9 (<1.2) 05/18/23 06:06 Abnormal lab findings: Abnormal Labs 05/18/23 05/18/23 05/18/23 06:06 06:06 06:06 WBC 14.8 H RBC 3.58 L Hgb 12.3 L Hct 35.9 L MCV 100.5 H Plt Count 125 L Neutrophils # 13.4 H Lymphocytes # 0.6 L Sodium 133 L BUN 27 H Glucose 136 H Total Bilirubin 1.4 H AST 66 H ALT 71 H Creatine Kinase 34 L C-Reactive Protein Total Protein 5.4 L Albumin 3.1 L Urine Protein 2+ H Urine Blood Small H Amorphous Sediment Few H Urine Mucus Few H 05/18/23 06:06 WBC RBC Hgb Hct MCV Plt Count Neutrophils # Lymphocytes # Sodium BUN Glucose Total Bilirubin AST ALT Creatine Kinase C-Reactive Protein 24.2 H Total Protein Albumin Urine Protein Urine Blood Amorphous Sediment Urine Mucus - Diagnostic Findings Chest x-ray: image reviewed Assessment and Plan Assessment: Generalized weakness cough and congestion. Possibly secondary to early right middle lobe pneumonia Leukocytosis secondary to above Hypertension History of prostate disorder History of seizure disorder Permanent pacemaker implantation History of coronary artery disease Plan: The patient was seen and evaluated Chest x-ray, labs and medications reviewed Continue ceftriaxone and azithromycin Continue bronchodilators as needed Check a pro-calcitonin Legionella screen pending We will continue to follow and make further recommendations based on his clinical status. I have personally seen and examined the patient, performed the documentation and the assessment and plan as written. Number of minutes spent on the visit: 20.
[2023-05-18] MEDS: lisinopriL 20 MG TAB PO SCH (14:23)
[2023-05-18] MEDS: ATORVASTATIN 80 MG TAB PO SCH (14:23)
[2023-05-18] MEDS: ASPIRIN 81 MG PO SCH (22:03)
[2023-05-18] MEDS: MAGNESIUM OXIDE 400 MG TAB PO SCH (22:03)
[2023-05-18] MEDS: MULTIVITAMINS, THERA 1 EACH TAB PO SCH (22:03)
[2023-05-18] MEDS: LACOSAMIDE 50 MG TABLET PO SCH (22:03)
[2023-05-18] MEDS: METOPROLOL TARTRATE 25 MG TAB PO SCH (22:03)
[2023-05-19] MEDS: guaiFENesin 600 MG TABLET.ER PO SCH ×2 (09:38→21:34)
[2023-05-19] MEDS: ATORVASTATIN 80 MG TAB PO SCH (09:38)
[2023-05-19] MEDS: METOPROLOL TARTRATE 25 MG TAB PO SCH ×2 (09:38→21:34)
[2023-05-19] MEDS: lisinopriL 20 MG TAB PO SCH (09:38)
[2023-05-19] MEDS: CLOPIDOGREL 75 MG TAB PO SCH (09:38)
[2023-05-19] MEDS: LACOSAMIDE 50 MG TABLET PO SCH ×2 (09:39→21:34)
[2023-05-19] MEDS: AZITHROMYCIN 500 MG TAB PO SCH (11:52)
--- NOTE | 2023-05-19 13:48 | P.PN ---
Subjective Progress Note Date: 05/19/23 This is a pleasant 82-year-old gentleman with a known history of seizure disorder, prostate disorder, osteoarthritis, hypertension, permanent pacemaker implantation, gastroesophageal reflux disease,, remote history of smoking. He presented to the emergency room early this morning with complaints of gener alized weakness. He was having trouble standing and felt like his left leg was weak and numb and he had fallen to the ground. He was having issues with shortness of breath and cough. His daughter stated he was warm and diaphoretic yesterday as well. Chest x-ray does reveal evidence of a right middle lobe airspace opacity. White count 14.8. Hemoglobin 12.3. Platelets 125. Sodium 133. Potassium 3.6. Bicarb 25. BUN 27. Creatinine 0.90. C-reactive protein 24.2. Viral screen negative. He is seen today in consultation in the emergency department. He is currently sitting up on the stretcher. He is somewhat of a poor historian. He does admit to a loose nonproductive cough. He has some shortness of breath. He is maintaining good O2 saturations in the 90s on room air currently. Current temperature 99.7. He is not tachycardic. No tachypnea. Blood pressure stable. He's been initiated on ceftriaxone and azithromycin along with bronchodilators. The patient is seen today 05/19/2023 in follow-up on the regular medical floor. He is currently sitting up in a chair at the bedside. Awake and alert in no acute distress. Maintaining O2 saturations in the 90s on 2 L/m per nasal cannula. He states he is feeling better today compared to yesterday. Sputum culture pending. Pro calcitonin was 0.26. He is continued on ceftriaxone and azithromycin. Remains on Tessalon Perles, Mucinex, bronchodilators. Heparin for DVT prophylaxis. He has been up ambulating with assistance and doing well. Objective - Vital Signs Vital signs: Vital Signs Temp 97.5 F L 05/19/23 11:58 Pulse 75 05/19/23 11:58 Resp 18 05/19/23 11:58 BP 166/79 05/19/23 11:58 Pulse Ox 96 05/19/23 12:14 FiO2 Intake & Output 05/18/23 05/19/23 05/19/23 18:59 06:59 18:59 Intake Total 120 Output Total 1200 Balance 120 -1200 Weight 73.482 kg Intake: Oral 120 Output: Urine 1200 Other: Voiding Method Toilet Urinal # Voids 1 - Exam GENERAL EXAM: Alert, 82-year-old male, up in a chair, on 2 liters nasal cannula, in no apparent distress. HEAD: Normocephalic. EYES: Normal reaction of pupils, equal size. NOSE: Clear with pink turbinates. THROAT: No erythema or exudates. NECK: No masses, no JVD. CHEST: No chest wall deformity. LUNGS: Equal air entry with few scattered rhonchi. CVS: S1 and S2 normal with no audible murmur, regular rhythm. ABDOMEN: No hepatosplenomegaly, normal bowel sounds, no guarding or rigidity. SPINE: No scoliosis or deformity SKIN: No rashes CENTRAL NERVOUS SYSTEM: No focal deficits, tone is normal in all 4 extremities. EXTREMITIES: There is no peripheral edema. No clubbing, no cyanosis. Peripheral pulses are intact. - Labs CBC & Chem 7: 05/18/23 06:06 05/18/23 06:06 Labs: Abnormal Lab Results - Last 24 Hours (Table) 05/18/23 Range/Units 07:45 Procalcitonin 0.26 H (0.02-0.09) ng/mL Microbiology - Last 24 Hours (Table) 05/18/23 09:09 Gram Stain - Preliminary Sputum Assessment and Plan Assessment: Generalized weakness cough and congestion. Possibly secondary to early right middle lobe pneumonia Pro calcitonin 0.26. Continued on antibiotics Leukocytosis secondary to above Hypertension History of prostate disorder History of seizure disorder Permanent pacemaker implantation History of coronary artery disease Plan: The patient was seen and evaluated Labs and medications reviewed Pro calcitonin 0.26 Continue ceftriaxone and azithromycin Continue bronchodilators as needed Legionella screen negative Titrate down the FiO2 as tolerated We will continue to follow This patient was seen independently by the nurse practitioner I have personally seen and examined the patient, performed the documentation and the assessment and plan as written. Number of minutes spent on the visit: 22.
[2023-05-19] MEDS: HEPARIN SODIUM,PORCINE 5,000 UNIT/ML 1 ML VIAL SQ SCH (15:40)
[2023-05-19 19:49] LABS: Basophils # (A) 0.03 X 10*3/uL (0.00-0.10); Basophils % (A) 0.2 %; Eosinophils # (A) 0.16 X 10*3/uL (0.04-0.35); Eosinophils % (A) 1.3 %; HCT 36.8 % (39.6-50.0); Lymphocytes # (A) 0.51 X 10*3/uL (0.90-5.00); MCH 32.8 pg (27.0-32.0); MCHC 32.6 g/dL (32.0-37.0); MCV 100.5 FL (80.0-97.0); Mean Platelet Volume 12.1 FL (9.5-12.2); Monocytes # (A) 0.52 X 10*3/uL (0.20-1.00); Monocytes % (A) 4.1 %; NRBC Per 100 WBC 0 X 10*3/uL (0.00-0.01); Neutrophils # (A) 11.45 X 10*3/uL (1.80-7.70); Neutrophils % (A) 89.9 %; Platelet Count 134 X 10*3/uL (140-440); RBC 3.66 X 10*6/uL (4.40-5.60); WBC 12.73 X 10*3/uL (4.50-10.00)
[2023-05-19 20:27] LABS: BUN/Creat Ratio 24.56 Ratio (12.00-20.00); Blood Urea Nitrogen 22.1 mg/dL (9.0-27.0); Calcium 8.3 mg/dL (8.7-10.3); Carbon Dioxide 24.3 mmol/L (21.6-31.8); Chloride 104 mmol/L (96-109); Glucose 143 mg/dL (70-110); Potassium 3.6 mmol/L (3.5-5.5); Sodium 140 mmol/L (135-145)
[2023-05-19] MEDS: MULTIVITAMINS, THERA 1 EACH TAB PO SCH (21:34)
[2023-05-19] MEDS: ASPIRIN 81 MG PO SCH (21:34)
[2023-05-19] MEDS: MAGNESIUM OXIDE 400 MG TAB PO SCH (21:34)
[2023-05-20] MEDS: HEPARIN SODIUM,PORCINE 5,000 UNIT/ML 1 ML VIAL SQ SCH ×2 (01:11→08:36)
[2023-05-20 08:31] LABS: Basophils # (A) 0.02 X 10*3/uL (0.00-0.10); Basophils % (A) 0.2 %; HCT 31.7 % (39.6-50.0); HGB 10.5 g/dL (13.0-17.0); MCH 32.9 pg (27.0-32.0); MCHC 33.1 g/dL (32.0-37.0); MCV 99.4 FL (80.0-97.0); Mean Platelet Volume 12.2 FL (9.5-12.2); Monocytes # (A) 0.64 X 10*3/uL (0.20-1.00); Monocytes % (A) 6.4 %; NRBC Per 100 WBC 0 X 10*3/uL (0.00-0.01); Neutrophils # (A) 8.32 X 10*3/uL (1.80-7.70); Neutrophils % (A) 82.9 %; Platelet Count 138 X 10*3/uL (140-440); RBC 3.19 X 10*6/uL (4.40-5.60); WBC 10.03 X 10*3/uL (4.50-10.00)
[2023-05-20] MEDS: ATORVASTATIN 80 MG TAB PO SCH (08:36)
[2023-05-20] MEDS: guaiFENesin 600 MG TABLET.ER PO SCH (08:36)
[2023-05-20] MEDS: CLOPIDOGREL 75 MG TAB PO SCH (08:36)
[2023-05-20] MEDS: METOPROLOL TARTRATE 25 MG TAB PO SCH (08:36)
[2023-05-20] MEDS: lisinopriL 20 MG TAB PO SCH (08:36)
[2023-05-20] MEDS: AZITHROMYCIN 500 MG TAB PO SCH (08:36)
[2023-05-20] MEDS: LACOSAMIDE 50 MG TABLET PO SCH (08:37)
[2023-05-20 09:05] LABS: BUN/Creat Ratio 28.25 Ratio (12.00-20.00); Blood Urea Nitrogen 22.6 mg/dL (9.0-27.0); Glucose 100 mg/dL (70-110)
[2023-05-20 09:06] LABS: ALT 175 U/L (10-49); AST 122 U/L (14-35); Albumin/Globulin Ratio 1.76 Ratio (1.60-3.17); Alkaline Phosphatase 76 U/L (41-126); Calcium 8.4 mg/dL (8.7-10.3); Carbon Dioxide 24.7 mmol/L (21.6-31.8); Chloride 105 mmol/L (96-109); Globulin 1.7 g/dL (1.6-3.3); Potassium 3.4 mmol/L (3.5-5.5); Sodium 140 mmol/L (135-145); Total Bilirubin 0.4 mg/dL (0.3-1.2); Total Protein 4.7 g/dL (6.2-8.2)
[2023-05-20] MEDS ORDERED: Potassium Replacement Protocol 1 EACH MISC MISCELLANE PRN (12:40)
[2023-05-20 12:50] VITALS: BP 153/74; PULSE 62; RESP 18; TEMP 98.8
[2023-05-20] MEDS: POTASSIUM CHLORIDE ER 20 MEQ TAB.ER PO SCH (12:57)
--- NOTE | 2023-05-20 13:07 | P.PN ---
Subjective Progress Note Date: 05/20/23 This is a pleasant 82-year-old gentleman with a known history of seizure disorder, prostate disorder, osteoarthritis, hypertension, permanent pacemaker implantation, gastroesophageal reflux disease,, remote history of smoking. He presented to the emergency room early this morning with complaints of gener alized weakness. He was having trouble standing and felt like his left leg was weak and numb and he had fallen to the ground. He was having issues with shortness of breath and cough. His daughter stated he was warm and diaphoretic yesterday as well. Chest x-ray does reveal evidence of a right middle lobe airspace opacity. White count 14.8. Hemoglobin 12.3. Platelets 125. Sodium 133. Potassium 3.6. Bicarb 25. BUN 27. Creatinine 0.90. C-reactive protein 24.2. Viral screen negative. He is seen today in consultation in the emergency department. He is currently sitting up on the stretcher. He is somewhat of a poor historian. He does admit to a loose nonproductive cough. He has some shortness of breath. He is maintaining good O2 saturations in the 90s on room air currently. Current temperature 99.7. He is not tachycardic. No tachypnea. Blood pressure stable. He's been initiated on ceftriaxone and azithromycin along with bronchodilators. The patient is seen today 05/19/2023 in follow-up on the regular medical floor. He is currently sitting up in a chair at the bedside. Awake and alert in no acute distress. Maintaining O2 saturations in the 90s on 2 L/m per nasal cannula. He states he is feeling better today compared to yesterday. Sputum culture pending. Pro calcitonin was 0.26. He is continued on ceftriaxone and azithromycin. Remains on Tessalon Perles, Mucinex, bronchodilators. Heparin for DVT prophylaxis. He has been up ambulating with assistance and doing well. The patient is seen today 05/20/2023 in follow-up on the regular medical floor. He is currently resting comfortably in bed. Awake and alert in no acute distress. Continue O2 saturations in the 90s on 2 L/m per nasal cannula. Normal saline at KVO. He remains on ceftriaxone, bronchodilators. Heparin for DVT prophylaxis. Sputum cultures positive for strep A. Blood cultures are pending. White count 10.0. Hemoglobin 10.5. Platelets 138. Sodium 140. Potassium 3.4. Bicarb 25. BUN 23. Creatinine 0.8. Glucose 87. AST 122. AST 175. Objective - Vital Signs Vital signs: Vital Signs Temp 98.8 F 05/20/23 12:47 Pulse 62 05/20/23 12:47 Resp 18 05/20/23 12:47 BP 153/74 05/20/23 12:47 Pulse Ox 92 L 05/20/23 12:47 FiO2 Intake & Output 05/19/23 05/20/23 05/20/23 18:59 06:59 18:59 Other: Voiding Method Toilet Urinal # Voids 2 1 # Bowel Movements 1 - Exam GENERAL EXAM: Alert, pleasant 82-year-old male, resting in bed, on 2 liters nasal cannula, in no apparent distress. HEAD: Normocephalic. EYES: Normal reaction of pupils, equal size. NOSE: Clear with pink turbinates. THROAT: No erythema or exudates. NECK: No masses, no JVD. CHEST: No chest wall deformity. LUNGS: Equal air entry with few scattered rhonchi. CVS: S1 and S2 normal with no audible murmur, regular rhythm. ABDOMEN: No hepatosplenomegaly, normal bowel sounds, no guarding or rigidity. SPINE: No scoliosis or deformity SKIN: No rashes CENTRAL NERVOUS SYSTEM: No focal deficits, tone is normal in all 4 extremities. EXTREMITIES: There is no peripheral edema. No clubbing, no cyanosis. Peripheral pulses are intact. - Labs CBC & Chem 7: 05/20/23 03:49 05/20/23 03:49 Labs: Abnormal Lab Results - Last 24 Hours (Table) 05/19/23 05/19/23 05/20/23 Range/Units 12:54 12:54 03:49 WBC 12.73 H 10.03 H (4.50-10.00) X 10*3/uL RBC 3.66 L 3.19 L (4.40-5.60) X 10*6/uL Hgb 12.0 L 10.5 L (13.0-17.0) g/dL Hct 36.8 L 31.7 L (39.6-50.0) % MCV 100.5 H 99.4 H (80.0-97.0) FL MCH 32.8 H 32.9 H (27.0-32.0) pg Plt Count 134 L 138 L (140-440) X 10*3/uL Immature Gran # 0.06 H 0.05 H (0.00-0.04) X 10*3/uL Neutrophils # 11.45 H 8.32 H (1.80-7.70) X 10*3/uL Lymphocytes # 0.51 L 0.80 L (0.90-5.00) X 10*3/uL Potassium (3.5-5.5) mmol/L BUN/Creatinine Ratio 24.56 H (12.00-20.00) Ratio Glucose 143 H (70-110) mg/dL Calcium 8.3 L (8.7-10.3) mg/dL AST (14-35) U/L ALT (10-49) U/L Total Protein (6.2-8.2) g/dL Albumin (3.8-4.9) g/dL 05/20/23 Range/Units 03:49 WBC (4.50-10.00) X 10*3/uL RBC (4.40-5.60) X 10*6/uL Hgb (13.0-17.0) g/dL Hct (39.6-50.0) % MCV (80.0-97.0) FL MCH (27.0-32.0) pg Plt Count (140-440) X 10*3/uL Immature Gran # (0.00-0.04) X 10*3/uL Neutrophils # (1.80-7.70) X 10*3/uL Lymphocytes # (0.90-5.00) X 10*3/uL Potassium 3.4 L (3.5-5.5) mmol/L BUN/Creatinine Ratio 28.25 H (12.00-20.00) Ratio Glucose (70-110) mg/dL Calcium 8.4 L (8.7-10.3) mg/dL AST 122 H (14-35) U/L ALT 175 H (10-49) U/L Total Protein 4.7 L (6.2-8.2) g/dL Albumin 3.0 L (3.8-4.9) g/dL Microbiology - Last 24 Hours (Table) 05/18/23 09:09 Gram Stain - Final Sputum Sputum Culture - Final Strep A 05/18/23 07:30 Blood Culture - Preliminary Blood 05/18/23 07:45 Blood Culture - Preliminary Blood Assessment and Plan Assessment: Generalized weakness cough and congestion. Possibly secondary to early right middle lobe pneumonia Pro calcitonin 0.26. Continued on antibiotics Leukocytosis secondary to above Hypertension History of prostate disorder History of seizure disorder Permanent pacemaker implantation History of coronary artery disease Plan: The patient was seen and evaluated Labs and medications reviewed Continue ceftriaxone Completed azithromycin Continue bronchodilators as needed Titrate down the FiO2 as tolerated We will continue to follow I have personally seen and examined the patient, performed the documentation and the assessment and plan as written. Number of minutes spent on the visit: 10.
== END 2023-05-20 14:28 | disposition home or self-care (01) | DRG 195 ==
LOC: EC 05:38 → 5NMEDONC 08:04 → 4SSUR 17:21 → OBSVTOIN 05-19 10:41
PROVIDERS: ADMIT Hospitalist; ATTEND Hospitalist
DX: J15.9 Unspecified bacterial pneumonia (principal); R53.1 Weakness; Z20.822 Contact with and (suspected) exposure to COVID-19; E78.5 Hyperlipidemia, unspecified; I25.10 Atherosclerotic heart disease of native coronary artery without angina pectoris; I10 Essential (primary) hypertension; F41.9 Anxiety disorder, unspecified; N40.0 Benign prostatic hyperplasia without lower urinary tract symptoms; L40.9 Psoriasis, unspecified; M19.90 Unspecified osteoarthritis, unspecified site; G40.909 Epilepsy, unspecified, not intractable, without status epilepticus; Z87.891 Personal history of nicotine dependence; Z95.0 Presence of cardiac pacemaker
CPT/HCPCS: 36415; 71046; 80048; 80053; 81001; 82550; 83605; 83735; 84145; 84484; 85025; 85610; 85730; 86140; 87040; 87070; 87205; 87449; 87635; 87636; 93005; 94760; 96361; 96365; 96366; 96367; 99285

== ENCOUNTER 2023-09-17 22:17 | Observation (INO) | payer MEDICARE ==
[2023-09-17 22:24] LABS: Glucose,Whole Blood 132 mg/dL (70-110)
--- NOTE | 2023-09-17 22:31 | ED ---
Arrhythmia/Palpitations HPI - General Chief Complaint: Arrhythmia/Palpitations Stated Complaint: low heart rate Time Seen by Provider: 09/17/23 22:19 Source: patient, EMS, RN notes reviewed, old records reviewed Mode of arrival: EMS Limitations: no limitations - History of Present Illness Initial Comments: This is an 82-year-old male to the ER for evaluation of low heart rate diaphoresis weakness lightheadedness pale. Patient feels as if he may pass out. Patient has not been feeling well. Patient feels persistently weak and sick here in the ER although improving. Patient has no travel history no sick contacts no other complaints MD Complaint: palpitations, irregular heart beat -: days(s) Arrhythmia History: atrial fibrillation (Rated cardia) Associated Symptoms: chest pain, syncope, near-syncope Treatments Prior to Arrival: other (Bradycardia given atropine) - Related Data Home Medications Medication Instructions Recorded Confirmed Aspirin EC [Ecotrin Low Dose] 81 mg PO HS 03/07/23 09/18/23 Multivitamins, Thera [Multivitamin 1 tab PO HS 04/03/23 09/18/23 (formulary)] lisinopriL [Zestril] 20 mg PO DAILY 04/03/23 09/18/23 Clopidogrel [Plavix] 75 mg PO DAILY 05/18/23 09/18/23 Lacosamide [Vimpat] 100 mg PO BID 05/18/23 09/18/23 Cyclobenzaprine [Flexeril] 10 mg PO HS PRN 09/18/23 09/18/23 Previous Rx's Medication Instructions Recorded Atorvastatin [Lipitor] 80 mg PO DAILY #90 tab 03/10/23 Nitroglycerin Sl Tabs [Nitrostat] 0.4 mg SUBLINGUAL Q5M PRN #25 tab 03/10/23 Allergies Allergy/AdvReac Type Severity Reaction Status Date / Time lactose AdvReac Nausea & Verified 09/18/23 07:08 Vomiting & Diarrhea Review of Systems ROS Statement: Those systems with pertinent positive or pertinent negative responses have been documented in the HPI. ROS Other: All systems not noted in ROS Statement are negative. Past Medical History Past Medical History: GERD/Reflux, Hypertension, Osteoarthritis (OA), Prostate Disorder, Seizure Disorder, Skin Disorder, Syncope Additional Past Medical History / Comment(s): Seizures (Pt states last seizure was in march or oswaldo of 2023), Previous OR but pt does not require exact date, low phosphorus in past worked up extensively with at several institutions and no cause found/levels have been normal last few month/pt now off phosphorus medication, low testosterone in the past but levels have been normal last few months so pt is off testoterone rx, thought possibly had hypoglycemia, BPH, psoriasis, lactose intolerant. History of Any Multi-Drug Resistant Organisms: None Reported Past Surgical History: Appendectomy, Hernia Repair, Pacemaker, Prostate Surgery Additional Past Surgical History / Comment(s): Prostrate vaporization and TURP, L inguinal hernia repair, deviated septum surgery, pacemaker later removed but still has wires, EGD/colonoscopy. Past Anesthesia/Blood Transfusion Reactions: No Reported Reaction Additional Past Anesthesia/Blood Transfusion Reaction / Comment(s): Pt has never received blood. Date of Last Stent Placement:: 03/07/2023 Type of Cardiac Device: Permanent Pacemaker Device Placement Date:: 1996-since removed/still has wires Past Psychological History: Anxiety Smoking Status: Never smoker Past Alcohol Use History: None Reported Past Drug Use History: None Reported - Past Family History Sister(s) Family Medical History: Thyroid Disorder Additional Family Medical History / Comment(s): Hyperthyroidism Father Family Medical History: Myocardial Infarction (OR) Additional Family Medical History / Comment(s): Father at age 66 or 67yrs of OR Mother Family Medical History: No Reported History Additional Family Medical History / Comment(s): AGE 93 was healthy Brother(s) Family Medical History: Cancer Additional Family Medical History / Comment(s): Older brother had geoblastoma/brain cancer and younger brother with renal cancer/renal failure and is on dialysis. General Exam Limitations: no limitations General appearance: alert, in no apparent distress Head exam: Present: atraumatic, normocephalic, normal inspection Eye exam: Present: normal appearance, PERRL, EOMI. Absent: scleral icterus, conjunctival injection, periorbital swelling ENT exam: Present: normal exam, mucous membranes moist Neck exam: Present: normal inspection. Absent: tenderness, meningismus, lymphadenopathy Respiratory exam: Present: normal lung sounds bilaterally. Absent: respiratory distress, wheezes, rales, rhonchi, stridor Cardiovascular Exam: Present: normal rhythm, bradycardia, normal heart sounds. Absent: systolic murmur, diastolic murmur, rubs, gallop, clicks GI/Abdominal exam: Present: soft, normal bowel sounds. Absent: distended, tenderness, guarding, rebound, rigid Extremities exam: Present: normal inspection, full ROM, normal capillary refill. Absent: tenderness, pedal edema, joint swelling, calf tenderness Back exam: Present: normal inspection Neurological exam: Present: alert, oriented X3, CN II-XII intact Psychiatric exam: Present: normal affect, normal mood Skin exam: Present: warm, dry, intact, normal color. Absent: rash Course Vital Signs 09/17/23 09/17/23 09/17/23 22:19 22:27 23:00 Temperature 97.6 F Pulse Rate 53 L 53 L Pulse Rate [ 51 L Building Engineer ] Respiratory 20 18 Rate Blood Pressure 153/79 153/76 O2 Sat by Pulse 97 97 Oximetry 09/18/23 09/18/23 09/18/23 00:00 02:32 04:01 Temperature Pulse Rate 60 47 L 45 L Pulse Rate [ Building Engineer ] Respiratory 16 18 14 Rate Blood Pressure 138/78 116/51 137/73 O2 Sat by Pulse 97 95 96 Oximetry 09/18/23 09/18/23 09/18/23 05:06 07:15 07:53 Temperature Pulse Rate 42 L 38 L 42 L Pulse Rate [ Building Engineer ] Respiratory 13 14 18 Rate Blood Pressure 132/66 145/70 145/70 O2 Sat by Pulse 98 94 L 97 Oximetry 09/18/23 09/18/23 09/18/23 08:00 08:30 09:00 Temperature Pulse Rate 36 L 38 L 43 L Pulse Rate [ Building Engineer ] Respiratory 19 20 18 Rate Blood Pressure 145/70 146/71 146/71 O2 Sat by Pulse 98 96 99 Oximetry 09/18/23 09/18/23 09/18/23 10:00 11:00 12:00 Temperature Pulse Rate 37 L Pulse Rate [ Building Engineer ] Respiratory 18 19 Rate Blood Pressure 128/76 155/57 O2 Sat by Pulse 99 98 Oximetry 09/18/23 09/18/23 09/18/23 13:00 14:00 15:00 Temperature Pulse Rate 37 L 37 L 40 L Pulse Rate [ Building Engineer ] Respiratory 18 18 18 Rate Blood Pressure 146/45 123/63 125/67 O2 Sat by Pulse 97 98 98 Oximetry 09/18/23 09/18/23 19:00 20:23 Temperature Pulse Rate 43 L 37 L Pulse Rate [ Building Engineer ] Respiratory 16 16 Rate Blood Pressure 122/59 117/70 O2 Sat by Pulse 96 97 Oximetry - Reevaluation(s) Reevaluation #1: 09/18/23 01:07 Medical record is reviewed Reevaluation #2: 09/18/23 01:07 Patient has no change in symptoms here in the ER but no recurrent syncope Reevaluation #3: 09/18/23 01:07 Patient informed of results questions answered Reevaluation #4: Was pt. sent in by a medical professional or institution (, NOLAN, PILOT MANAGER, urgent care, hospital, or [place] [facility] facility...) When possible be specific @ -no Did you speak to anyone other than the patient for history (EMS, parent, family, police, friend...)? What history was obtained from this source @ -no Did you review nursing and triage notes (agree or disagree)? Why? @ -agree Are old charts reviewed (outside hosp., previous admission, EMS record, old EKG, old radiological studies, urgent care reports/EKG's, [place] [facility] facility records)? Report findings @ -yes Differential Diagnosis (chest pain, altered mental status, abdominal pain women, abdominal pain men, vaginal bleeding, weakness, fever, dyspnea, syncope, headache, dizziness, GI bleed, back pain, seizure, CVA, palpatations, mental health, musculoskeletal)? @ -prior EKG interpreted by me (3pts min.). @ -yes X-rays interpreted by me (1pt min.). @ -no CT interpreted by me (1pt min.). @ -no U/S interpreted by me (1pt. min.). @ -no What testing was considered but not performed or refused? (CT, X-rays, U/S, labs)? Why? @ -none What meds were considered but not given or refused? Why? @ -none Did you discuss the management of the patient with other professionals (professionals i.e. NOLAN Henson, PILOT MANAGER, lab, RT, psych nurse, social media manager, tannery gummer, teacher, environmental technical officer, family preservation caseworker)? Give summary @ -no Was smoking cessation discussed for >3mins.? @ -no Was critical care preformed (if so, how long)? @ -yes31 Were there social determinants of health that impacted care today? How? (Homelessness, low income, unemployed, alcoholism, drug addiction, transporta tion, low edu. Level, literacy, decrease access to med. care, shelter, rehab)? @ -none Was there de-escalation of care discussed even if they declined (Discuss DNR or withdrawal of care, Hospice)? DNR status @ -no What co-morbidities impacted this encounter? (DM, HTN, Smoking, COPD, CAD, Cancer, CVA, ARF, Chemo, Hep., AIDS, mental health diagnosis, sleep apnea, morbid obesity)? @ -none Was patient admitted / discharged? Hospital course, mention meds given and route, prescriptions, significant lab abnormalities, going to OR and other pertinent info. @ - 82 male to the ER for evaluation patient [facility] for evaluation of a syncopal near syncopal event. Patient is found to be persistently bradycardic here in the ER with history of heart disease. Patient admitted for cardiology observation Admitted Undiagnosed new problem with uncertain prognosis? @ -no Drug Therapy requiring intensive monitoring for toxicity (Heparin, Nitro, Insulin, Cardizem)? @ -no Were any procedures done? @ -no Diagnosis/symptom? @ -Weakness bradycardia near syncope Acute, or Chronic, or Acute on Chronic? @ -Acute Uncomplicated (without systemic symptoms) or Complicated (systemic symptoms)? @ -Complicated Side effects of treatment? @ -no Exacerbation, Progression, or Severe Exacerbation? @ -exacerbation Poses a threat to life or bodily function? How? (Chest pain, USA, OR, pneumonia, PE, COPD, DKA, ARF, appy, cholecystitis, CVA, Diverticulitis, Homicidal, Suicidal, threat to staff... and all critical care pts) @ -yes with extremes of age and arrhythmia Reevaluation #5: Differential Syncope: Valvular disease, hypertrophic cardiomyopathy, pulmonary embolism, tamponade, tachycardia, bradycardia, OR, hypovolemia, hemorrhage, dissection, anemia, intracranial hemorrhage, seizure, hypoglycemia, carbon monoxide poisoning, this is not meant to be an all-inclusive list. EKG Findings - EKG Comments: EKG Findings:: EKG is sinus bradycardia 59 KS 189 QRS 118 QTc 450 - EKG Results: EKG: interpreted by DANIEL Medical Decision Making - Medical Decision Making 82 male to the ER for evaluation patient [facility] for evaluation of a syncopal near syncopal event. Patient is found to be persistently bradycardic here in the ER with history of heart disease. Patient admitted for cardiology observation - Lab Data Result diagrams: 09/19/23 09:24 09/19/23 09:24 Lab Results 09/17/23 09/17/23 09/17/23 Range/Units 22:22 23:10 23:10 WBC 4.7 (3.8-10.6) k/uL RBC 3.69 L (4.30-5.90) m/uL Hgb 12.2 L (13.0-17.5) gm/dL Hct 37.6 L (39.0-53.0) % MCV 102.0 H (80.0-100.0) fL MCH 33.0 (25.0-35.0) pg MCHC 32.4 (31.0-37.0) g/dL RDW 13.7 (11.5-15.5) % Plt Count 116 L (150-450) k/uL MPV 9.0 Neutrophils % 75 % Lymphocytes % 16 % Monocytes % 5 % Eosinophils % 1 % Basophils % 0 % Neutrophils # 3.6 (1.3-7.7) k/uL Lymphocytes # 0.8 L (1.0-4.8) k/uL Monocytes # 0.3 (0-1.0) k/uL Eosinophils # 0.1 (0-0.7) k/uL Basophils # 0.0 (0-0.2) k/uL Macrocytosis Slight PT 11.6 (10.0-12.5) sec INR 1.1 (<1.2) APTT 24.9 (22.0-30.0) sec D-Dimer 0.43 (<0.60) mg/L FEU Sodium (137-145) mmol/L Potassium (3.5-5.1) mmol/L Chloride (98-107) mmol/L Carbon Dioxide (22-30) mmol/L Anion Gap mmol/L BUN (9-20) mg/dL Creatinine (0.66-1.25) mg/dL Est GFR (CKD-EPI)AfAm (>60 ml/min/1.73 sqM) Est GFR (CKD-EPI)NonAf (>60 ml/min/1.73 sqM) Glucose (74-99) mg/dL POC Glucose (mg/dL) 132 H (70-110) mg/dL POC Glu Regional Guide ID Brunilda Ibarra Calcium (8.4-10.2) mg/dL Magnesium (1.6-2.3) mg/dL Total Bilirubin (0.2-1.3) mg/dL AST (17-59) U/L ALT (4-49) U/L Alkaline Phosphatase (38-126) U/L Troponin I (0.000-0.034) ng/mL Total Protein (6.3-8.2) g/dL Albumin (3.5-5.0) g/dL TSH (0.465-4.680) mIU/L 09/17/23 09/17/23 09/17/23 Range/Units 23:10 23:10 23:10 WBC (3.8-10.6) k/uL RBC (4.30-5.90) m/uL Hgb (13.0-17.5) gm/dL Hct (39.0-53.0) % MCV (80.0-100.0) fL MCH (25.0-35.0) pg MCHC (31.0-37.0) g/dL RDW (11.5-15.5) % Plt Count (150-450) k/uL MPV Neutrophils % % Lymphocytes % % Monocytes % % Eosinophils % % Basophils % % Neutrophils # (1.3-7.7) k/uL Lymphocytes # (1.0-4.8) k/uL Monocytes # (0-1.0) k/uL Eosinophils # (0-0.7) k/uL Basophils # (0-0.2) k/uL Macrocytosis PT (10.0-12.5) sec INR (<1.2) APTT (22.0-30.0) sec D-Dimer (<0.60) mg/L FEU Sodium 140 (137-145) mmol/L Potassium 4.0 (3.5-5.1) mmol/L Chloride 111 H (98-107) mmol/L Carbon Dioxide 23 (22-30) mmol/L Anion Gap 6 mmol/L BUN 35 H (9-20) mg/dL Creatinine 0.85 (0.66-1.25) mg/dL Est GFR (CKD-EPI)AfAm >90 (>60 ml/min/1.73 sqM) Est GFR (CKD-EPI)NonAf 80 (>60 ml/min/1.73 sqM) Glucose 124 H (74-99) mg/dL POC Glucose (mg/dL) (70-110) mg/dL POC Glu Regional Guide ID Calcium 8.5 (8.4-10.2) mg/dL Magnesium 1.8 (1.6-2.3) mg/dL Total Bilirubin 0.5 (0.2-1.3) mg/dL AST 56 (17-59) U/L ALT 73 H (4-49) U/L Alkaline Phosphatase 93 (38-126) U/L Troponin I <0.012 (0.000-0.034) ng/mL Total Protein 5.8 L (6.3-8.2) g/dL Albumin 3.5 (3.5-5.0) g/dL TSH 2.190 (0.465-4.680) mIU/L - EKG Data -: EKG Interpreted by Me Critical Care Time Critical Care Time: Yes Total Critical Care Time: 31 Disposition Clinical Impression: Weakness, Syncope, Near syncope, Palpitations, Bradycardia Disposition: ADMITTED IP TO THIS HOSP Condition: Fair Is patient prescribed a controlled substance at d/c from ED?: No Time of Disposition: 01:00
[2023-09-17] MEDS: SODIUM CHLORIDE 0.9% 1,000 ML IV STA ×2 (23:18)
[2023-09-17 23:55] LABS: Basophils % (A) 0 %; Eosinophils # (A) 0.1 k/uL (0-0.7); Eosinophils % (A) 1 %; HCT 37.6 % (39.0-53.0); HGB 12.2 gm/dL (13.0-17.5); Lymphocytes # (A) 0.8 k/uL (1.0-4.8); Lymphocytes % (A) 16 %; MCHC 32.4 g/dL (31.0-37.0); Macrocytosis Slight; Monocytes # (A) 0.3 k/uL (0-1.0); Monocytes % (A) 5 %; Neutrophils # (A) 3.6 k/uL (1.3-7.7); Neutrophils % (A) 75 %; Platelet Count 116 k/uL (150-450); RBC 3.69 m/uL (4.30-5.90); RDW 13.7 % (11.5-15.5); WBC 4.7 k/uL (3.8-10.6)
[2023-09-18 00:05] LABS: ALT 73 U/L (4-49); AST 56 U/L (17-59); African American GFR (CKD) >90 (>60 ml/min/1.73 sqM); Albumin 3.5 g/dL (3.5-5.0); Alkaline Phosphatase 93 U/L (38-126); Anion Gap 6 mmol/L; Blood Urea Nitrogen 35 mg/dL (9-20); Calcium 8.5 mg/dL (8.4-10.2); Carbon Dioxide 23 mmol/L (22-30); Chloride 111 mmol/L (98-107); Glucose 124 mg/dL (74-99); Magnesium 1.8 mg/dL (1.6-2.3); Non-African American GFR(CKD) 80 (>60 ml/min/1.73 sqM); Sodium 140 mmol/L (137-145); Total Bilirubin 0.5 mg/dL (0.2-1.3); Total Protein 5.8 g/dL (6.3-8.2)
[2023-09-18 00:19] LABS: INR 1.1 (<1.2); Partial Thromboplastin Time 24.9 sec (22.0-30.0); Prothrombin Time 11.6 sec (10.0-12.5)
[2023-09-18] MEDS ORDERED: NALOXONE 0.4 MG/ML 1 ML VIAL IV PRN (01:03)
[2023-09-18] MEDS ORDERED: ONDANSETRON 4 MG/2 ML VIAL IVP PRN (01:03)
[2023-09-18] MEDS ORDERED: MAG HYDROX/AL HYDROX/SIMETH 30 ML CUP PO PRN (07:01)
[2023-09-18] MEDS ORDERED: NITROGLYCERIN SL TABS 0.4 MG TAB SUBLINGUAL PRN (07:01)
[2023-09-18] MEDS: CLOPIDOGREL 75 MG TAB PO SCH (08:57)
[2023-09-18] MEDS: LACOSAMIDE 50 MG TABLET PO SCH (08:57)
[2023-09-18] MEDS: ATORVASTATIN 80 MG TAB PO SCH (08:57)
[2023-09-18] MEDS: lisinopriL 20 MG TAB PO SCH (08:57)
[2023-09-18] MEDS ORDERED: NON FORMULARY DRUG (Cefuroxime Axetil [Ceftin] 500 MG Tablet) PO SCH (09:00)
[2023-09-18] MEDS ORDERED: METOPROLOL TARTRATE 25 MG TAB PO SCH (09:00)
--- NOTE | 2023-09-18 11:37 | P.CRDCN ---
History of Present Illness History of present illness: HISTORY OF PRESENT ILLNESS: This is a 82-year-old male with a past medical history significant for hypertension, hyperlipidemia, coronary artery disease with previous stenting, and ischemic cardiomyopathy. Patient follows in the office with Dr. Jovel. We have been asked to see the patient in consultation for bradycardia. Patient examined at the bedside in the emergency room. Patient's family is present. Patient states he was watching a movie yesterday when he felt like his brain began to get " foggy". He states that he felt very weak. His family reports that he looked pale and was diaphoretic. He did report feeling nauseated and had an episode of vomiting x 1. His family reports that he kept saying "something is not right". He denied having any chest pain or pressure. He denied any shortness of breath. The patient did not lose consciousness at home. The patient was found to be bradycardic upon admission to the hospital with a heart rate in the 50s. Patient states he is feeling well this morning. He denies any dizziness or lightheadedness. Bedside telemetry reveals heart rate in the 40s50s. DIAGNOSTICS: - EKG reveals sinus bradycardia with no signs of acute ischemia. Heart rate 52. - Laboratory data: WBC 4.7. Hemoglobin 12.2. Platelet count 116. D-dimer 0.43. Sodium 140. Potassium 4.0. BUN 35. Creatinine 0.85. Troponin negative x 3. - Current home cardiac medications include lisinopril 20 mg daily, metoprolol tartrate 25 mg twice a day, Plavix 75 mg daily, Lipitor 80 mg daily, and aspirin 81 mg daily. - Most recent echocardiogram obtained in March 2023 revealed ejection fraction 40 to 45%, apical hypokinesis of septum, inferior, anterior, and lateral lala, mild MR, mild TR - Cardiac catheterization history: March 2023 with PCI of left main into LAD postdilated with a 4.5 NC balloon left main and proximal LAD. Patient was found to have 95% ostial LAD, diagonal 70% stenosis, circumflex 30 to 40% stenosis, proximal RCA 50% stenosis. REVIEW OF SYSTEMS: At the time of my exam: CONSTITUTIONAL: Denies fever or chills. HEENT: Denies blurred vision, vision changes, or eye pain. Denies hemoptysis CARDIOVASCULAR: Denies chest pain. Denies orthopnea. Denies PND. Denies palpitations RESPIRATORY: Denies shortness of breath. GASTROINTESTINAL: Denies abdominal pain. Denies nausea or vomiting. HEMATOLOGIC: Denies bleeding disorders. GENITOURINARY: Denies any blood in urine. SKIN: Denies pruitis. Denies rash. PHYSICAL EXAM: VITAL SIGNS: Reviewed. GENERAL: Well-developed in no acute distress. HEENT: Head is normocephalic. Pupils are equal, round. Sclerae anicteric. Mucous membranes of the mouth are moist. Neck supple. No JVD or thyromegaly LUNGS: Respirations even and unlabored. Lungs essentially clear to auscultation bilaterally. HEART: Bradycardic. Regular rate and rhythm. S1 and S2 heard. ABDOMEN: Soft. Nondistended. Nontender. EXTREMITIES: Normal range of motion. No clubbing or cyanosis. Peripheral pulse s intact. No lower extremity edema NEUROLOGIC: Awake and alert. Oriented x 3. ASSESSMENT: Generalized weakness Sinus bradycardia without syncope History of anterolateral STEMI, status post stenting of left main into LAD, March 2023 Ischemic cardiomyopathy, EF 40 to 45% Hypertension Hyperlipidemia PLAN: Obtain 2D echo to assess cardiac structure and function Check TSH Hold metoprolol at this time Continue telemetry monitoring Anticipate improvement in heart rates with discontinuation of beta-amy. If patient continues to be bradycardic despite discontinuation of beta-amy, will will reassess for need for pacemaker implantation. However no indication for permanent pacemaker at this time. Further recommendations pending patient course Nurse practitioner note has been reviewed by physician. Signing provider agrees with the documented findings, assessment, and plan of care documented by [employer]PECTOR as a scribe. 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 History of Any Multi-Drug Resistant Organisms: None Reported Past Surgical History: Appendectomy, Hernia Repair, Pacemaker, Prostate Surgery Additional Past Surgical History / Comment(s): Prostrate vaporization and TURP, L inguinal hernia repair, deviated septum surgery, pacemaker later removed but still has wires, EGD/colonoscopy. Past Anesthesia/Blood Transfusion Reactions: No Reported Reaction Additional Past Anesthesia/Blood Transfusion Reaction / Comment(s): Pt has never received blood. Date of Last Stent Placement:: 03/07/2023 Type of Cardiac Device: Permanent Pacemaker Device Placement Date:: 1996-since removed/still has wires Past Psychological History: Anxiety Smoking Status: Never smoker Past Alcohol Use History: None Reported Past Drug Use History: None Reported - Past Family History Sister(s) Family Medical History: Thyroid Disorder Additional Family Medical History / Comment(s): Hyperthyroidism Father Family Medical History: Myocardial Infarction ([place]) Additional Family Medical History / Comment(s): Father at age 66 or 67yrs of [place] Mother Family Medical History: No Reported History Additional Family Medical History / Comment(s): AGE 93 was healthy Brother(s) Family Medical History: Cancer Additional Family Medical History / Comment(s): Older brother had ge oblastoma/brain cancer and younger brother with renal cancer/renal failure and is on dialysis. Medications and Allergies Home Medications Medication Instructions Recorded Confirmed Type Aspirin EC [Ecotrin Low Dose] 81 mg PO HS 03/07/23 09/18/23 History Atorvastatin [Lipitor] 80 mg PO DAILY #90 tab 03/10/23 09/18/23 Rx Metoprolol Tartrate [Lopressor] 25 mg PO BID #180 tab 03/10/23 09/18/23 Rx Nitroglycerin Sl Tabs [Nitrostat] 0.4 mg SUBLINGUAL Q5M PRN #25 tab 03/10/23 09/18/23 Rx Multivitamins, Thera [Multivitamin 1 tab PO HS 04/03/23 09/18/23 History (formulary)] lisinopriL [Zestril] 20 mg PO DAILY 04/03/23 09/18/23 History Clopidogrel [Plavix] 75 mg PO DAILY 05/18/23 09/18/23 History Lacosamide [Vimpat] 100 mg PO BID 05/18/23 09/18/23 History Cyclobenzaprine [Flexeril] 10 mg PO HS PRN 09/18/23 09/18/23 History Allergies Allergy/AdvReac Type Severity Reaction Status Date / Time lactose AdvReac Nausea & Verified 09/18/23 07:08 Vomiting & Diarrhea Physical Exam Vitals: Vital Signs Temp Pulse Pulse Resp BP Pulse Ox 09/18/23 07:53 42 L 18 145/70 97 09/18/23 07:15 38 L 14 145/70 94 L 09/18/23 05:06 42 L 13 132/66 98 09/18/23 04:01 45 L 14 137/73 96 09/18/23 02:32 47 L 18 116/51 95 09/18/23 00:00 60 16 138/78 97 09/17/23 23:00 53 L 18 153/76 97 09/17/23 22:27 51 L 09/17/23 22:19 97.6 F 53 L 20 153/79 97 Intake and Output 09/17/23 09/18/23 09/18/23 22:59 06:59 14:59 Other: Weight 74.389 kg Results 09/17/23 23:10 09/17/23 23:10 Cardiac Enzymes 09/17/23 09/17/23 09/18/23 Range/Units 23:10 23:10 03:33 AST 56 (17-59) U/L Troponin I <0.012 <0.012 (0.000-0.034) ng/mL Coagulation 09/17/23 Range/Units 23:10 PT 11.6 (10.0-12.5) sec APTT 24.9 (22.0-30.0) sec CBC 09/17/23 Range/Units 23:10 WBC 4.7 (3.8-10.6) k/uL RBC 3.69 L (4.30-5.90) m/uL Hgb 12.2 L (13.0-17.5) gm/dL Hct 37.6 L (39.0-53.0) % Plt Count 116 L (150-450) k/uL Comprehensive Metabolic Panel 09/17/23 Range/Units 23:10 Sodium 140 (137-145) mmol/L Potassium 4.0 (3.5-5.1) mmol/L Chloride 111 H (98-107) mmol/L Carbon Dioxide 23 (22-30) mmol/L BUN 35 H (9-20) mg/dL Creatinine 0.85 (0.66-1.25) mg/dL Glucose 124 H (74-99) mg/dL Calcium 8.5 (8.4-10.2) mg/dL AST 56 (17-59) U/L ALT 73 H (4-49) U/L Alkaline Phosphatase 93 (38-126) U/L Total Protein 5.8 L (6.3-8.2) g/dL Albumin 3.5 (3.5-5.0) g/dL Current Medications Generic Name Dose Route Start Last Admin Trade Name Freq PRN Reason Stop Dose Admin Aspirin 81 mg 09/18/23 21:00 Aspirin 81 Mg PO HS [facility] Atorvastatin Calcium 80 mg 09/18/23 09:00 Atorvastatin 80 Mg Tab PO DAILY [facility] Clopidogrel Bisulfate 75 mg 09/18/23 09:00 Clopidogrel 75 Mg Tab PO DAILY [facility] Lacosamide 100 mg 09/18/23 09:00 Lacosamide 50 Mg Tablet PO BID [facility] Lisinopril 20 mg 09/18/23 09:00 Lisinopril 20 Mg Tab PO DAILY [facility] Multivitamins 1 each 09/18/23 21:00 Multivitamins, Thera 1 Each Tab PO HS [facility] Naloxone HCl 0.2 mg 09/18/23 01:03 Naloxone 0.4 Mg/Ml 1 Ml Vial IV Q2M PRN Opioid Reversal Nitroglycerin 0.4 mg 09/18/23 07:01 Nitroglycerin Sl Tabs 0.4 Mg Tab SUBLINGUAL Q5M PRN Chest Pain Ondansetron HCl 4 mg 09/18/23 01:03 Ondansetron 4 Mg/2 Ml Vial IVP Q8HR PRN Nausea And Vomiting Intake and Output 09/17/23 09/18/23 09/18/23 22:59 06:59 14:59 Other: Weight 74.389 kg 09/17/23 23:10 09/17/23 23:10
--- NOTE | 2023-09-18 12:16 | P.HPIM ---
History of Present Illness H&P Date: 09/18/23 History of present illness; patient is a 82-year-old gentleman past medical history significant for seizures, hypertension, who presented to the ER for generalized weakness and lethargy. Patient stated he has not been feeling well since last night. Patient stated that he was all right last night when while watching TV he started noticing he was getting weak and lethargic. Patient has been noticing that his legs were getting swollen over the last few days. Denies any chest pain or shortness of breath. There is no complaint orthopnea or PND. Denies any nausea, vomiting abdominal pain. Patient also noticed that his heart rate was low. Because of the symptoms, patient came to the ER Initial lab work done in the ER showed WBC 4.7, hemoglobin 12.2, platelet count 116, sodium 140, potassium 4, BUN 35, creatinine 0.85, glucose 124, troponin 0.012, AST 56, ALT 73 EKG done in the ER showed heart rate of 52, no ST segment elevation or depression seen, no T-wave inversions seen. Patient admitted to internal medicine service REVIEW OF SYSTEMS: CONSTITUTIONAL: As mentioned above HEENT: No recent visual problems or hearing problems. Denied any sore throat. CARDIOVASCULAR: As mentioned above PULMONARY: No shortness of breath, no cough, no hemoptysis. GASTROINTESTINAL: No diarrhea, no nausea, no vomiting, no abdominal pain. NEUROLOGICAL: No headaches, no weakness, no numbness. HEMATOLOGICAL: Denies any bleeding or petechiae. GENITOURINARY: Denies any burning micturition, frequency, or urgency. MUSCULOSKELETAL/RHEUMATOLOGICAL: Denies any joint pain, swelling, or any muscle pain. ENDOCRINE: Denies any polyuria or polydipsia. The rest of the 14-point review of systems is negative. PHYSICAL EXAMINATION: GENERAL: The patient is alert and oriented x3, not in any acute distress. Well developed, well nourished. HEENT: Pupils are round and equally reacting to light. EOMI. No scleral icterus. No conjunctival pallor. Normocephalic, atraumatic. No pharyngeal erythema. No thyromegaly. CARDIOVASCULAR: S1 and S2 present. No murmurs, rubs, or gallops. Bradycardia PULMONARY: Chest is clear to auscultation, no wheezing or crackles. ABDOMEN: Soft, nontender, nondistended, normoactive bowel sounds. No palpable organomegaly. MUSCULOSKELETAL: No joint swelling or deformity. EXTREMITIES: No cyanosis, clubbing. 1+ pitting edema of lower extremities bilaterally NEUROLOGICAL: Gross neurological examination did not reveal any focal deficits. SKIN: No rashes. Assessment and plan Sinus bradycardia pre-Syncope Hypertension Seizures Monitor vital signs Monitor CBC Monitor CMP Continue telemetry monitoring Trend troponin Avoid AV sierra blocking agents Continue IV fluids Ordered 2D echo Continue aspirin, Lipitor Consult cardiology Labs and medication were reviewed.. Continue same treatment. Continue with symptomatic treatment. Resume home medication. Monitor labs and vitals. DVT and GI prophylaxis. Further recommendations as per clinical course of the pat ient Dictation was produced using [employer] dictation software. please excuse any grammatical, word or spelling errors. Past Medical History Past Medical History: GERD/Reflux, Hypertension, Osteoarthritis (OA), Prostate Disorder, Seizure Disorder, Skin Disorder, Syncope Additional Past Medical History / Comment(s): Seizures (Pt states last seizure was in march or january of 2023), Previous MA but pt does not require exact date, low phosphorus in past worked up extensively with at several institutions and no cause found/levels have been normal last few month/pt now off phosphorus medication, low testosterone in the past but levels have been normal last few months so pt is off testoterone rx, thought possibly had hypoglycemia, BPH, psoriasis, lactose intolerant. History of Any Multi-Drug Resistant Organisms: None Reported Past Surgical History: Appendectomy, Hernia Repair, Pacemaker, Prostate Surgery Additional Past Surgical History / Comment(s): Prostrate vaporization and TURP, L inguinal hernia repair, deviated septum surgery, pacemaker later removed but still has wires, EGD/colonoscopy. Past Anesthesia/Blood Transfusion Reactions: No Reported Reaction Additional Past Anesthesia/Blood Transfusion Reaction / Comment(s): Pt has never received blood. Date of Last Stent Placement:: 03/07/2023 Type of Cardiac Device: Permanent Pacemaker Device Placement Date:: 1996-since removed/still has wires Past Psychological History: Anxiety Smoking Status: Never smoker Past Alcohol Use History: None Reported Past Drug Use History: None Reported - Past Family History Sister(s) Family Medical History: Thyroid Disorder Additional Family Medical History / Comment(s): Hyperthyroidism Father Family Medical History: Myocardial Infarction ([place]) Additional Family Medical History / Comment(s): Father at age 66 or 67yrs of [place] Mother Family Medical History: No Reported History Additional Family Medical History / Comment(s): AGE 93 was healthy Brother(s) Family Medical History: Cancer Additional Family Medical History / Comment(s): Older brother had geoblastoma/brain cancer and younger brother with renal cancer/renal failure and is on dialysis. Medications and Allergies Home Medications Medication Instructions Recorded Confirmed Type Aspirin EC [Ecotrin Low Dose] 81 mg PO HS 03/07/23 09/18/23 History Atorvastatin [Lipitor] 80 mg PO DAILY #90 tab 03/10/23 09/18/23 Rx Metoprolol Tartrate [Lopressor] 25 mg PO BID #180 tab 03/10/23 09/18/23 Rx Nitroglycerin Sl Tabs [Nitrostat] 0.4 mg SUBLINGUAL Q5M PRN #25 tab 03/10/23 09/18/23 Rx Multivitamins, Thera [Multivitamin 1 tab PO HS 04/03/23 09/18/23 History (formulary)] lisinopriL [Zestril] 20 mg PO DAILY 04/03/23 09/18/23 History Clopidogrel [Plavix] 75 mg PO DAILY 05/18/23 09/18/23 History Lacosamide [Vimpat] 100 mg PO BID 05/18/23 09/18/23 History Cyclobenzaprine [Flexeril] 10 mg PO HS PRN 09/18/23 09/18/23 History Allergies Allergy/AdvReac Type Severity Reaction Status Date / Time lactose AdvReac Nausea & Verified 09/18/23 07:08 Vomiting & Diarrhea Physical Exam Vitals: Vital Signs Temp Pulse Pulse Resp BP Pulse Ox 09/18/23 09:00 43 L 18 146/71 99 09/18/23 08:30 38 L 20 146/71 96 09/18/23 08:00 36 L 19 145/70 98 09/18/23 07:53 42 L 18 145/70 97 09/18/23 07:15 38 L 14 145/70 94 L 09/18/23 05:06 42 L 13 132/66 98 09/18/23 04:01 45 L 14 137/73 96 09/18/23 02:32 47 L 18 116/51 95 09/18/23 00:00 60 16 138/78 97 09/17/23 23:00 53 L 18 153/76 97 09/17/23 22:27 51 L 09/17/23 22:19 97.6 F 53 L 20 153/79 97 Intake and Output 09/17/23 09/18/23 09/18/23 22:59 06:59 14:59 Other: Weight 74.389 kg Results CBC & Chem 7: 09/17/23 23:10 09/17/23 23:10 Labs: Abnormal Lab Results - Last 24 Hours (Table) 09/17/23 09/17/23 09/17/23 Range/Units 22:22 23:10 23:10 RBC 3.69 L (4.30-5.90) m/uL Hgb 12.2 L (13.0-17.5) gm/dL Hct 37.6 L (39.0-53.0) % MCV 102.0 H (80.0-100.0) fL Plt Count 116 L (150-450) k/uL Lymphocytes # 0.8 L (1.0-4.8) k/uL Chloride 111 H (98-107) mmol/L BUN 35 H (9-20) mg/dL Glucose 124 H (74-99) mg/dL POC Glucose (mg/dL) 132 H (70-110) mg/dL ALT 73 H (4-49) U/L Total Protein 5.8 L (6.3-8.2) g/dL
--- NOTE | 2023-09-18 12:21 | CA ---
Transthoracic Echo Report Name: Wilson Lozano Age: 82 Gender: M : 1940 Exam Date: 09/18/2023 10:53 Exam Location: [place] [facility] Ht (in): 73 Wt (lb): 164 Ordering Physician: Susan James Attending/Referring Phys: James Jovel DO ([email or web address]) Surgical Services Coordinator Edel Perez RCS Procedure CPT: Indications: LV function Cardiac Hx: Technical Quality: Good Contrast 1: Total Dose (mL): Contrast 2: Total Dose (mL): MEASUREMENTS (Male / Female) Normal Values 2D ECHO LV Diastolic Diameter PLAX 4.9 cm 4.2 - 5.9 / 3.9 - 5.3 cm LV Systolic Diameter PLAX 3.5 cm IVS Diastolic Thickness 0.9 cm 0.6 - 1.0 / 0.6 - 0.9 cm LVPW Diastolic Thickness 1.1 cm 0.6 - 1.0 / 0.6 - 0.9 cm LV Relative Wall Thickness 0.4 RV Internal Dim ED PLAX 3.4 cm LVOT Diameter 2.1 cm Aortic Root Diameter 3.7 cm LV Diastolic Volume MOD BP 134.4 cm??? 67 - 155 / 56 - 104 cm??? LV Systolic Volume MOD BP 61.1 cm??? - 58 / 19 - 49 cm??? LV Ejection Fraction MOD BP 54.5 % >= 55 % LV Cardiac Index MOD BP 1389.1 cm???/min???m??? LV Diastolic Volume MOD 4C 127.3 cm??? LV Systolic Volume MOD 4C 60.0 cm??? LV Ejection Fraction MOD 4C 52.8 % LV Cardiac Index MOD 4C 1274.3 cm???/min???m??? LV Diastolic Length 4C 8.9 cm LV Systolic Length 4C 7.6 cm LV Diastolic Volume MOD 2C 141.8 cm??? LV Systolic Volume MOD 2C 58.7 cm??? LV Ejection Fraction MOD 2C 58.6 % LV Cardiac Index MOD 2C 1574.9 cm???/min???m??? LV Diastolic Length 2C 8.9 cm LV Systolic Length 2C 7.0 cm LA Volume 69.4 cm??? 18 - 58 / 22 - 52 cm??? LA Volume Index 35.5 cm???/m??? 16 - 28 cm???/m??? Ascending Aorta Diameter 3.5 cm DOPPLER AV Peak Velocity 118.6 cm/s AV Peak Gradient 5.6 mmHg AV Mean Velocity 83.5 cm/s AV Mean Gradient 3.1 mmHg AV Velocity Time Integral 32.7 cm LVOT Peak Velocity 84.0 cm/s LVOT Peak Gradient 2.8 mmHg LVOT Velocity Time Integral 21.9 cm LVOT Stroke Volume 78.2 cm??? LVOT Stroke Volume Index 39.5 ml/m??? LVOT Cardiac Index 1482.3 cm???/min???m??? AV Area Cont Eq vti 2.4 cm??? AV Area Cont Eq pk 2.5 cm??? MV Area PHT 2.9 cm??? Mitral E Point Velocity 63.9 cm/s Mitral A Point Velocity 91.4 cm/s Mitral E to A Ratio 0.7 MV Deceleration Time 263.6 ms TR Peak Velocity 220.0 cm/s TR Peak Gradient 19.4 mmHg Right Ventricular Systolic Press 28.4 mmHg PV Peak Velocity 48.2 cm/s PV Peak Gradient 0.9 mmHg FINDINGS Left Ventricle Left ventricular ejection fraction is estimated at 50-55 %. Mildly increased left ventricular systolic volume. Mildly decreased left ventricular ejection fraction. Left ventricular wall thickness normal. Global hypokinesis. Right Ventricle Mild right ventricular dilatation with normal function. Right ventricular systolic pressure within normal limits. Right Atrium Normal right atrial size. Left Atrium Moderately increased left atrial volume. Mitral Valve Mitral valve thickened. No evidence for mitral valve prolapse. No mitral stenosis. Mild mitral regurgitation. Aortic Valve Trileaflet aortic valve. No aortic stenosis. Trace aortic regurgitation. Tricuspid Valve Structurally normal tricuspid valve. Mild tricuspid regurgitation. No tricuspid stenosis. Pulmonic Valve Structurally normal pulmonic valve. No pulmonic stenosis. Trace pulmonic regurgitation. Pericardium No pericardial effusion. Aorta Normal size aortic root and proximal ascending aorta. CONCLUSIONS Normal LV function Mild mitral regurgitation Previewed by: Dr. Rip Lopez MD (Electronically Signed) Final Date: 18 September 2023 12:21
[2023-09-18] MEDS ORDERED: NON FORMULARY DRUG (Lacosamide [Vimpat] 100 MG Tablet) PO SCH (21:00)
[2023-09-18] MEDS ORDERED: NON FORMULARY DRUG (Magnesium Oxide 250 MG Tab) PO SCH (21:00)
[2023-09-18] MEDS: ASPIRIN 81 MG PO SCH (21:45)
[2023-09-18] MEDS: MULTIVITAMINS, THERA 1 EACH TAB PO SCH (21:45)
[2023-09-19 09:58] VITALS: TEMP 97.9
[2023-09-19 10:53] LABS: Basophils % (A) 0 %; Eosinophils # (A) 0.1 k/uL (0-0.7); Eosinophils % (A) 1 %; HCT 38.7 % (39.0-53.0); HGB 12.2 gm/dL (13.0-17.5); Lymphocytes # (A) 0.9 k/uL (1.0-4.8); Lymphocytes % (A) 16 %; MCH 32.7 pg (25.0-35.0); MCHC 31.5 g/dL (31.0-37.0); MCV 103.6 fL (80.0-100.0); Macrocytosis Slight; Mean Platelet Volume 9.9; Monocytes # (A) 0.3 k/uL (0-1.0); Monocytes % (A) 5 %; Neutrophils # (A) 4.5 k/uL (1.3-7.7); Neutrophils % (A) 77 %; Platelet Count 107 k/uL (150-450); RBC 3.74 m/uL (4.30-5.90); RDW 14.1 % (11.5-15.5); WBC 5.8 k/uL (3.8-10.6)
[2023-09-19 11:20] LABS: ALT 61 U/L (4-49); AST 41 U/L (17-59); African American GFR (CKD) >90 (>60 ml/min/1.73 sqM); Albumin 3.4 g/dL (3.5-5.0); Alkaline Phosphatase 57 U/L (38-126); Anion Gap 5 mmol/L; Blood Urea Nitrogen 27 mg/dL (9-20); Calcium 8.8 mg/dL (8.4-10.2); Carbon Dioxide 27 mmol/L (22-30); Chloride 108 mmol/L (98-107); Glucose 80 mg/dL (74-99); Magnesium 1.9 mg/dL (1.6-2.3); Non-African American GFR(CKD) 83 (>60 ml/min/1.73 sqM); Phosphorus 3.2 mg/dL (2.5-4.5); Potassium 3.6 mmol/L (3.5-5.1); Sodium 140 mmol/L (137-145); Total Bilirubin 0.7 mg/dL (0.2-1.3); Total Protein 5.6 g/dL (6.3-8.2)
--- NOTE | 2023-09-19 12:09 | P.PN ---
Subjective HISTORY OF PRESENT ILLNESS: This is a 82-year-old male with a past medical history significant for hypertension, hyperlipidemia, coronary artery disease with previous stenting, and ischemic cardiomyopathy. Patient follows in the office with Dr. Jovel. We have been asked to see the patient in consultation for bradycardia. Patient examined at the bedside in the emergency room. Patient's family is present. Patient states he was watching a movie yesterday when he felt like his brain began to get " foggy". He states that he felt very weak. His family reports that he looked pale and was diaphoretic. He did report feeling nauseated and had an episode of vomiting x 1. His family reports that he kept saying "something is not right". He denied having any chest pain or pressure. He denied any shortness of breath. The patient did not lose consciousness at home. The patient was found to be bradycardic upon admission to the hospital with a heart rate in the 50s. Patient states he is feeling well this morning. He denies any dizziness or lightheadedness. Bedside telemetry reveals heart rate in the 40s50s. DIAGNOSTICS: - EKG reveals sinus bradycardia with no signs of acute ischemia. Heart rate 52. - Laboratory data: WBC 4.7. Hemoglobin 12.2. Platelet count 116. D-dimer 0.43. Sodium 140. Potassium 4.0. BUN 35. Creatinine 0.85. Troponin negative x 3. - Current home cardiac medications include lisinopril 20 mg daily, metoprolol tartrate 25 mg twice a day, Plavix 75 mg daily, Lipitor 80 mg daily, and aspirin 81 mg daily. - Most recent echocardiogram obtained in March 2023 revealed ejection fraction 40 to 45%, apical hypokinesis of septum, inferior, anterior, and lateral lala, mild MR, mild TR - Cardiac catheterization history: March 2023 with PCI of left main into LAD postdilated with a 4.5 NC balloon left main and proximal LAD. Patient was found to have 95% ostial LAD, diagonal 70% stenosis, circumflex 30 to 40% stenosis, proximal RCA 50% stenosis. 09/19/2023 Patient examined this morning at the bedside. Patient denies chest pain or pressure. He denies shortness of breath. Denies dizziness or lightheadedness. No episodes of syncope since being in the hospital. Patient was up in the shower this morning. Patient was also ambulating in the hallway today without any complaints. Echocardiogram completed revealing ejection fraction 50 to 55%, trace aortic regurgitation, mild tricuspid regurgitation, and mild mitral regurgitation. D-dimer 0.43. TSH 2.190. PHYSICAL EXAM: VITAL SIGNS: Reviewed. GENERAL: Well-developed in no acute distress. HEENT: Head is normocephalic. Pupils are equal, round. Sclerae anicteric. Mucous membranes of the mouth are moist. Neck supple. No JVD or thyromegaly LUNGS: Respirations even and unlabored. Lungs essentially clear to auscultation bilaterally. HEART: Bradycardic. Regular rate and rhythm. S1 and S2 heard. ABDOMEN: Soft. Nondistended. Nontender. EXTREMITIES: Normal range of motion. No clubbing or cyanosis. Peripheral pulses intact. No lower extremity edema NEUROLOGIC: Awake and alert. Oriented x 3. ASSESSMENT: Generalized weakness Sinus bradycardia without syncope History of anterolateral STEMI, status post stenting of left main into LAD, March 2023 Ischemic cardiomyopathy, EF 40 to 45% Hypertension Hyperlipidemia PLAN: Continue to hold metoprolol Continue telemetry monitoring Patient remains bradycardic this morning. However he is asymptomatic. He has been up ambulating in the hallway and also took a shower this morning without any dizziness or lightheadedness. No syncope. No plans for pacemaker implantation at this time Patient may be discharged home today from a cardiac standpoint Nurse practitioner note has been reviewed by physician. Signing provider agrees with the documented findings, assessment, and plan of care documented by D[employer] as a scribe. Objective - Vital Signs Vital signs: Vital Signs Temp 97.9 F 09/19/23 09:20 Pulse 49 L 09/19/23 09:20 Resp 17 09/19/23 09:20 BP 153/71 09/19/23 09:20 Pulse Ox 97 09/19/23 09:20 FiO2 Intake & Output 09/18/23 09/19/23 09/19/23 18:59 06:59 18:59 Intake Total 550 358 Balance 550 358 Weight 74.389 kg Intake: IV 10 Invasive Line 1 10 Oral 540 358 Other: Voiding Method Toilet Toilet Urinal Urinal # Voids 1 - Labs CBC & Chem 7: 09/17/23 23:10 09/17/23 23:10
[2023-09-19 12:13] VITALS: BP 162/82; PULSE 50; RESP 18
--- NOTE | 2023-09-19 13:00 | P.DS ---
Providers Date of admission: 09/18/23 01:05 Expected date of discharge: 09/19/23 Attending physician: Rosalie Ramirez Consults: 09/18/23 01:03 Consult Physician Routine Consulting Provider: Kishor Cohen Consult Reason/Comments: elizabeth Do you want consulting provider notified?: Yes Primary care physician: [facility] Course: Discharge diagnoses; Sinus bradycardia pre-Syncope Hypertension Seizures Hospital course; patient is a 82-year-old gentleman past medical history significant for seizures, hypertension, who presented to the ER for generalized weakness and lethargy. Patient stated he has not been feeling well since last night. Patient stated that he was all right last night when while watching TV he started noticing he was getting weak and lethargic. Patient has been noticing that his legs were getting swollen over the last few days. Denies any chest pain or shortness of breath. There is no complaint orthopnea or PND. Denies any nausea, vomiting abdominal pain. Patient also noticed that his heart rate was low. Because of the symptoms, patient came to the ER Initial lab work done in the ER showed WBC 4.7, hemoglobin 12.2, platelet count 116, sodium 140, potassium 4, BUN 35, creatinine 0.85, glucose 124, troponin 0.012, AST 56, ALT 73 EKG done in the ER showed heart rate of 52, no ST segment elevation or depression seen, no T-wave inversions seen. Patient admitted to internal medicine service 09/18. Patient seen and examined. Blood work done showed WBC 5.8, hemoglobin 12.2, platelet count 107. Vital signs this morning temperature 97.9, heart rate 49, blood pressure 153/71. 2D echo done showed mild mitral regurg, normal LV function. Cardiology recommended discontinuing beta-blockers. Recommend outpatient follow-up with cardiology PHYSICAL EXAMINATION: GENERAL: The patient is alert and oriented x3, not in any acute distress. Well developed, well nourished. HEENT: Pupils are round and equally reacting to light. EOMI. No scleral icterus. No conjunctival pallor. Normocephalic, atraumatic. No pharyngeal erythema. No thyromegaly. CARDIOVASCULAR: S1 and S2 present. No murmurs, rubs, or gallops. PULMONARY: Chest is clear to auscultation, no wheezing or crackles. ABDOMEN: Soft, nontender, nondistended, normoactive bowel sounds. No palpable organomegaly. MUSCULOSKELETAL: No joint swelling or deformity. EXTREMITIES: No cyanosis, clubbing, or pedal edema. NEUROLOGICAL: Gross neurological examination did not reveal any focal deficits. SKIN: No rashes. Dictation was produced using [employer] dictation software. please excuse any grammatical, word or spelling errors. Patient Condition at Discharge: Fair Plan - Discharge Summary Discharge Rx Participant: No New Discharge Prescriptions: Continue Atorvastatin [Lipitor] 80 mg PO DAILY #90 tab lisinopriL [Zestril] 20 mg PO DAILY Multivitamins, Thera [Multivitamin (formulary)] 1 tab PO HS Clopidogrel [Plavix] 75 mg PO DAILY Lacosamide [Vimpat] 100 mg PO BID Cyclobenzaprine [Flexeril] 10 mg PO HS PRN PRN Reason: Muscle Spasm Aspirin EC [Ecotrin Low Dose] 81 mg PO HS Nitroglycerin Sl Tabs [Nitrostat] 0.4 mg SUBLINGUAL Q5M PRN #25 tab PRN Reason: Chest Pain Discontinued Metoprolol Tartrate [Lopressor] 25 mg PO BID #180 tab Discharge Medication List Aspirin EC [Ecotrin Low Dose] 81 mg PO HS 03/07/23 [History] Atorvastatin [Lipitor] 80 mg PO DAILY #90 tab 03/10/23 [Rx] Nitroglycerin Sl Tabs [Nitrostat] 0.4 mg SUBLINGUAL Q5M PRN #25 tab 03/10/23 [Rx] Multivitamins, Thera [Multivitamin (formulary)] 1 tab PO HS 04/03/23 [History] lisinopriL [Zestril] 20 mg PO DAILY 04/03/23 [History] Clopidogrel [Plavix] 75 mg PO DAILY 05/18/23 [History] Lacosamide [Vimpat] 100 mg PO BID 05/18/23 [History] Cyclobenzaprine [Flexeril] 10 mg PO HS PRN 09/18/23 [History] Follow up Appointment(s)/Referral(s): Courtney Pearson [Primary Care Provider] - 1-2 days James Jovel DO [STAFF PHYSICIAN] - 1 Week Discharge Disposition: HOME SELF-CARE
== END 2023-09-19 13:22 | disposition home or self-care (01) ==
LOC: EC 22:17 → 3SCARD 09-18 01:05
PROVIDERS: ADMIT Hospitalist; ATTEND Hospitalist
DX: R00.1 Bradycardia, unspecified (principal); R55 Syncope and collapse; I48.91 Unspecified atrial fibrillation; I10 Essential (primary) hypertension; I25.10 Atherosclerotic heart disease of native coronary artery without angina pectoris; E78.5 Hyperlipidemia, unspecified; R22.43 Localized swelling, mass and lump, lower limb, bilateral; I34.0 Nonrheumatic mitral (valve) insufficiency; I25.5 Ischemic cardiomyopathy; G40.909 Epilepsy, unspecified, not intractable, without status epilepticus; I25.2 Old myocardial infarction; N40.0 Benign prostatic hyperplasia without lower urinary tract symptoms; M19.90 Unspecified osteoarthritis, unspecified site; K21.9 Gastro-esophageal reflux disease without esophagitis; E73.9 Lactose intolerance, unspecified; Z95.5 Presence of coronary angioplasty implant and graft; Z82.49 Family history of ischemic heart disease and other diseases of the circulatory system; Z79.899 Other long term (current) drug therapy; Z79.82 Long term (current) use of aspirin; Z79.02 Long term (current) use of antithrombotics/antiplatelets; Z88.8 Allergy status to other drugs, medicaments and biological substances
CPT/HCPCS: 96360; 96361; 99285; 36415; 93005; 93306; 97162; 97166; 85379; 80053 ×2; 84443; 83735 ×2; 84100; 84484 ×2; 85025 ×2; 85610; 85730; G0378 ×2

== ENCOUNTER → 2023-12-09 | Outpatient (CLI) | payer MEDICARE ==
[2023-12-09 17:47] LABS: HCT 38.4 % (39.6-50.0); HGB 12.3 g/dL (13.0-17.0); MCH 33.3 pg (27.0-32.0); MCV 104.1 FL (80.0-97.0); Mean Platelet Volume 11.2 FL (9.5-12.2); NRBC Per 100 WBC 0 X 10*3/uL (0.00-0.01); Platelet Count 166 X 10*3/uL (140-440); RBC 3.69 X 10*6/uL (4.40-5.60); RDW 13.7 % (11.5-14.5); WBC 5.68 X 10*3/uL (4.50-10.00)
[2023-12-09 18:31] LABS: T4, Free (Free Thyroxine) 0.98 ng/dL (0.80-1.80)
== END | disposition home or self-care (01) ==
LOC: LABWHC1 11:17
PROVIDERS: ATTEND Psychiatry & Neurology Neurology
DX: G72.9 Myopathy, unspecified (principal); R53.1 Weakness; R20.2 Paresthesia of skin; Z79.899 Other long term (current) drug therapy
CPT/HCPCS: 36415; 82550; 82607; 84439; 84443; 85027

== ENCOUNTER → 2023-12-24 | Outpatient (CLI) | payer MEDICARE ==
[2023-12-24 15:19] LABS: ALT 23 U/L (10-49); AST 26 U/L (14-35); Chol/HDL Ratio 1.49 Ratio; LDL Cholesterol,Calculated 30.9 mg/dL (0.0-131.0); VLDL Calculation 8.08 mg/dL (5.00-40.00)
== END | disposition home or self-care (01) ==
LOC: LABWHC1 09:54
PROVIDERS: ATTEND Internal Medicine
DX: E78.2 Mixed hyperlipidemia (principal)
CPT/HCPCS: 36415; 80061; 84450; 84460

== ENCOUNTER → 2024-03-17 | Outpatient (CLI) | payer MEDICARE ==
[2024-03-17 15:13] LABS: ALT 23 U/L (10-49); AST 27 U/L (14-35); Chol/HDL Ratio 1.84 Ratio; LDL Cholesterol,Calculated 57.7 mg/dL (0.0-131.0)
== END | disposition home or self-care (01) ==
LOC: LABWHC1 09:06
PROVIDERS: ATTEND Nurse Practitioner Acute Care
DX: E78.2 Mixed hyperlipidemia (principal)
CPT/HCPCS: 36415; 80061; 84450; 84460